=== PATIENT | male | born 1940 | race Caucasian/White ===

== ENCOUNTER 2023-03-27 14:25 | Emergency (ER) | payer MEDICARE, OTHER, SELFPAY ==
[2023-03-27 14:29] VITALS: BP 115/70
--- NOTE | 2023-03-27 15:27 | ED.MUSCINJ ---
HPI-Injury
General
Chief Complaint: Musculo-Skeletal Complaint
Source: patient and spouse
Exam Limitations: none
Time Seen by Provider: 03/27/23 15:16
Nursing documentation reviewed up to this point in time: agreed with
Travel History
Have you had any contact with someone who has COVID-19?: No
Do you have any symptoms of coronavirus? Fever > 100 degrees, chills, cough, shortness of breath, sore throat, loss of taste or smell, muscle aches, or headache?: No
History of Present Illness-Injury
Is this injury a work related problem?: No
[facility] No
Initial Injury comments:
Patient was attempting to urinate in a bottle and urine spilled. He slipped on urine and fell. Sustained a laceration to his left dorsal hand. has been caring for wound, antibiotic ointment and dressing. States yesterday hand began to become
red. SHe had amoxicilling 500mg at home. He has had 3 doses without improvement. He was evaluated at urgent care and advised to come to ED. Denies fever/chills. Full ROM to hand. Injury occurred 1 week ago. 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 On at
time of fall.
Past History
Past History
ED Past Medical History: Arrthythmia (atrial fibrillation), Cancer (Lung, prostate, Skin CA), CHF, COPD, GERD, HTN, Hypercholesterolemia, Hypothyroidism, Psychiatric (Anxiety, Depression) and Other (TBI, Sleep apnea, CPCP, Renal calculus, Detached
retina, )
ED Past Surgical History: Cardiac (Pacemaker/Def for VF, Ablation X 2, ), Orthopedic (Plate in cervical spine) and Other (Prostatectomy, resection of a lung mass, surgery for a left detached retina,. AAA, Hernia, )
Social History
Tobacco: Former smoker
Alcohol: None
Drug: None
Personal:
Living: with family
Employment: Employed
Family History
Family History: Other (Mother with cancer of the breast followed with COPD)
Review of Systems
Review of Systems
Allergies reviewed?: Yes
All Other Systems: ROS reviewed and negative except as documented in HPI and ROS
Constitutional: Reports no symptoms
Musculoskeletal: Reports other (Full ROM to left hand, neurovasculary intact.)
Skin: Reports other (4cm granulated wound dorsum of left hand. Surrounding erythema and swelling. MInimal bloody discharge. )
Neurological: Reports no symptoms
Psychiatric: Reports no symptoms
Musculoskeletal Injury Exam
Musculoskeletal Injury Exam
Left Dorsal Hand:
Pain with Movement?: Moderate
Tender to palpation?: Moderate
Soft tissue swelling?: Moderate
External deformity and angulation?: None
Joint effusion?: None
Contusion?: Moderate
Hematoma-local bleeding into tissue?: None
Strain- Sprain- Tear (Connective tissue injury)?: Moderate
Crepitus with movement?: No
Joint instability?: No
Malalignment/deformity?: No
Range of motion: Full
Distal skin color and temperature: normal-warm & good color
Capillary Refill: normal
Normal distal neurovascular exam?: Yes
Peripheral Pulses: radial (left): 3+
Phy Exam
General Physical Exam
General Presentation: well appearing and no apparent distress
General age: appears stated age
General Skin: warm and dry
General Habitus: normal
General Mental: alert
Musculoskeletal Exam
Musculoskeletal Exam: full ROM and neuro vasc intact
Skin Exam
Skin Exam: normal color, warm/dry, no rash and other (4cm granulatedlaceraton to dorsum of left hand. Surrounding erythema)
Psychiatric Exam
Psychiatric Exam: normal mood/affect
Injury Course
Orders/Labs/Results
Orders:
Orders
03/27/23 14:32
Hand, Left 3 View [CR Hand - Left Min 3 Views] Urgent
Comment:
Reason For Exam: swelling after fall
03/27/23 15:29
Complete Blood Count/With Diff Urgent
Comprehensive Metabolic Panel Urgent
Lactate Level [Lactic Acid] Urgent
Prothrombin Time Urgent
Wound Culture [Wound/Abscess/Other Culture] Urgent
LALI Source: Hand
Specimen Description: Left
Date Specimen was Collected: 03/27/23
Time Specimen was Collected: 15:28
03/27/23 16:02
Doxycycline [Vibramycin] 100 mg PO NOW STA
03/27/23 16:10
Tetanus/Diphth/Acelpertussis [Adacel] 0.5 ml IM .ONCE ONE
Abnormal Lab Results
03/27/23
15:29
RBC 4.17 L 10^6/uL
(4.70-6.10)
Hgb 12.7 L g/dL
(13.0-18.0)
MCHC 32.5 L g/dL
(33.0-37.0)
RDW 14.8 H %
(11.5-14.5)
Absolute Lymphs (auto) 0.9 L 10^3/uL
(1.2-3.4)
Neutrophils % 77.6 H %
(42.2-75.2)
Lymphocytes % 12.3 L %
(20.5-51.1)
PT 21.2 H Sec
(11.4-14.6)
BUN 29 H mg/dl
(9-20)
Creatinine 1.4 H mg/dL
(0.7-1.3)
Glucose 105 H mg/dl
(70-99)
03/27/23 15:29
03/27/23 15:29
*Critical Care Note
Total Time (30-74mins, 75-104mins- exclusive of procedures): Not Applicable
ED Attending Note
-
Portions of this chart may have been created with voice recognition software.� Occasional wrong word or��sound alike� substitutions may have occurred due to the inherent limitations of voice recognition software.
Discharge Plan
Departure
Patient Disposition: Home (Routine Discharge)
Date of Disposition: 03/27/23
Time of Disposition: 16:03
Patient with high blood pressure during this ER visit?: No
Condition: Good
Covid-19: Not Applicable
Discharge Problem:
Cellulitis
Instructions: Wound Care (DC), Cellulitis (Skin Infection), Adult (DC)
Prescriptions:
New
doxycycline hyclate 100 mg capsule
100 mg PO BID Qty: 20 0RF
No Action
amiodarone [Pacerone] 200 MG tablet
200 mg PO DAILY
magnesium 200 MG tablet
200 mg PO Q48H
Entresto 1 EACH tablet
1 ea PO BID
Rx Instructions:
24-26mg
sertraline 100 MG tablet
100 mg PO HS
omeprazole 40 MG capsule,delayed release(DR/EC)
20 mg PO BID
spironolactone 25 MG tablet
12.5 mg PO DAILY
cholecalciferol (vitamin D3) 2,000 UNITS tablet
2,000 units PO DAILY
melatonin 10 MG tablet
10 mg PO HS
multivitamin 1 EACH tablet
1 ea PO DAILY
vitamin B complex 1 TAB tablet
1 tab PO DAILY
atorvastatin 80 mg Tablet
80 mg PO HS
carvedilol 6.25 mg Tablet
6.25 mg PO BID
divalproex 250 mg Tablet,Delayed Release (Dr/Ec)
250 mg PO BID
acetaminophen 500 mg Tablet
1,000 mg PO BID
methyl salicylate-menthol Ointment
0 ea TOPICAL TIDPRN PRN (Reason: back pain)
vitamins-lipotropics Tablet
1 tab PO BID
warfarin [Jantoven] 4 MG tablet
4 mg PO QPM
acetaminophen 325 mg Tablet
650 mg PO Q4HPRN PRN (Reason: mild pain/STEELE) Qty: 30 0RF
alprazolam 0.25 MG tablet
0.25 mg PO DAILYPRN PRN (Reason: anxiety) Qty: 2 0RF
Patient Comments:
01/02/22: Per PDMP, last filled 07/18/21 #90 for 30 days
levothyroxine [Synthroid] 25 mcg Tablet
25 mcg PO DAILY
lidocaine [Lidoderm] 5 % Adhesive Patch,Medicated
1 patch TOPICAL DAILY
oxybutynin chloride 5 mg Tablet
5 mg PO DAILY
vitamins-lipotropics Tablet
1 tab PO DAILY
ciprofloxacin HCl 750 mg tablet
750 mg PO BID Qty: 8 0RF
prednisone 10 mg Tablet
See Rx Instructions .ROUTE .COMPLEX Qty: 20 0RF
Rx Instructions:
Take By Mouth:
40 mg daily x2 days, 30 mg daily x2 days,
20 mg daily x2 days, 10 mg daily x2 days
Referrals:
NONE,* [Active] -
Activity Restrictions/Additional Instructions:
Warm compresses to hand 15-20 minutes at a time, 4-5 times daily. Return to the emergency department immediately for fever/chills, increasing redness/swelling/pain to hand, or for any further concerns. Keep wound clean with soap and water, apply
antibiotic ointment two times daily. Keep your hand elevated.
Interventions
Interventions:
*Risk Screen - Suicide Last Done: 03/27/23 15:25
*General Assessment Last Done: 03/27/23 15:25
*Neglect/Abuse Screening Last Done: 03/27/23 15:25
ED- Fall Risk Assessment Last Done: 03/27/23 16:40
*ED COVID-19 Vaccine History Last Done: 03/27/23 15:25
*Nursing Disposition Last Done: 03/27/23 16:40
ED-Musculoskeletal Assessment Last Done: 03/27/23 15:25
Discharge Date and Time
Discharge Date/Time: 03/27/23 16:41
[2023-03-27 15:50] LABS: % Basophils 0.3 % (0-2); % Eosinophils 0.9 % (0-6); % Immature Granulocytes 0.3 % (0-0.5); % Lymphocytes 12.3 % (20.5-51.1); % Monocytes 8.6 % (1.7-9.3); % Neutrophils 77.6 % (42.2-75.2); Absolute Eosinophils 0.1 10^3/uL (0-0.7); Absolute Lymphocytes 0.9 10^3/uL (1.2-3.4); Absolute Monocytes 0.6 10^3/uL (0.1-0.6); Absolute Neutrophils 5.8 10^3/uL (1.4-6.5); Hematocrit 39.1 % (39.0-52.0); Hemoglobin 12.7 g/dL (13.0-18.0); Mean Corp Hgb Conc. 32.5 g/dL (33.0-37.0); Mean Corpuscular Hgb 30.5 pg (27.0-31.0); Mean Corpuscular Volume 93.8 fL (80.0-94.0); Mean Platelet Volume 10.3 fL (7.4-10.4); Nucleated Red Blood Cells % 0 % (-); Platelet Count 134 10^3/uL (130-400); Red Blood Cell Count 4.17 10^6/uL (4.70-6.10); Red Cell Dist. Width 14.8 % (11.5-14.5); White Blood Cell Count 7.5 10^3/uL (4.8-10.8)
[2023-03-27 15:57] LABS: INR 1.86; PT 21.2 Sec (11.4-14.6)
[2023-03-27 16:00] LABS: Lactic Acid 1.1 mmol/L (0.7-2.0)
[2023-03-27 16:11] LABS: ALT (SGPT) 27 U/L (0-50); AST (SGOT) 28 U/L (17-59); Alkaline Phosphatase 98 U/L (38-126); Blood Urea Nitrogen 29 mg/dl (9-20); Calcium 8.9 mg/dl (8.4-10.2); Carbon Dioxide 29 mmol/L (22-30); Chloride 99 mmol/L (98-107); Glucose 105 mg/dl (70-99); Sodium 138 mmol/L (135-145); Total Bilirubin 0.8 mg/dl (0.2-1.3); Total Protein 6.5 g/dl (6.3-8.2); eGFR 50.81
[2023-03-27] MEDS: VIBRAMYCIN 100 MG PO (16:21)
[2023-03-27] MEDS: ADACEL 0.5 ML IM (16:22)
== END 2023-03-27 16:41 | disposition home or self-care (01) ==
LOC: EMR 14:25
PROVIDERS: Nurse Practitioner; EMERGENCY PHYSICIAN Student in an Organized Health Care Education/Training Program; FAMILY PHYSICIAN Internal Medicine
DX: L03.114 Cellulitis of left upper limb (principal); S61.412A Laceration without foreign body of left hand, initial encounter; W01.0XXA Fall on same level from slipping, tripping and stumbling without subsequent striking against object, initial encounter; Z87.891 Personal history of nicotine dependence; Z23 Encounter for immunization
CPT/HCPCS: 99285; 90471; 73130; 80053; 83605; 85025; 85610; 87070; 87147; 87186; 87205; 90715

== ENCOUNTER 2023-03-31 08:12 | Emergency (ER) | payer MEDICARE, OTHER, SELFPAY ==
[2023-03-31] VITALS (10 sets, daily range): BP systolic 87–128; BP diastolic 52–85; PULSE 80; O2SAT 96; BMI 32.9
--- NOTE | 2023-03-31 08:23 | ED.GENMED ---
History of Present Illness
General
Chief Complaint: Generalized Pain
Source: patient and spouse
Exam Limitations: none
Time Seen by Provider: 03/31/23 08:14
Nursing documentation reviewed up to this point in time: agreed with
History of Present Illness
History of Present Illness:
83-year-old male with history of neck surgery with cadaver bones and a plate, states he awakened at 430 this morning when he got up to urinate, with severe 10/10 left-sided neck pain that radiates down to left shoulder. He took an oxycodone 2.5 mg
and Justin-flowers topical at 6 AM with little relief. He denies any recent overuse or injury. He denies weakness, numbness or tingling in his arms.
Past History
Past History
ED Past Medical History: Arrthythmia (atrial fibrillation), Cancer (Lung, prostate, Skin CA), CHF, COPD, GERD, HTN, Hypercholesterolemia, Hypothyroidism, Psychiatric (Anxiety, Depression) and Other (TBI, Sleep apnea, CPCP, Renal calculus, Detached
retina, )
ED Past Surgical History: Cardiac (Pacemaker/Def for VF, Ablation X 2, ), Orthopedic (Plate in cervical spine) and Other (Prostatectomy, resection of a lung mass, surgery for a left detached retina,. AAA, Hernia, )
Social History
Tobacco: Former smoker
Alcohol: None
Drug: None
Personal:
Living: with family
Employment: Employed
Family History
Family History: Other (Mother with cancer of the breast followed with COPD)
Review of Systems
Review of Systems
Allergies reviewed?: Yes
All Other Systems: ROS reviewed and negative except as documented in HPI and ROS
Constitutional: Denies fever or chills
EENT: Denies sore throat
Respiratory: Denies trouble breathing
Cardiac: Denies chest pain
ABD/GI: Denies abdominal pain or nausea
Musculoskeletal: Reports neck pain
Skin: Reports other (scattered psoriatic patches)
Neurological: Denies headache, weakness or numbness
Phy Exam
Physical Exam
Physical Exam:
GENERAL: No acute distress. A&Ox3.
CONSTITUTIONAL: Afebrile.
EYES: Clear, conjunctivae normal
ENMT: moist mucus membranes, Pharynx nl
RESPIRATORY: Regular respirations, nonlabored, lungs clear.
CARDIOVASCULAR: Regular rate and rhythm, no murmurs, no rubs.
GI: Soft, nontender, normal BS
MUSCULOSKELETAL: No bony neck tenderness. Left paracervical soft tissue tenderness with palpation. Head is rotated slightly to the left due to pain. Well perfused.
SKIN: Warm, dry, pink
PSYCH: Normal mood and affect. Well kept, interactive and appropriate
NEUROLOGIC: Awake, alert and oriented. No focal neurological deficits. Hand grasp equal, 5/5. Sensation to touch equal bilateral upper extremities.
Course
Orders/Labs/Results
Orders:
Orders
03/31/23 08:22
Acetaminophen [Tylenol] 650 mg PO NOW STA
Diazepam [Valium] 5 mg PO NOW STA
CR Cervical Spine 2 or 3 Vw Urgent
Comment:
Reason For Exam: woke with left side neck pain
03/31/23 10:56
Physical Therapy Consult [Pt Eval And Treat] Urgent
Treatment: ambulate with walker
Activity Level: As Tolerated
03/31/23 12:09
Case Management Consult ONCE
Case Management Consult: Discharge Planning
Requested By:: PHYSICIAN
Comment: P/T in and P/T don't think safe to go home. works at [employer] and wants to know if
he can go there for rehab Pt has TBI and gets frequent home P/T
Vital Signs
Initial and Last Documented VS:
Initial Vital Signs
Temp Pulse Resp BP Pulse Ox
98.2 F 88 17 128/85 93
03/31/23 08:16 03/31/23 08:16 03/31/23 08:16 03/31/23 08:16 03/31/23 08:16
Last Documented Vital Signs
Temp Pulse Resp BP Pulse Ox
98.5 F 80 19 100/58 96
03/31/23 13:15 03/31/23 13:01 03/31/23 13:01 03/31/23 13:01 03/31/23 13:15
MDM/Problems Addressed
Differential Diagnosis Includes:
Torticollis, DJD, arthritis flare
MDM/Problems Addressed:
83-year-old male with history of neck surgery with cadaver bones and a plate, states he awakened at 430 this morning when he got up to urinate, with severe 10/10 left-sided neck pain that radiates down to left shoulder. He took an oxycodone 2.5 mg
and Justin-flowers topical at 6 AM with little relief. He denies any recent overuse or injury. He denies weakness, numbness or tingling in his arms.
No recent injury
03/31/2023 1018 AM
Patient more comfortable after Valium
C-spine xray radiology result reviewed: IMPRESSION:
Significant degenerative disk and joint disease. Prior anterior fusion at C5-6. Mild anterior listhesis of C3 on C4.
No definite acute process.
03/31/2023 1056 AM
Cervical spine x-ray radiology report read: IMPRESSION:
Significant degenerative disk and joint disease. Prior anterior fusion at C5-6. Mild anterior listhesis of C3 on C4.
Patient remains somnolent but arousable
at bedside is concerned with him going home due to his history of falls and his imbalance issues. She states [facility] him more physical therapy.
Due to this history and 's concern, will have physical therapy evaluate to be sure he is safe to go home to ambulate with a walker as usual.
03/31/2023 1233 PM
Physical therapy and an states the patient is unsteady with his walker and is at a risk for falls
at bedside states he does fall, is unsteady on his feet but this is nothing new. She states she has noted a decline in his physical abilities
Case management in and spoke with and daughter and patient, there is no funding for him to go into a rehab facility for physical therapy. She will order home physical and Occupational Therapy.
and daughter are comfortable with this plan.
I offered to admit him overnight but they declined
They say they have help at home to get him into the house, various family members stay with him as he is not safe to stay alone, this is nothing new
Patient asking for a muscle relaxant, I prescribed 5 pills of Flexeril to be given only at bedtime if needed. Family informed that muscle relaxants can put him at even more risk of a fall so only take at bedtime.
Chronic conditions affecting care:
chronic neck pain, previous neck surgery.
*Critical Care Note
Total Time (30-74mins, 75-104mins- exclusive of procedures): Not Applicable
ED Attending Note
-
Portions of this chart may have been created with voice recognition software.� Occasional wrong word or��sound alike� substitutions may have occurred due to the inherent limitations of voice recognition software.
Discharge Plan
Departure
Patient Disposition: Home (Routine Discharge)
Date of Disposition: 03/31/23
Time of Disposition: 12:35
Patient with high blood pressure during this ER visit?: No
Condition: Fair
Discharge Problem:
Acute torticollis
Instructions: Torticollis, Adult, Osteoarthritis (DC)
Prescriptions:
No Action
amiodarone [Pacerone] 200 MG tablet
200 mg PO DAILY
magnesium 200 MG tablet
200 mg PO Q48H
Patient Comments:
03/31/2023, have not taken since starting antibiotic.
sertraline 100 MG tablet
100 mg PO DAILY
omeprazole 40 MG capsule,delayed release(DR/EC)
40 mg PO DAILY
Patient Comments:
03/31/2023, have not taken since starting antibiotic.
multivitamin 1 EACH tablet
1 ea PO DAILY
Patient Comments:
03/31/2023, have not taken since starting antibiotic.
vitamin B complex 1 TAB tablet
1 tab PO DAILY
Patient Comments:
03/31/2023, have not taken since starting antibiotic.
atorvastatin 80 mg Tablet
80 mg PO QPM
Patient Comments:
03/31/2023, have not taken since starting antibiotic.
carvedilol 6.25 mg Tablet
6.25 mg PO BID
divalproex 250 mg Tablet,Delayed Release (Dr/Ec)
250 mg PO BID
warfarin [Jantoven] 4 MG tablet
4 mg PO QPM
Patient Comments:
03/31/2023, used [facility] records from 05/01/2022 to confirm this med.
doxycycline hyclate 100 mg capsule
100 mg PO BID Qty: 20 0RF
Patient Comments:
03/31/2023, pt. filled this med. on 03/27/2023 and is instructed to take one capsule BID for 10 days; last dose is next Thursday (04/06/2023) night per pt.'s spouse.
acetaminophen [Tylenol Extra Strength] 500 mg Tablet
1,000 mg PO BID
triamcinolone acetonide 0.1 % Cream
1 applic TOPICAL BID
Patient Comments:
03/31/2023, pt.'s spouse unsure if pt. uses this med. or not.
levothyroxine 75 mcg Tablet
75 mcg PO DAILY
alprazolam 0.25 mg Tablet
0.25 mg PO DAILY PRN (Reason: anxiety attacks)
Patient Comments:
03/31/2023, pt. filled this med. on 03/03/2023 for 40 tablets according to PDMP.
gabapentin 300 mg Capsule
300 mg PO HS
Lipoflavonoid Tablet
1 tab PO QPM
Patient Comments:
03/31/2023, have not taken since starting antibiotic.
oxycodone 5 mg Tablet
2.5 mg PO Q6H PRN (Reason: severe pain)
Patient Comments:
03/31/2023, pt. filled this med. on 12/05/2022 for 15 tablets according to PDMP.
neomycin-polymyxin B-dexameth 3.5 mg/g-10,000 unit/g-0.1 % ointment
1 applic BOTH EYES HS
Patient Comments:
03/31/2023, pt.'s spouse states that she applies an ointment to pt.'s eyelids HS but is unsure of its name.
Rx Instructions:
03/31/2023, apply to B/L eyelids.
cholecalciferol (vitamin D3) 50 mcg (2,000 unit) Tablet
50 mcg PO DAILY
Patient Comments:
03/31/2023, have not taken since starting antibiotic.
Entresto 24-26 mg Tablet
1 tab PO BID
Glucosamine Chondroitin
1 tab PO QPM
Patient Comments:
03/31/2023, have not taken since starting antibiotic.
alprazolam 0.25 MG tablet
0.25 mg PO HS
Patient Comments:
03/31/2023, pt. filled this med. on 03/03/2023 for 40 tablets according to PDMP.
Referrals:
Your, Doctor [Other] - As needed
UNKNOWN - PT NOT,INTERVIEWE [Family Provider] -
Activity Restrictions/Additional Instructions:
As we discussed, our egg caser is arranging physical therapy and Occupational Therapy at home.
Since Jermiane is already taking alprazolam as needed, this is a muscle relaxant and you can give it as needed for severe muscle spasms of the neck.
I canceled the prescription for cyclobenzaprine muscle relaxant since you have the alprazolam
Use walker at all times when up and around.
Heating pad to the neck may help relax the muscles. Move your neck as much as you can to avoid it stiffening up.
You have significant arthritis in your neck which may add to the neck pain.
Interventions
Interventions:
*Risk Screen - Suicide Last Done: 03/31/23 08:16
*General Assessment Last Done: 03/31/23 08:16
*Neglect/Abuse Screening Last Done: 03/31/23 08:25
ED- Fall Risk Assessment Last Done: 03/31/23 13:15
*ED COVID-19 Vaccine History Last Done: 03/31/23 08:16
*Nursing Disposition Last Done: 03/31/23 13:15
Discharge Date and Time
Discharge Date/Time: 03/31/23 13:17
[2023-03-31] MEDS: TYLENOL 650 MG PO (08:32)
[2023-03-31] MEDS: VALIUM 5 MG PO (08:33)
--- NOTE | 2023-03-31 10:09 | PHANOTE ---
03/31/2023, med rec tech, spoke to pt.'s spouse to obtain pt.'s med. history; spouse states she applies an ointment to pt.'s B/L eyelids HS but is unsure of its name; she also states that she is unsure if pt. is using his Triamcinolone Acetonide
0.1% cream BID (filled: 03/16/2023). Pt. filled [id number] Eye Ointment on 03/16/2023. I included both of these meds. on pt.'s med. list using pharmacy fill data but could not confirm them with any other source.
--- NOTE | 2023-03-31 12:36 | CM ---
CM reviewed medical records. CM met with bassamtent and in room. Patient does not have Medicare Funding for SNF and family is unable to privately pay. would be agree[facility] to [facility]. Referral sent via [facility]. Patient's daughter and son are
available for assistance.
Referral sent via [facility].
== END 2023-03-31 13:17 | disposition home or self-care (01) ==
LOC: EMR 08:12
PROVIDERS: EMERGENCY PHYSICIAN Emergency Medicine
DX: M43.6 Torticollis (principal); I48.91 Unspecified atrial fibrillation; I11.0 Hypertensive heart disease with heart failure; I50.9 Heart failure, unspecified; E03.9 Hypothyroidism, unspecified; E78.00 Pure hypercholesterolemia, unspecified; F32.A Depression, unspecified; F41.9 Anxiety disorder, unspecified; G47.30 Sleep apnea, unspecified; J44.9 Chronic obstructive pulmonary disease, unspecified; K21.9 Gastro-esophageal reflux disease without esophagitis; Z87.442 Personal history of urinary calculi; Z87.891 Personal history of nicotine dependence; Z90.79 Acquired absence of other genital organ(s); Z95.0 Presence of cardiac pacemaker; Z98.1 Arthrodesis status
CPT/HCPCS: 99283; 72040

== ENCOUNTER 2023-05-06 06:41 | Inpatient (IN) | payer MEDICARE, OTHER, SELFPAY ==
[2023-05-06] VITALS (8 sets, daily range): BP systolic 101–120; BP diastolic 58–78; PULSE 86–95; BMI 29.8; BMI 33.9
--- NOTE | 2023-05-06 02:00 | ED.MUSCINJ ---
HPI-Injury
General
Chief Complaint: Fall
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
Exam Limitations: none
Time Seen by Provider: 05/06/23 01:42
Nursing documentation reviewed up to this point in time: agreed with
Travel History
Have you had any contact with someone who has COVID-19?: No
Do you have any symptoms of coronavirus? Fever > 100 degrees, chills, cough, shortness of breath, sore throat, loss of taste or smell, muscle aches, or headache?: No
History of Present Illness-Injury
Initial Injury comments:
Pleasant 83-year-old male who presents with left ankle pain. He states he slid out of bed and got his foot caught under the dresser. He reports instant pain. Denies knee pain. Denies head injury or loss of consciousness. Reports no other injury
or pain.
Past History
Past History
ED Past Medical History: Arrthythmia (atrial fibrillation), Cancer (Lung, prostate, Skin CA), CHF, COPD, GERD, HTN, Hypercholesterolemia, Hypothyroidism, Psychiatric (Anxiety, Depression) and Other (TBI, Sleep apnea, CPCP, Renal calculus, Detached
retina, )
ED Past Surgical History: Cardiac (Pacemaker/Def for VF, Ablation X 2, ), Orthopedic (Plate in cervical spine) and Other (Prostatectomy, resection of a lung mass, surgery for a left detached retina,. AAA, Hernia, )
Social History
Tobacco: Former smoker
Alcohol: None
Drug: None
Personal:
Living: with family
Employment: Employed
Family History
Family History: Other (Mother with cancer of the breast followed with COPD)
Review of Systems
Review of Systems
Allergies reviewed?: Yes
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
All Other Systems: ROS reviewed and negative except as documented in HPI and ROS
Constitutional: Reports no symptoms
EENT: Reports no symptoms
Respiratory: Reports no symptoms
Cardiac: Reports no symptoms
ABD/GI: Reports no symptoms
: Reports no symptoms
Musculoskeletal: Reports joint pain and muscle pain
Skin: Reports no symptoms
Neurological: Reports no symptoms
Endocrine: Reports no symptoms
Hematologic/Lymphatic: Reports no symptoms
Psychiatric: Reports no symptoms
Phy Exam
General Physical Exam
General Presentation: well appearing and mild distress
General age: appears stated age
General Skin: warm and dry
General Habitus: normal and elderly
General Mental: alert
Pulmonary Exam
Pulmonary Exam: no respiratory distress
Neurological Exam
Neurological Exam: alert and oriented x3
Musculoskeletal Exam
Musculoskeletal Exam: joint swelling (Left ankle) and neuro vasc intact
Skin Exam
Skin Exam: normal color and warm/dry
Psychiatric Exam
Psychiatric Exam: normal mood/affect
Injury Course
Orders/Labs/Results
Orders:
Orders
05/06/23 01:49
Ankle, left 3 view CR [CR Ankle - Left Min 3 Views ] Urgent
Comment:
Reason For Exam: pain after fall
05/06/23 02:59
CR Chest - 2 Views Urgent
Comment:
Reason For Exam: cough
05/06/23 03:21
Ipratropium/Albuterol Sulfate [Duoneb] 3 ml INH R NOW ONE
05/06/23 04:09
Knee, Left 4 or More Views [CR Knee - Left 4 Or More View*] Urgent
Comment:
Reason For Exam: pain
05/06/23 05:25
BMP [Basic Metabolic Panel] Urgent
CBC/With Diff [Complete Blood Count/With Diff] Urgent
COVID-19 Antigen Urgent
Source: Nasal Swab
PT/INR [Prothrombin Time] Urgent
05/06/23 06:16
Admit/Transfer Patient As Directed
Co-Sign Provider:
Level of Care: Inpatient admission
Assign to:: Telemetry
Physician / Group: Louie
Diagnosis: COVID, Weakness, Fall
Reason for Telemetry: Arrhythmia
Date to Stop Telemetry: 05/09/23
Time to Stop Telemetry: 11:00
Reason for Hospitalization: COVID, Weakness, Fall
Expected length of stay greater than two midnights?: Yes
ELOS- Estimated Length of Stay in days: 3
I certify the patient meets the requirements for IP care: Yes
05/06/23 06:19
Code Status As Directed
Resuscitation Status: Do not resuscitate
Reached after discussion with pt or family/Healthcare POA: Yes
05/06/23 06:21
DNR Bracelet Application ONCE
05/06/23 16:45
Albuterol [ProAIR HFA INHALER] 2 puff INH R Q4HPRN PRN
Benzonatate [Tessalon Perles] 100 mg PO TIDPRN PRN
Divalproex Delayed Rel. 12 Hr [Depakote (12 Hr Release)] 250 mg PO BID
Levothyroxine [Synthroid] 75 mcg PO DAILY AT 0700
Sertraline HCl [Zoloft] 100 mg PO DAILY
05/06/23 16:45
Activity As Directed
Activity Level: Ambulate
With Assistance
Bladder Scan As Directed
Follow Bladder Retention/Intermittent Cath Algorithm?: Yes
PRN if no void in __ hours: 6
Frequency: Per Retention Algorithm
If Bladder Scan Result >: 400
then:: Straight cath
Braces/Immobilizers As Directed
Type of Brace/Immobilizer: Darco Boot
Location for Brace/Immobilizer: L Ankle
EKG with chest pain [ECG as needed] As Directed
ECG as needed for:: Chest Pain
I/O [Intake/ Output] As Directed
Frequency: Per unit guidelines
Neurological Checks As Directed
Frequency: q4h
Orthostatic Vital Signs As Directed
Orthostatic VS Frequency: BID
Pneumatic Compression Sleeves As Directed
Type: Knee high
Precautions As Directed
Type of Precautions: Droplet
Aspiration
Seizure
Straight Cath As Directed
Frequency: Per Retention Algorithm
Additional Instructions: straight cath as needed per acute urinary retention algorithm for 24 hrs
Additional Instructions: for bladder scan greater than 400 mL
Vital Signs As Directed
Frequency: Per unit guidelines
Weight As Directed
Frequency: Daily
Oxygen Therapy [O2 Therapy] [RESP] Routine
Titrate/Wean O2 to maintain O2 sat greater than (%): 94
Ot Eval And Treat Routine
PT Consult [Pt Eval And Treat] Routine
Activity Level: Ambulate
With Assistance
Speech Therapy Eval & Treat Routine
DX Deep Vein Thrombosis Video Routine
05/06/23 17:00
Pantoprazole [Protonix] 40 mg PO DAILY
05/06/23 20:20
Urinalysis Reflex To Culture Urgent
Date Specimen was Collected: 05/06/23
Time Specimen was Collected: 20:16
05/06/23 22:00
Melatonin 10 mg PO HS
05/07/23 Breakfast
NPO
Allow oral meds: Yes
Allow clear liquids: Sips of Clears
05/07/23 06:25
Complete Blood Count/No Diff IN AM
PT/INR [Prothrombin Time] IN AM
05/08/23 05:35
Complete Blood Count/No Diff IN AM
PT/INR [Prothrombin Time] IN AM
05/09/23 06:37
Complete Blood Count/No Diff IN AM
PT/INR [Prothrombin Time] IN AM
05/09/23 11:00
DC Protocol for Telemetry ONCE
05/10/23 06:00
Complete Blood Count/No Diff IN AM
PT/INR [Prothrombin Time] IN AM
05/11/23 06:00
Basic Metabolic Panel IN AM
Complete Blood Count/No Diff IN AM
PT/INR [Prothrombin Time] IN AM
Abnormal Lab Results
05/06/23
05:25
RBC 4.17 L 10^6/uL
(4.70-6.10)
Hgb 12.6 L g/dL
(13.0-18.0)
Hct 38.4 L %
(39.0-52.0)
MCHC 32.8 L g/dL
(33.0-37.0)
Plt Count 116 L 10^3/uL
(130-400)
Absolute Lymphs (auto) 0.3 L 10^3/uL
(1.2-3.4)
Absolute Monos (auto) 0.7 H 10^3/uL
(0.1-0.6)
Neutrophils % 85.7 H %
(42.2-75.2)
Lymphocytes % 3.8 L %
(20.5-51.1)
Monocytes % 10.0 H %
(1.7-9.3)
PT 30.0 H Sec
(11.4-14.6)
BUN 21 H mg/dl
(9-20)
Glucose 107 H mg/dl
(70-99)
SARS-CoV-2 Antigen Positive A
(Negative)
05/06/23 05:25
05/06/23 05:25
*Radiology
Radiology exam reviewed: radiology read reviewed
*Pulse Oximetry
Patient hypoxic: no
*Critical Care Note
Total Time (30-74mins, 75-104mins- exclusive of procedures): Not Applicable
Update Note
Update Note:
05/06/2023 0259 AM: Patient's now present at the bedside. She states that he has had a cough for few days and wishes to have it evaluated.
05/06/2023 0450 AM: concerned that she cannot care for him medically at the private home. He has had frequent falls. She requested imported to the hospital to possibly get rehab placement
ED Attending Note
-
Portions of this chart may have been created with voice recognition software.� Occasional wrong word or��sound alike� substitutions may have occurred due to the inherent limitations of voice recognition software.
Discharge Plan
Departure
Patient Disposition: Admit
Date of Disposition: 05/06/23
Time of Disposition: 04:52
Presentation/result/management discussed w/ accepting MD/DO: Hospitalist
Patient with high blood pressure during this ER visit?: No
Condition: Fair
Discharge Problem:
Ankle sprain
Interventions
Interventions:
*Risk Screen - Suicide Last Done: 05/06/23 17:06
*General Assessment Last Done: 05/06/23 01:39
*Neglect/Abuse Screening Last Done: 05/06/23 01:39
ED- Fall Risk Assessment Last Done: 05/06/23 01:39
*ED COVID-19 Vaccine History Last Done: 05/06/23 17:04
*Nursing Disposition Last Done: 05/06/23 05:34
ED-Musculoskeletal Assessment Last Done: 05/06/23 01:42
ED- Neurological Assessment Last Done: 05/06/23 01:39
ED-Skin Assessment Last Done: 05/06/23 01:42
Discharge Date and Time
Discharge Date/Time: 05/06/23 17:06
[2023-05-06] MEDS: DUONEB 3 ML INH (03:23)
[2023-05-06 05:38] LABS: % Basophils 0.1 % (0-2); % Eosinophils 0.1 % (0-6); % Immature Granulocytes 0.3 % (0-0.5); % Lymphocytes 3.8 % (20.5-51.1); % Neutrophils 85.7 % (42.2-75.2); Absolute Lymphocytes 0.3 10^3/uL (1.2-3.4); Absolute Monocytes 0.7 10^3/uL (0.1-0.6); Absolute Neutrophils 5.8 10^3/uL (1.4-6.5); Hematocrit 38.4 % (39.0-52.0); Hemoglobin 12.6 g/dL (13.0-18.0); Mean Corp Hgb Conc. 32.8 g/dL (33.0-37.0); Mean Corpuscular Hgb 30.2 pg (27.0-31.0); Mean Corpuscular Volume 92.1 fL (80.0-94.0); Mean Platelet Volume 10.2 fL (7.4-10.4); Nucleated Red Blood Cells % 0 % (-); Platelet Count 116 10^3/uL (130-400); Red Blood Cell Count 4.17 10^6/uL (4.70-6.10); Red Cell Dist. Width 14.3 % (11.5-14.5); White Blood Cell Count 6.8 10^3/uL (4.8-10.8)
[2023-05-06 05:47] LABS: COVID-19 Antigen Positive (Negative); INR 2.87
[2023-05-06 05:54] LABS: Blood Urea Nitrogen 21 mg/dl (9-20); Calcium 8.6 mg/dl (8.4-10.2); Carbon Dioxide 30 mmol/L (22-30); Chloride 101 mmol/L (98-107); Glucose 107 mg/dl (70-99); Potassium 4.6 mmol/L (3.5-5.1); Sodium 140 mmol/L (135-145); eGFR 55.19
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
[2023-05-06] MEDS: PAXLOVID 2X150 MG-100 MG DOSE PACK 1 DOSE PO (10:31)
--- NOTE | 2023-05-06 10:39 | PHANOTE ---
05/06/2023, [facility], used recent pharmacy fill data and [facility] records from 05/02/2023 to compile a list of pt.'s meds.; attempted to call pt.'s spouse twice but was unsuccessful; pt. does not know their own meds. stating that their spouse manages
them; was not able to confirm pt.'s meds.
[2023-05-06] MEDS: TYLENOL 650 MG PO ×2 (11:56→18:08)
[2023-05-06] MEDS: DECADRON 6 MG IV (11:57)
[2023-05-06] MEDS: NSS 30 IV (12:09)
[2023-05-06] MEDS: VEKLURY 250 MG IV (12:09)
--- NOTE | 2023-05-06 13:40 | PTOTSP ---
SPEECH THERAPY SWALLOW EVALUATION:
Clinical signs of pharyngeal dysphagia, likely chronic related to history of TBI and lung cancer with prior excision surgery and radiation, and acutely exacerbated by COVID infection and respiratory status. Patient endorsing difficulty with solids
and whole pills at baseline; exhibiting signs of aspiration with thin liquids and purees during CSE. Patient remains at high risk for aspiration and related complications given tenuous respiratory status. Recommend instrumental assessment of
swallowing via Videofluoroscopic Swallowing Study to further assess swallow function. Recommend temporary NPO except for necessary medications crushed in puree and occasional ice chips with RN assist until VSE. Speech therapy to follow, provide
further recommendations following results of VSE, provide continued education regarding aspiration risks and precautions, and provide diagnostic swallow therapy as appropriate.
RECOMMEND:
1) Videofluoroscopic Swallowing Study
2) temporary NPO
3) necessary medications crushed in puree
4) occasional ice chips with RN assist
5) Speech therapy to follow, provide further recommendations following results of VSE, provide continued education regarding aspiration risks and precautions, and provide diagnostic swallow therapy as appropriate
--- NOTE | 2023-05-06 14:24 | CM ---
Addendum entered by Brittanie Leos 05/06/23 16:33:
Patient very concerned that patient go to SNF when discharged. Referral needed to [facility]
Original Note:
Patient admitted to as INP status. Per patient , patient resides with spouse in a [place] with 2 JOSSY. Patient fell and slipped under the dresser last night when they needed to call the ambulance per patient . Per patient , patient
continues to have home O2 from [employer], a CPAP, uses cane and walker, as well as a hospital bed. Patient has had VN in the past, with [facility] and has a history of SNF at [facility]. Patient however, now works at [facility] and
states that she wants patient to come to the SNF when he is medically appropriate. Patient is currently working. CM will continue to follow for discharge planning needs.
Plan; SNF per patient , pending acceptance at [facility]
--- NOTE | 2023-05-06 15:00 | PTOTSP ---
Speech Language Pathology
VIDEOFLUOROSCOPIC SWALLOWING EXAMINATION (VSE) completed. Overall, pt with mild oropharyngeal dysphagia. Decreased oral containment with spillage of bolus into laryngeal vestibule x1 (to level of vocal folds). Infrequent supraglottic penetration
also noted. Only trace pharyngeal residue noted. Of note, pt with frequent coughing in absence of aspiration.
Recommend:
(1) Regular solids/thin liquids
(2) Aspiration precautions: sit upright, single sips only, slow rate
(3) Meds 1 at a time with liquid if able to take with single sip of liquid. Otherwise, whole in puree
(4) OB/GYN DOCTOR to continue to follow, likely briefly.
--- NOTE | 2023-05-06 16:58 | PTCARENOTE ---
Pt arrived to unit at 1645. Pt AAOx3, at bedside. tele monitor placed. pt c/o left ankle pain. LLE elevated with pillow. see worklist
[2023-05-06] MEDS: DEPAKOTE (12 HR RELEASE) 250 MG PO (17:22)
[2023-05-06] MEDS: SYNTHROID 75 MCG PO (17:23)
[2023-05-06] MEDS: PROTONIX 40 MG PO (17:23)
[2023-05-06] MEDS: ZOLOFT 100 MG PO (17:23)
[2023-05-06 20:33] LABS: Urine Albumin Trace (Neg - Trace); Urine Bilirubin Negative (Negative); Urine Character Clear (Clear); Urine Color Yellow; Urine Glucose Negative (Negative); Urine Ketone Negative (Negative); Urine Leukocyte Negative (Negative); Urine Nitrite Negative (Negative); Urine Occult Blood 3+ (Negative); Urine Urobilinogen Negative (Neg - 1+)
[2023-05-06 20:43] LABS: Urine Bacteria Few (Negative); Urine Red Blood Cell 16-20 /HPF (0-2); Urine White Cell 0-2 /HPF (0-5)
[2023-05-06] MEDS: COREG 12.5 MG PO (22:15)
[2023-05-06] MEDS: ENTRESTO 24 MG/26 MG 1 TAB PO (22:16)
[2023-05-06] MEDS: MELATONIN 10 MG PO (22:16)
[2023-05-06] MEDS: TESSALON PERLES 100 MG PO (22:28)
[2023-05-07] VITALS (8 sets, daily range): BP systolic 90–132; BP diastolic 55–77; PULSE 77; O2SAT 96; BMI 33.6
--- NOTE | 2023-05-07 01:35 | PTCARENOTE ---
pt is only able to lay and sit when it comes to orthostatic vitals.
[2023-05-07 06:54] LABS: PT 28.2 Sec (11.4-14.6)
[2023-05-07 07:04] LABS: Hematocrit 33.7 % (39.0-52.0); Hemoglobin 11.4 g/dL (13.0-18.0); Mean Corp Hgb Conc. 33.8 g/dL (33.0-37.0); Mean Corpuscular Hgb 30.1 pg (27.0-31.0); Mean Corpuscular Volume 88.9 fL (80.0-94.0); Mean Platelet Volume 10.5 fL (7.4-10.4); Platelet Count 112 10^3/uL (130-400); Red Blood Cell Count 3.79 10^6/uL (4.70-6.10); Red Cell Dist. Width 14.1 % (11.5-14.5); White Blood Cell Count 6.9 10^3/uL (4.8-10.8)
[2023-05-07 07:09] LABS: ALT (SGPT) 69 U/L (0-50); AST (SGOT) 86 U/L (17-59); Albumin 3.4 g/dl (3.5-5.0); Alkaline Phosphatase 72 U/L (38-126); Blood Urea Nitrogen 26 mg/dl (9-20); Calcium 8.5 mg/dl (8.4-10.2); Carbon Dioxide 30 mmol/L (22-30); Chloride 99 mmol/L (98-107); Estimated Creatinine Clearance 57 ml/min; Glucose 142 mg/dl (70-99); Magnesium 1.8 mg/dl (1.6-2.3); Potassium 4.7 mmol/L (3.5-5.1); Sodium 136 mmol/L (135-145); Total Bilirubin 0.6 mg/dl (0.2-1.3); Total Protein 5.8 g/dl (6.3-8.2); eGFR > 60.00
[2023-05-07] MEDS: ENTRESTO 24 MG/26 MG 1 TAB PO (08:35)
[2023-05-07] MEDS: SYNTHROID 75 MCG PO (08:35)
[2023-05-07] MEDS: ZOLOFT 100 MG PO (08:35)
[2023-05-07] MEDS: DEPAKOTE (12 HR RELEASE) 250 MG PO ×2 (08:35→22:50)
[2023-05-07] MEDS: COREG 12.5 MG PO (08:35)
[2023-05-07] MEDS: PROTONIX 40 MG PO (08:35)
--- NOTE | 2023-05-07 09:36 | VNURNOTE ---
Patient is current with [facility] since 04/02 w/SN/PT, will monitor progress and plan at discharge.
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
[2023-05-07] MEDS: DECADRON 6 MG IV (11:25)
[2023-05-07] MEDS: VEKLURY 250 MG IV (11:25)
[2023-05-07] MEDS: NSS 30 IV (11:26)
[2023-05-07] MEDS: TYLENOL 650 MG PO (13:30)
[2023-05-07] MEDS: ProAIR HFA INHALER 2 PUFF INH ×2 (17:05→19:26)
--- NOTE | 2023-05-07 17:35 | PTCARENOTE ---
This RN taking over care for previous RN. Pt resting comfortably in bed with at bedside. Call sanz within reach. On 1L of O2.
[2023-05-07] MEDS: ENTRESTO 24 MG/26 MG PO ×2 (21:50→22:49)
[2023-05-07] MEDS: COREG PO ×2 (21:50→22:50)
[2023-05-07] MEDS: MELATONIN 10 MG PO (22:50)
[2023-05-07] MEDS: TESSALON PERLES 100 MG PO (23:03)
[2023-05-08] VITALS (7 sets, daily range): BP systolic 106–134; BP diastolic 62–82; PULSE 81; BMI 32.5
[2023-05-08 06:13] LABS: Hematocrit 35.9 % (39.0-52.0); Hemoglobin 11.9 g/dL (13.0-18.0); Mean Corp Hgb Conc. 33.1 g/dL (33.0-37.0); Mean Corpuscular Hgb 29.9 pg (27.0-31.0); Mean Corpuscular Volume 90.2 fL (80.0-94.0); Mean Platelet Volume 10.3 fL (7.4-10.4); Platelet Count 130 10^3/uL (130-400); Red Blood Cell Count 3.98 10^6/uL (4.70-6.10); Red Cell Dist. Width 14.3 % (11.5-14.5); White Blood Cell Count 9.9 10^3/uL (4.8-10.8)
[2023-05-08 06:18] LABS: INR 2.15; PT 24.2 Sec (11.4-14.6)
[2023-05-08 06:28] LABS: ALT (SGPT) 85 U/L (0-50); AST (SGOT) 100 U/L (17-59); Albumin 3.3 g/dl (3.5-5.0); Alkaline Phosphatase 77 U/L (38-126); Blood Urea Nitrogen 34 mg/dl (9-20); Calcium 8.2 mg/dl (8.4-10.2); Carbon Dioxide 26 mmol/L (22-30); Chloride 103 mmol/L (98-107); Direct Bilirubin 0.1 mg/dl (0.0-0.4); Estimated Creatinine Clearance 61 ml/min; Glucose 129 mg/dl (70-99); Potassium 4.4 mmol/L (3.5-5.1); Sodium 136 mmol/L (135-145); Total Bilirubin 0.5 mg/dl (0.2-1.3); Total Protein 5.7 g/dl (6.3-8.2); eGFR > 60.00
[2023-05-08] MEDS: SYNTHROID 75 MCG PO (06:37)
--- NOTE | 2023-05-08 07:48 | PTCARENOTE ---
@0625;While walking into pt's room,SCD machine found on the floor below foot bed board.Pt stated,:I don't care ,I Kicked it over because I want a auto brake mechanic to raise my bed'.Instructed pt beds are not allowed to be raised until staff is in the room
doing care.Pt agitated and stated,'I can't believe a auto brake mechanic is not in here to do this.Scd machine/parts removed off floor and placed on chair,@ 0752;Instructed Krystal Murguia RN verbally on above note.
[2023-05-08] MEDS: PROTONIX 40 MG PO (08:40)
[2023-05-08] MEDS: DEPAKOTE (12 HR RELEASE) 250 MG PO ×2 (08:40→21:00)
[2023-05-08] MEDS: ENTRESTO 24 MG/26 MG 1 TAB PO (08:40)
[2023-05-08] MEDS: ZOLOFT 100 MG PO (08:40)
[2023-05-08] MEDS: COREG 12.5 MG PO (08:42)
[2023-05-08] MEDS: TESSALON PERLES 100 MG PO ×2 (08:45→21:06)
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
[2023-05-08] MEDS: VEKLURY 250 MG IV (13:35)
[2023-05-08] MEDS: DECADRON 6 MG IV (13:36)
[2023-05-08] MEDS: NSS 30 IV (13:37)
--- NOTE | 2023-05-08 14:20 | CM ---
CM spoke with Asmita from admissions at [facility] and they do have a bed for patient when medically appropriate. Referral sent via all scripts. CM will continue to follow for discharge planning needs.
Plan; [facility] pending acceptance.
[2023-05-08] MEDS: COUMADIN 4 MG PO (17:30)
[2023-05-08] MEDS: COREG PO (20:57)
[2023-05-08] MEDS: ENTRESTO 24 MG/26 MG PO (20:58)
[2023-05-08] MEDS: MELATONIN 10 MG PO (21:00)
[2023-05-08] MEDS: TYLENOL 650 MG PO (21:06)
[2023-05-09 03:00] VITALS: BP 129/77
[2023-05-09] MEDS: SYNTHROID 75 MCG PO (06:40)
[2023-05-09 06:59] LABS: INR 1.97; PT 22.3 Sec (11.4-14.6)
[2023-05-09 07:31] LABS: ALT (SGPT) 83 U/L (0-50); AST (SGOT) 73 U/L (17-59); Albumin 3.1 g/dl (3.5-5.0); Alkaline Phosphatase 65 U/L (38-126); Blood Urea Nitrogen 36 mg/dl (9-20); Calcium 8.3 mg/dl (8.4-10.2); Carbon Dioxide 29 mmol/L (22-30); Chloride 102 mmol/L (98-107); Estimated Creatinine Clearance 61 ml/min; Glucose 129 mg/dl (70-99); Potassium 4.4 mmol/L (3.5-5.1); Sodium 136 mmol/L (135-145); Total Bilirubin 0.5 mg/dl (0.2-1.3); Total Protein 5.5 g/dl (6.3-8.2); eGFR > 60.00
[2023-05-09 07:42] VITALS: BP 118/73
[2023-05-09] MEDS: ENTRESTO 24 MG/26 MG 1 TAB PO ×2 (09:16→19:54)
[2023-05-09] MEDS: PROTONIX 40 MG PO (09:16)
[2023-05-09] MEDS: DEPAKOTE (12 HR RELEASE) 250 MG PO ×2 (09:16→19:55)
[2023-05-09] MEDS: ZOLOFT 100 MG PO (09:16)
[2023-05-09] MEDS: COREG 12.5 MG PO ×2 (09:16→19:55)
[2023-05-09 09:28] LABS: Hematocrit 36.6 % (39.0-52.0); Hemoglobin 12.1 g/dL (13.0-18.0); Mean Corp Hgb Conc. 33.1 g/dL (33.0-37.0); Mean Corpuscular Hgb 30.4 pg (27.0-31.0); Mean Platelet Volume 10.7 fL (7.4-10.4); Platelet Count 157 10^3/uL (130-400); Red Blood Cell Count 3.98 10^6/uL (4.70-6.10); Red Cell Dist. Width 14.5 % (11.5-14.5); White Blood Cell Count 7.9 10^3/uL (4.8-10.8)
[2023-05-09] MEDS: TYLENOL 650 MG PO ×2 (10:06→22:03)
[2023-05-09 11:32] VITALS: BP 124/70
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
[2023-05-09] MEDS: DECADRON 6 MG IV (12:45)
[2023-05-09] MEDS: VEKLURY 250 MG IV (12:48)
[2023-05-09] MEDS: NSS 30 IV (12:48)
[2023-05-09 15:59] VITALS: BP 121/78
[2023-05-09] MEDS: COUMADIN 4 MG PO (17:25)
[2023-05-09 19:05] VITALS: BP 110/60; BP 122/79; BP 132/86; PULSE 102; PULSE 80; PULSE 90
[2023-05-09] MEDS: MELATONIN 10 MG PO (21:52)
[2023-05-09] MEDS: TESSALON PERLES 100 MG PO (22:03)
[2023-05-09 23:15] VITALS: BP 103/55
[2023-05-10] VITALS (7 sets, daily range): BP systolic 94–120; BP diastolic 56–70; PULSE 81–99; BMI 32.6
--- NOTE | 2023-05-10 03:23 | PTCARENOTE ---
Pt received from previous shift in bed. AAOx2 (time), forgetful with some confused conversation. Telemetry = afib. Full physical assessment documented. Assisted with HS hygiene, bathing cloths used, and gown changed. Incontinent bowel/bladder,
pericare completed. Pt able to stand with assist x2/RW for orthostatic VS, no tilt. Bed alarm, chair alarm, and Medsitter active for patient safety. Respiratory illness precautions maintained. Medicated w/PRNs for generalized aches and cough
(refer to MAR). Monitoring continues.
[2023-05-10] MEDS: SYNTHROID 75 MCG PO (05:18)
[2023-05-10 07:27] LABS: Hematocrit 36.1 % (39.0-52.0); Hemoglobin 11.8 g/dL (13.0-18.0); Mean Corp Hgb Conc. 32.7 g/dL (33.0-37.0); Mean Corpuscular Hgb 29.6 pg (27.0-31.0); Mean Corpuscular Volume 90.7 fL (80.0-94.0); Mean Platelet Volume 10.3 fL (7.4-10.4); Platelet Count 153 10^3/uL (130-400); Red Blood Cell Count 3.98 10^6/uL (4.70-6.10); Red Cell Dist. Width 14.1 % (11.5-14.5); White Blood Cell Count 7.4 10^3/uL (4.8-10.8)
[2023-05-10 07:41] LABS: PT 26.9 Sec (11.4-14.6)
[2023-05-10 07:56] LABS: ALT (SGPT) 91 U/L (0-50); AST (SGOT) 53 U/L (17-59); Albumin 3.1 g/dl (3.5-5.0); Alkaline Phosphatase 65 U/L (38-126); Blood Urea Nitrogen 41 mg/dl (9-20); Calcium 8.4 mg/dl (8.4-10.2); Carbon Dioxide 31 mmol/L (22-30); Chloride 99 mmol/L (98-107); Estimated Creatinine Clearance 61 ml/min; Glucose 121 mg/dl (70-99); Potassium 4.1 mmol/L (3.5-5.1); Sodium 138 mmol/L (135-145); Total Bilirubin 0.7 mg/dl (0.2-1.3); Total Protein 5.4 g/dl (6.3-8.2); eGFR > 60.00
[2023-05-10] MEDS: ENTRESTO 24 MG/26 MG PO (07:57)
[2023-05-10] MEDS: COREG PO (07:57)
[2023-05-10] MEDS: ZOLOFT 100 MG PO (08:00)
[2023-05-10] MEDS: PROTONIX 40 MG PO (08:00)
[2023-05-10] MEDS: DEPAKOTE (12 HR RELEASE) 250 MG PO ×2 (08:00→20:31)
[2023-05-10] MEDS: TYLENOL 650 MG PO ×2 (10:06→18:07)
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
[2023-05-10] MEDS: DECADRON 6 MG IV (11:42)
[2023-05-10] MEDS: VEKLURY 250 MG IV (11:46)
[2023-05-10] MEDS: NSS 30 IV (11:47)
[2023-05-10] MEDS: COUMADIN 4 MG PO (17:57)
[2023-05-10] MEDS: TESSALON PERLES 100 MG PO (18:07)
[2023-05-10] MEDS: COREG 12.5 MG PO (20:31)
[2023-05-10] MEDS: ENTRESTO 24 MG/26 MG 1 TAB PO (20:31)
[2023-05-10] MEDS: MELATONIN 10 MG PO (21:47)
[2023-05-11] VITALS (7 sets, daily range): BP systolic 95–112; BP diastolic 55–78; PULSE 59–85; O2SAT 95; BMI 32.5
[2023-05-11] MEDS: SYNTHROID 75 MCG PO (05:29)
[2023-05-11 06:30] LABS: Urine Albumin Negative (Neg - Trace); Urine Bilirubin Negative (Negative); Urine Character Clear (Clear); Urine Color Yellow; Urine Glucose Negative (Negative); Urine Ketone Negative (Negative); Urine Leukocyte Negative (Negative); Urine Nitrite Negative (Negative); Urine Occult Blood Negative (Negative); Urine Specific Gravity 1.015 (<1.030); Urine Urobilinogen 2+ (Neg - 1+); Urine pH 6.5 (5.0-9.0)
[2023-05-11 06:45] LABS: Hematocrit 37.9 % (39.0-52.0); Hemoglobin 12.8 g/dL (13.0-18.0); Mean Corp Hgb Conc. 33.8 g/dL (33.0-37.0); Mean Corpuscular Hgb 29.9 pg (27.0-31.0); Mean Corpuscular Volume 88.6 fL (80.0-94.0); Mean Platelet Volume 10.2 fL (7.4-10.4); Platelet Count 157 10^3/uL (130-400); Red Blood Cell Count 4.28 10^6/uL (4.70-6.10); White Blood Cell Count 9.3 10^3/uL (4.8-10.8)
[2023-05-11 06:49] LABS: INR 2.78; PT 29.3 Sec (11.4-14.6)
[2023-05-11 07:04] LABS: ALT (SGPT) 86 U/L (0-50); AST (SGOT) 42 U/L (17-59); Albumin 3.4 g/dl (3.5-5.0); Alkaline Phosphatase 69 U/L (38-126); Blood Urea Nitrogen 40 mg/dl (9-20); Calcium 8.6 mg/dl (8.4-10.2); Carbon Dioxide 30 mmol/L (22-30); Chloride 98 mmol/L (98-107); Estimated Creatinine Clearance 61 ml/min; Glucose 112 mg/dl (70-99); Potassium 4.3 mmol/L (3.5-5.1); Sodium 137 mmol/L (135-145); Total Bilirubin 0.8 mg/dl (0.2-1.3); Total Protein 5.8 g/dl (6.3-8.2); eGFR > 60.00
[2023-05-11] MEDS: ENTRESTO 24 MG/26 MG 1 TAB PO (08:51)
[2023-05-11] MEDS: ZOLOFT 100 MG PO (08:51)
[2023-05-11] MEDS: PROTONIX 40 MG PO (08:51)
[2023-05-11] MEDS: DEPAKOTE (12 HR RELEASE) 250 MG PO ×2 (08:51→20:52)
[2023-05-11] MEDS: COREG 12.5 MG PO (08:51)
[2023-05-11] MEDS: DECADRON 6 MG IV (11:29)
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
--- NOTE | 2023-05-11 12:24 | CM ---
CM reviewed pt with Dr Hall- remains medically ready for dc
COVID bed available at [facility] tomorrow per Asmita/admissions
Update to spouse over phone- IMM verbally completed
Copy emailed to [email or web address]
Medical necessity and transport form on chart
Requested reserves clerk arrange for transport with 1300 pickup per attending request
Discharge Disposition- tomorrow to [facility] via BLS
Phone- [phone] Fax- [phone]
[2023-05-11] MEDS: TYLENOL 650 MG PO (14:08)
[2023-05-11] MEDS: COUMADIN 4 MG PO (17:23)
[2023-05-11] MEDS: TESSALON PERLES 100 MG PO (20:52)
[2023-05-11] MEDS: MELATONIN 10 MG PO (20:52)
[2023-05-11] MEDS: COREG PO ×2 (20:52→21:27)
[2023-05-11] MEDS: ENTRESTO 24 MG/26 MG PO ×2 (20:52→21:27)
[2023-05-12] MEDS: SYNTHROID 75 MCG PO (05:29)
[2023-05-12 05:46] VITALS: BMI 32.5
[2023-05-12 06:00] VITALS: BMI 32.5
[2023-05-12 06:44] LABS: INR 3.04; PT 31.5 Sec (11.4-14.6)
[2023-05-12 07:00] VITALS: BP 102/69
[2023-05-12] MEDS: DEPAKOTE (12 HR RELEASE) 250 MG PO (09:02)
[2023-05-12] MEDS: PROTONIX 40 MG PO (09:02)
[2023-05-12] MEDS: COREG PO (09:06)
[2023-05-12] MEDS: ENTRESTO 24 MG/26 MG PO (09:07)
[2023-05-12] MEDS: ZOLOFT 100 MG PO (09:07)
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
[2023-05-12 13:17] VITALS: BP 118/76
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
== END 2023-05-12 13:21 | DRG 177 ==
LOC: 3 WEST ACU 06:41
PROVIDERS: ADMITTING PHYSICIAN Hospitalist; ATTENDING PHYSICIAN Internal Medicine; EMERGENCY PHYSICIAN Student in an Organized Health Care Education/Training Program; FAMILY PHYSICIAN Internal Medicine
DX: U07.1 COVID-19 (principal); G93.41 Metabolic encephalopathy; I50.22 Chronic systolic (congestive) heart failure; I48.21 Permanent atrial fibrillation; I11.0 Hypertensive heart disease with heart failure; Z95.810 Presence of automatic (implantable) cardiac defibrillator; F32.A Depression, unspecified; Z87.820 Personal history of traumatic brain injury; E03.9 Hypothyroidism, unspecified; Z79.01 Long term (current) use of anticoagulants; R29.6 Repeated falls; Z66 Do not resuscitate
CPT/HCPCS: 70450; 71046; 73564; 73610; 74230; 80048; 80053; 81003; 81015; 82248; 83735; 84443; 85025; 85027; 85610; 86140; 87811; 92610; 92611; 94640; 97116; 97162; 97167; 97530; 97535; 99284; J0248

== ENCOUNTER 2023-09-09 15:23 | Inpatient (IN) | payer MEDICARE, OTHER, SELFPAY ==
[2023-09-09] VITALS (10 sets, daily range): BP systolic 91–113; BP diastolic 47–75; BMI 34.4
--- NOTE | 2023-09-09 09:13 | ED.GENMED ---
History of Present Illness
<Morelia Gonzalez PA-C - Last Filed: 09/09/23 15:33>
General
Chief Complaint: Cough
Source: patient
Exam Limitations: none
Time Seen by Provider: 09/09/23 09:11
Nursing documentation reviewed up to this point in time: agreed with
History of Present Illness
History of Present Illness:
Patient is an 83-year-old male with history TBI, metastatic lung CA recently finished radiation therapy, atrial fibrillation on Coumadin, CHF, hypertension, hyperlipidemia presenting to the emergency department for evaluation of cough. Patient's
states he initially started with symptoms approximately 2 days ago. She endorses a productive cough with green sputum. Cough is worse at night and patient was unable to sleep well last night. No fevers, chills, chest pain, shortness of
breath. No pain or swelling in lower extremities.
Patient follows with Augusto Dubose for metastatic lung cancer and recently finished radiation therapy about 2 weeks ago.
Of note�patient's is currently getting over a bout of bronchitis for which she was prescribed Augmentin. She did give patient 2 dose Augmentin yesterday to see if that helped.
Past History
<Morelia Gonzalez PA-C - Last Filed: 09/09/23 15:33>
Past History
ED Past Medical History: Arrthythmia (atrial fibrillation), Cancer (Lung, prostate, Skin CA), CHF, COPD, GERD, HTN, Hypercholesterolemia, Hypothyroidism, Psychiatric (Anxiety, Depression) and Other (TBI, Sleep apnea, CPCP, Renal calculus, Detached
retina, )
ED Past Surgical History: Cardiac (Pacemaker/Def for VF, Ablation X 2, ), Orthopedic (Plate in cervical spine) and Other (Prostatectomy, resection of a lung mass, surgery for a left detached retina,. AAA, Hernia, )
Social History
Tobacco: Former smoker
Alcohol: None
Drug: None
Personal:
Living: with family
Employment: Employed
Family History
Family History: Other (Mother with cancer of the breast followed with COPD)
Review of Systems
<Morelia Gonzalez PA-C - Last Filed: 09/09/23 15:33>
Review of Systems
Allergies reviewed?: Yes
All Other Systems: ROS reviewed and negative except as documented in HPI and ROS
Phy Exam
<Morelia Gonzalez PA-C - Last Filed: 09/09/23 15:33>
Physical Exam
Physical Exam:
Vitals: Patient's vital signs are stable. Afebrile.
General: Patient is chronically ill appearing, no acute distress. Nontoxic apperaing
Skin: Warm and dry, no rashes or lesions
Head: Normocephalic, atraumatic
Eyes: Sclera nonicteric. EOMs intact. No nystagmus.
Throat: Protecting airway
Neck: Normal ROM, no cervical spine tenderness, no meningismus. Trachea midline.
Cardiac: Regular rate and rhythm, no murmurs.
Pulm: Mild respiratory distress. No apparent respiratory distress. Rhonchi bilaterally with scattered expiratory wheeze. Oxygen saturation 90 on RA.
Abdomen: Abdomen soft. No abdominal tenderness.
Extremities: No evidence of cyanosis or edema. Great distal pulses.
Neuro: AAOx3. Grossly intact.
Psychiatric: Normal affect.
Course
<Morelia Gonzalez PA-C - Last Filed: 09/09/23 15:33>
Orders/Labs/Results
Orders:
Orders
09/09/23 09:33
CR Chest - 2 Views Urgent
Comment: hx metastatic lung CA
Reason For Exam: cough
09/09/23 09:36
Dexamethasone Sod Phosphate [Decadron] 6 mg IV NOW STA
Ipratropium/Albuterol Sulfate [Duoneb] 3 ml INH R NOW STA
09/09/23 09:45
Electrocardiogram (*1) Urgent
Reason for Study: Shortness of Breath
EKG- Treatment ONCE
09/09/23 10:01
COVID-19 Antigen Urgent
Source: Nasal Swab
Complete Blood Count/With Diff Urgent
Comprehensive Metabolic Panel Urgent
Lactic Acid Q4H
Comment: ON ICE, CANCEL 2ND ORDER IF FIRST LACTIC ACID LEVEL <2
NT-proBNP Urgent
Prothrombin Time Urgent
Troponin I Urgent
Blood Culture Urgent
LALI Source: Blood/Venous
Specimen Description:
09/09/23 10:02
Blood Culture Urgent
LALI Source: Blood/Venous
Specimen Description:
09/09/23 11:17
Acetaminophen [Tylenol] 650 mg PO NOW STA
09/09/23 14:47
Admit/Transfer Patient As Directed
Co-Sign Provider:
Level of Care: Inpatient admission
Assign to:: Medical/Surgical
Physician / Group: [facility]
Diagnosis: Acute bronchitis
Reason for Hospitalization: Above
Expected length of stay greater than two midnights?: Yes
ELOS- Estimated Length of Stay in days: 2
I certify the patient meets the requirements for IP care: Yes
PRN Pain Medication Management As Directed
May give lesser potent ordered pain med per pt: Yes
preference::
Protocol:: Medication orders for pain may be administered in a
manner that supports deferring to patient preference
when the pt is:
-Requesting an ordered lesser potent pain medication.
Least to most potent pain medications are defined as:
acetaminophen < NSAID < tramadol < opioids (morphine,
oxycodone, hydromorphone).
- Requesting a lesser dose of the same medication IF
ORDERED.
- Requesting a less intrusive route of administration
if both routes are prescribed by the provider (PO <
IV).
09/09/23 14:49
Code Status As Directed
Resuscitation Status: Do not resuscitate
Reached after discussion with pt or family/Healthcare POA: Yes
09/09/23 14:53
DNR Bracelet Application ONCE
Abnormal Lab Results
09/09/23
10:01
RBC 4.02 L 10^6/uL
(4.70-6.10)
Hgb 11.6 L g/dL
(13.0-18.0)
Hct 35.4 L %
(39.0-52.0)
MCHC 32.8 L g/dL
(33.0-37.0)
Plt Count 128 L 10^3/uL
(130-400)
Absolute Lymphs (auto) 0.6 L 10^3/uL
(1.2-3.4)
Neutrophils % 79.9 H %
(42.2-75.2)
Lymphocytes % 10.2 L %
(20.5-51.1)
PT 30.1 H Sec
(11.4-14.6)
Glucose 119 H mg/dl
(70-99)
Total Protein 6.2 L g/dl
(6.3-8.2)
09/09/23 10:01
09/09/23 10:01
Vital Signs
Initial and Last Documented VS:
Initial Vital Signs
Temp Pulse Resp BP Pulse Ox
98.7 F 94 18 106/72 93
09/09/23 09:07 09/09/23 09:07 09/09/23 09:07 09/09/23 09:07 09/09/23 09:07
Last Documented Vital Signs
Temp Pulse Resp BP Pulse Ox
98.5 F 86 20 104/74 95
09/09/23 10:33 09/09/23 14:00 09/09/23 14:00 09/09/23 14:00 09/09/23 14:00
<Carlos Deras MD - Last Filed: 09/09/23 12:09>
Orders/Labs/Results
Orders:
Orders
09/09/23 09:33
CR Chest - 2 Views Urgent
Comment: hx metastatic lung CA
Reason For Exam: cough
09/09/23 09:36
Dexamethasone Sod Phosphate [Decadron] 6 mg IV NOW STA
Ipratropium/Albuterol Sulfate [Duoneb] 3 ml INH R NOW STA
09/09/23 09:45
Electrocardiogram (*1) Urgent
Reason for Study: Shortness of Breath
EKG- Treatment ONCE
09/09/23 10:01
COVID-19 Antigen Urgent
Source: Nasal Swab
Complete Blood Count/With Diff Urgent
Comprehensive Metabolic Panel Urgent
Lactic Acid Q4H
Comment: ON ICE, CANCEL 2ND ORDER IF FIRST LACTIC ACID LEVEL <2
NT-proBNP Urgent
Prothrombin Time Urgent
Troponin I Urgent
Blood Culture Urgent
LALI Source: Blood/Venous
Specimen Description:
09/09/23 10:02
Blood Culture Urgent
LALI Source: Blood/Venous
Specimen Description:
09/09/23 11:17
Acetaminophen [Tylenol] 650 mg PO NOW STA
09/09/23 14:47
Admit/Transfer Patient As Directed
Co-Sign Provider:
Level of Care: Inpatient admission
Assign to:: Medical/Surgical
Physician / Group: [facility]
Diagnosis: Acute bronchitis
Reason for Hospitalization: Above
Expected length of stay greater than two midnights?: Yes
ELOS- Estimated Length of Stay in days: 2
I certify the patient meets the requirements for IP care: Yes
PRN Pain Medication Management As Directed
May give lesser potent ordered pain med per pt: Yes
preference::
Protocol:: Medication orders for pain may be administered in a
manner that supports deferring to patient preference
when the pt is:
-Requesting an ordered lesser potent pain medication.
Least to most potent pain medications are defined as:
acetaminophen < NSAID < tramadol < opioids (morphine,
oxycodone, hydromorphone).
- Requesting a lesser dose of the same medication IF
ORDERED.
- Requesting a less intrusive route of administration
if both routes are prescribed by the provider (PO <
IV).
09/09/23 14:49
Code Status As Directed
Resuscitation Status: Do not resuscitate
Reached after discussion with pt or family/Healthcare POA: Yes
09/09/23 14:53
DNR Bracelet Application ONCE
Abnormal Lab Results
09/09/23
10:01
RBC 4.02 L 10^6/uL
(4.70-6.10)
Hgb 11.6 L g/dL
(13.0-18.0)
Hct 35.4 L %
(39.0-52.0)
MCHC 32.8 L g/dL
(33.0-37.0)
Plt Count 128 L 10^3/uL
(130-400)
Absolute Lymphs (auto) 0.6 L 10^3/uL
(1.2-3.4)
Neutrophils % 79.9 H %
(42.2-75.2)
Lymphocytes % 10.2 L %
(20.5-51.1)
PT 30.1 H Sec
(11.4-14.6)
Glucose 119 H mg/dl
(70-99)
Total Protein 6.2 L g/dl
(6.3-8.2)
09/09/23 10:01
09/09/23 10:01
Vital Signs
Initial and Last Documented VS:
Initial Vital Signs
Temp Pulse Resp BP Pulse Ox
98.7 F 94 18 106/72 93
09/09/23 09:07 09/09/23 09:07 09/09/23 09:07 09/09/23 09:07 09/09/23 09:07
Last Documented Vital Signs
Temp Pulse Resp BP Pulse Ox
98.5 F 86 20 104/74 95
09/09/23 10:33 09/09/23 14:00 09/09/23 14:00 09/09/23 14:00 09/09/23 14:00
<Morelia Gonzalez PA-C - Last Filed: 09/09/23 15:33>
MDM/Problems Addressed
Differential Diagnosis Includes:
Not limited to: viral bronchitis, radiation pneumonitis, COPD exacerbation, pneumonia, metastatic disease, CHF exacerbation
MDM/Problems Addressed:
Patient is an 83-year-old male with history as documented presenting with worsening productive cough over the past 2 days. No associated fever, chills, headache. with similar symptoms about a week ago currently being treated with Augmentin.
Patient's vital signs are stable. Oxygen saturation around 90 on room air. Physical exam as above. Patient chronically ill-appearing, although nontoxic. Heart irregular rate, regular rhythm. Patient appears to be in mild respiratory distress
with rhonchi and scattered expiratory wheeze bilaterally. No clinical evidence of DVT on exam. Patient anticoagulated with Coumadin. Abdomen soft and nontender. No focal neurologic deficits noted, although patient does have TBI. Suspect likely
viral bronchitis versus radiation pneumonitis. Will check basic labs, INR, BMP, Trope. Will check COVID. Will check chest x-ray. EKG shows rate controlled atrial fibrillation without any acute ischemic changes. Will give DuoNeb and 6 mg IV
Decadron.
Into reassess patient�she does report some subjective improvement in symptoms following DuoNeb. On exam scattered expiratory wheezing still present. Labs noted. Mild anemia with hemoglobin 11.6 which appears stable. INR in therapeutic range at
2.82. Otherwise no clinically significant abnormalities. proBNP is elevated to 3110, although patient does not appear clinically fluid overloaded. Will avoid diuretics at this time. COVID is negative. Chest x-ray shows findings consistent with
radiation pneumonitis without any evidence of focal pneumonia.
Patient's oxygen has been wavering between 88 and 92 on room air and was placed on 2 L nasal cannula. Suspect likely mild COPD exacerbated by viral bronchitis and associated radiation pneumonitis. Given immunocompromised state due to metastatic
lung cancer concern for worsening infection. Given patient's mild hypoxia and oxygen requirements�will admit for further evaluation/management. Did discuss with patient's who is most comfortable with hospital admission to monitor patient more
closely.
Chronic conditions affecting care:
Metastatic lung CA, CHF, Atrial fibrillation, COPD
Acute Exacerbation and/or Progression of Chronic Illness:
Acute bronchitis, radiation pneumonitis
<Morelia Gonzalez PA-C - Last Filed: 09/09/23 15:33>
*Radiology
Radiology exam reviewed: preliminary read by ED provider and radiology read reviewed
*Pulse Oximetry
Patient hypoxic: yes
Comment: Placed on 2 L nasal cannula
*EKG
Interpreted by ED Provider?: Yes
EKG Intrepretation Date: 09/09/23
Interpretation: abnormal
Comparison EKG: changes noted
Heart Rate: 81
Rate: normal
Rhythm: a-fib
[place]: left axis deviation
Ischemia: non-specific ST changes
*Director Of Respiratory Therapy Interpretation
Rate: normal
Interpretation: normal
Heart Rate: 78
Rhythm: a-fib
*Critical Care Note
Total Time (30-74mins, 75-104mins- exclusive of procedures): Not Applicable
<Morelia Gonzalez PA-C - Last Filed: 09/09/23 15:33>
Patient Management
Discussion with other providers: Hospitalist
Escalation/DeEscalation of care consider admission/obs:
Admit for nebulizer/IV steroids and continued management
ED Attending Note
<Morelia Gonzalez PA-C - Last Filed: 09/09/23 15:33>
-
Portions of this chart may have been created with voice recognition software.� Occasional wrong word or��sound alike� substitutions may have occurred due to the inherent limitations of voice recognition software.
<Carlos Deras MD - Last Filed: 09/09/23 12:09>
ED Attending Note
Patient seen and examined by attending physician: Yes
ED Attending Note:
Patient with history of lung cancer, status post radiation therapy 3 months ago, presents to ED secondary to worsening cough over the past 1 week. Denies fever or chills. Denies nausea or vomiting. Denies dizziness. Patient reports decreased
appetite. Denies diarrhea. Patient states that his , who works at rehab, may have gotten him sick, as she also has been under the weather. Denies leg pain or swelling. Denies back pain. Denies recent travel or surgery. Patient does have
history of chronic atrial fibrillation and is taking Coumadin.
Physical Exam
General: mild respiratory distress, not acutely ill. afebrile
Head: nc/at. eomi
Neck: supple. no meningeal signs
Heart: s1/s2 regular rate and rhythm, no murmur. equal radial pulses.
Lungs: mild respiratory distress. rhonchi bilaterally with expiratory wheezing
Abdomen: normal bowel sounds. not tender.
Neuro: alert and oriented. no focal neurological deficits
Skin: no rash
Psychiatric: well kept. interactive and cooperative
Extremities: no edema. no calf tenderness.
Resting pulse ox is between 88% and 92% on room air. Supplemental oxygen provided with improvement. Patient with persistent wheezing with mild respiratory distress despite treatment. History and exam consistent with likely COPD exacerbation,
likely secondary to radiation induced pneumonitis versus bronchitis. Patient will be admitted for continued nebulizer treatment along with IV steroids. Despite elevation in BNP level, patient clinically does not appear to be fluid overloaded. As
such, will withhold IV diuresis.
Discharge Plan
Departure
Patient Disposition: Admit
Date of Disposition: 09/09/23
Time of Disposition: 11:41
Presentation/result/management discussed w/ accepting MD/DO: Hospitalist
Discharge Problem:
Acute bronchitis, Hypoxia, Radiation pneumonitis, COPD exacerbation
Prescriptions:
No Action
sertraline 100 MG tablet
100 mg PO DAILY
omeprazole 40 MG capsule,delayed release(DR/EC)
40 mg PO QPM
atorvastatin 80 mg Tablet
80 mg PO QPM
divalproex 250 mg Tablet,Delayed Release (Dr/Ec)
250 mg PO BID
cholecalciferol (vitamin D3) 25 mcg (1,000 unit) Tablet
25 mcg PO DAILY
Entresto 24-26 mg Tablet
1 tab PO BID
melatonin 5 mg Tablet
10 mg PO HS
magnesium 250 mg Tablet
250 mg PO Q48H@1800
carvedilol 6.25 mg Tablet
6.25 mg PO BID Qty: 0 0RF
Theragen Tablet
1 tab PO DAILY
fexofenadine [Dai Allergy] 180 mg Tablet
180 mg PO QPM
warfarin 4 mg Tablet
6 mg PO SUMOTUWEFR
warfarin 4 mg Tablet
4 mg PO THSA
levothyroxine 88 mcg Tablet
88 mcg PO DAILY
alprazolam 0.25 mg Tablet
0.25 mg PO HS
Patient Comments:
09/09/23: Not taken on same nights as oxycodone
betamethasone valerate 0.12 % Foam
1 applic TOPICAL BIDPRN PRN (Reason: scalp itching)
oxycodone 5 mg Tablet
5 mg PO HSPRN PRN (Reason: severe pain)
buprenorphine 15 mcg/hour Patch Weekly
1 patch TRANSDERMAL WE
Referrals:
Sameer Craft MD [Family Provider] -
Discharge Date and Time
Print Language: SETSWANA
[2023-09-09] MEDS: DECADRON 6 MG IV (09:57)
[2023-09-09 10:18] LABS: % Basophils 0.3 % (0-2); % Eosinophils 1.7 % (0-6); % Immature Granulocytes 0.5 % (0-0.5); % Lymphocytes 10.2 % (20.5-51.1); % Monocytes 7.4 % (1.7-9.3); % Neutrophils 79.9 % (42.2-75.2); Absolute Eosinophils 0.1 10^3/uL (0-0.7); Absolute Lymphocytes 0.6 10^3/uL (1.2-3.4); Absolute Monocytes 0.4 10^3/uL (0.1-0.6); Absolute Neutrophils 4.8 10^3/uL (1.4-6.5); Hematocrit 35.4 % (39.0-52.0); Hemoglobin 11.6 g/dL (13.0-18.0); Mean Corp Hgb Conc. 32.8 g/dL (33.0-37.0); Mean Corpuscular Hgb 28.9 pg (27.0-31.0); Mean Corpuscular Volume 88.1 fL (80.0-94.0); Mean Platelet Volume 9.9 fL (7.4-10.4); Nucleated Red Blood Cells % 0 % (-); Platelet Count 128 10^3/uL (130-400); Red Blood Cell Count 4.02 10^6/uL (4.70-6.10)
[2023-09-09] MEDS: DUONEB 3 ML INH (10:19)
[2023-09-09 10:24] LABS: Lactic Acid 1.6 mmol/L (0.7-2.0)
[2023-09-09 10:34] LABS: ALT (SGPT) 13 U/L (0-50); AST (SGOT) 23 U/L (17-59); Albumin 3.8 g/dl (3.5-5.0); Alkaline Phosphatase 76 U/L (38-126); Blood Urea Nitrogen 18 mg/dl (9-20); COVID-19 Antigen Negative (Negative); Calcium 8.8 mg/dl (8.4-10.2); Carbon Dioxide 29 mmol/L (22-30); Chloride 101 mmol/L (98-107); Estimated Creatinine Clearance 61 ml/min; Glucose 119 mg/dl (70-99); Potassium 4.4 mmol/L (3.5-5.1); Sodium 139 mmol/L (135-145); Total Bilirubin 0.6 mg/dl (0.2-1.3); Total Protein 6.2 g/dl (6.3-8.2); eGFR > 60.00
[2023-09-09 10:37] LABS: INR 2.82; PT 30.1 Sec (11.4-14.6)
[2023-09-09 10:38] LABS: NT-proBNP 3110 pg/ml; Troponin I < 0.012 ng/ml
[2023-09-09] MEDS: TYLENOL 650 MG PO (11:24)
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
--- NOTE | 2023-09-09 18:04 | PTCARENOTE ---
pt brought up from the ED to 2137. pt on 2L of O2, pt aaox3 but is repetitive due to hx of TBI. pt has a hat at bedside that he calls his 'hard hat' due to frequent falls at home and the patient takes warfarin. pt lives with his and all
patients children help with his care
[2023-09-09] MEDS: CLARITIN 10 MG PO (18:35)
[2023-09-09] MEDS: LIPITOR 80 MG PO (18:35)
[2023-09-09] MEDS: PROTONIX 40 MG PO (18:35)
[2023-09-09] MEDS: ROCEPHIN 1000 MG IV (18:35)
[2023-09-09] MEDS: COUMADIN 6 MG PO (18:38)
[2023-09-09] MEDS: STERILE WATER FOR INJECTION 10 ML IV (18:44)
[2023-09-09] MEDS: ENTRESTO 24 MG/26 MG 1 TAB PO (20:40)
[2023-09-09] MEDS: VIBRAMYCIN 100 MG PO (20:40)
[2023-09-09] MEDS: COREG 6.25 MG PO (20:40)
[2023-09-09] MEDS: MUCINEX 600 MG PO (20:40)
[2023-09-09] MEDS: DEPAKOTE (12 HR RELEASE) 250 MG PO (20:40)
[2023-09-09] MEDS: ROXICODONE 5 MG PO (22:10)
[2023-09-09] MEDS: XANAX PO (22:11)
[2023-09-09] MEDS: MELATONIN 10 MG PO (22:11)
[2023-09-10 06:00] VITALS: BMI 33.7
[2023-09-10] MEDS: SYNTHROID 88 MCG PO (06:07)
[2023-09-10 07:12] LABS: % Eosinophils 0.1 % (0-6); % Immature Granulocytes 0.4 % (0-0.5); % Lymphocytes 4.8 % (20.5-51.1); % Monocytes 7.4 % (1.7-9.3); % Neutrophils 87.3 % (42.2-75.2); Absolute Lymphocytes 0.3 10^3/uL (1.2-3.4); Absolute Monocytes 0.5 10^3/uL (0.1-0.6); Absolute Neutrophils 6.1 10^3/uL (1.4-6.5); Hematocrit 33.2 % (39.0-52.0); Hemoglobin 11.1 g/dL (13.0-18.0); Mean Corp Hgb Conc. 33.4 g/dL (33.0-37.0); Mean Corpuscular Hgb 29.1 pg (27.0-31.0); Mean Corpuscular Volume 86.9 fL (80.0-94.0); Nucleated Red Blood Cells % 0 % (-); Platelet Count 136 10^3/uL (130-400); Red Blood Cell Count 3.82 10^6/uL (4.70-6.10); Red Cell Dist. Width 13.7 % (11.5-14.5); White Blood Cell Count 6.9 10^3/uL (4.8-10.8)
[2023-09-10 07:20] LABS: INR 3.42
[2023-09-10 07:32] LABS: Blood Urea Nitrogen 23 mg/dl (9-20); Calcium 8.8 mg/dl (8.4-10.2); Carbon Dioxide 29 mmol/L (22-30); Chloride 100 mmol/L (98-107); Estimated Creatinine Clearance 60 ml/min; Glucose 110 mg/dl (70-99); Potassium 5.1 mmol/L (3.5-5.1); Sodium 138 mmol/L (135-145); eGFR > 60.00
[2023-09-10 07:35] VITALS: BP 107/60
[2023-09-10] MEDS: TYLENOL 1000 MG PO (07:37)
[2023-09-10] MEDS: MUCINEX 600 MG PO ×2 (09:36→20:56)
[2023-09-10] MEDS: VIBRAMYCIN 100 MG PO ×2 (09:36→20:57)
[2023-09-10] MEDS: VITAMIN D3 (cholecalciferol) 25 MCG PO (09:36)
[2023-09-10] MEDS: THERAGRAN 1 TABLET PO (09:37)
[2023-09-10] MEDS: DEPAKOTE (12 HR RELEASE) 250 MG PO ×2 (09:37→20:57)
[2023-09-10] MEDS: DESENEX/MITRAZOL/ZEASORB 1 APPLIC TOPICAL ×2 (09:37→20:57)
[2023-09-10] MEDS: COREG 6.25 MG PO ×2 (09:37→20:56)
[2023-09-10] MEDS: ZOLOFT 100 MG PO (09:37)
[2023-09-10] MEDS: ENTRESTO 24 MG/26 MG 1 TAB PO ×2 (09:37→20:57)
[2023-09-10 10:30] VITALS: BP 97/59; PULSE 80; O2SAT 97
--- NOTE | 2023-09-10 11:05 | PTOTSP ---
Speech Language Pathology
Pt seen for clinical bedside swallow evaluation. Known to POLICE MANAGER at with previous VSE completed 05/06/23. Recommendations were for regular solids/thin liquids. Infrequent penetration with thin liquids with trace pharyngeal residue. Decreased oral
containment, leading to bolus to vocal folds prior to swallow initiation x1. Cough in absence of aspiration.
This date, P.O. trials of regular solids and mixed consistencies trialed. Slightly prolonged mastication noted, but this was functional given additional time. No overt signs of aspiration. Pt frequently talking with mouth full. stated she
reminds him at home not to talk while eating. Reviewed results/recommendations from VSE in April and recommendation for single sips only. Pt able to reiterate this to POLICE MANAGER at end of session.
Recommend:
(1) Continue regular solids/thin liquids
(2) Aspiration precautions: sit upright, slow rate, single sips only, no talking while eating
(3) Meds as tolerated
(4) POLICE MANAGER to sign off. Please reconsult as indicated.
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
[2023-09-10 15:10] VITALS: BP 111/61
--- NOTE | 2023-09-10 16:15 | CM ---
Reviewed the chart notes and spoke with the patient at the bedside. Consult received for healthcare directives. Copy provided to the patient. Patient resides with his spouse in a one story home with a ramp to enter. Patient has a hospital bed,
w/c, cane, CPAP, and O2 through [facility]. The patient has had [facility] in the past and been to [facility]. The patient confirmed his pharmacy of choice is the [facility] [address] [facility]. CM continues to be available to patient/family
and is monitoring medical plan for needs at discharge.
Plan: Discharge plans will depend on the patient's progress.
[2023-09-10] MEDS: MAG-TAB SR 84 MG PO (17:48)
[2023-09-10] MEDS: CLARITIN 10 MG PO (17:48)
[2023-09-10] MEDS: STERILE WATER FOR INJECTION 10 ML IV (17:48)
[2023-09-10] MEDS: ROCEPHIN 1000 MG IV (17:48)
[2023-09-10] MEDS: LIPITOR 80 MG PO (17:48)
[2023-09-10] MEDS: PROTONIX 40 MG PO (17:48)
[2023-09-10] MEDS: ROXICODONE 5 MG PO (20:58)
[2023-09-10 21:00] VITALS: BP 124/76
[2023-09-10] MEDS: MELATONIN 10 MG PO (22:10)
[2023-09-10] MEDS: XANAX 0.25 MG PO (22:10)
[2023-09-10 23:26] VITALS: BP 98/64
[2023-09-11 05:45] VITALS: BMI 33.4
[2023-09-11] MEDS: SYNTHROID 88 MCG PO (05:53)
[2023-09-11 07:20] VITALS: BP 110/69
[2023-09-11 08:12] LABS: INR 3.38; PT 34.2 Sec (11.4-14.6)
[2023-09-11] MEDS: DEPAKOTE (12 HR RELEASE) 250 MG PO (09:14)
[2023-09-11] MEDS: DESENEX/MITRAZOL/ZEASORB 1 APPLIC TOPICAL (09:14)
[2023-09-11] MEDS: COREG 6.25 MG PO (09:14)
[2023-09-11] MEDS: VITAMIN D3 (cholecalciferol) 25 MCG PO (09:15)
[2023-09-11] MEDS: THERAGRAN 1 TABLET PO (09:15)
[2023-09-11] MEDS: VIBRAMYCIN 100 MG PO (09:15)
[2023-09-11] MEDS: MUCINEX 600 MG PO (09:15)
[2023-09-11] MEDS: ENTRESTO 24 MG/26 MG 1 TAB PO (09:15)
[2023-09-11] MEDS: ZOLOFT 100 MG PO (09:19)
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
--- NOTE | 2023-09-11 11:05 | W.DS.TRANS ---
DC Summary - Pace Analyst
-
Discharge Instructions:
Discharge Diagnosis/Procedures Acute bronchitis
Diet Regular
Activity As tolerated
Driving Restrictions As prior to admission
Blood Work INR 09/12/23
Other Services VN,PT
Instructions:
Stand-Alone Forms:
Changes to Home Medications: Yes
Discharge Medications:
DC Medications w/original date entered in [facility]
omeprazole 40 mg capsule,delayed release 40 mg PO QPM Gastrointestinal issue 08/30/20
sertraline 100 mg tablet 100 mg PO DAILY Depression 08/30/20
atorvastatin 80 mg tablet 80 mg PO QPM High cholesterol 01/02/22
divalproex 250 mg tablet,delayed release 250 mg PO BID Neurological Condition 01/02/22
cholecalciferol (vitamin D3) 25 mcg (1,000 unit) tablet 25 mcg PO DAILY Heart Failure 05/06/23
melatonin 5 mg tablet 10 mg PO HS Sleep 05/06/23
sacubitril 24 mg-valsartan 26 mg tablet (Entresto) 1 tab PO BID Heart Failure 05/06/23
magnesium 250 mg tablet 250 mg PO Q48H@1800 Supplement 05/07/23
carvedilol 6.25 mg tablet 6.25 mg PO BID Heart Disease/Condition #0 tabs 05/12/23
alprazolam 0.25 mg tablet 0.25 mg PO HS Sleep 09/09/23
betamethasone valerate 0.12 % topical foam 1 applic topical BIDPRN PRN scalp itching 09/09/23
buprenorphine 15 mcg/hour weekly transdermal patch 1 patch transdermal WE Pain 09/09/23
fexofenadine 180 mg tablet (Dai Allergy) 180 mg PO QPM Allergies 09/09/23
levothyroxine 88 mcg tablet 88 mcg PO DAILY Thyroid 09/09/23
oxycodone 5 mg tablet 5 mg PO HSPRN PRN severe pain 09/09/23
therapeutic multivitamin 1 tab PO DAILY Supplement 09/09/23
warfarin 4 mg tablet 4 mg PO THSA Blood Clot Prevention/Tx 09/09/23
warfarin 4 mg tablet 6 mg PO SUMOTUWEFR Blood Clot Prevention/Tx 09/09/23
albuterol sulfate 90 mcg/actuation aerosol inhaler 2 puff inhalation Q6H PRN shortness of breath or wheezing #6.7 grams 09/11/23
cefuroxime axetil 500 mg tablet 500 mg PO BID #6 tabs 09/11/23
doxycycline hyclate 100 mg capsule 100 mg PO Q12 #6 caps 09/11/23
guaifenesin 600 mg tablet, extended release 12 hr 600 mg PO Q12 #14 tabs 09/11/23
Home Medication Changes
New medications - Mucinex, doxycycline, Cefuroxime, albuterol inh
Hold medications - Coumadin till INR<3.0
Pending Results: No
[2023-09-11 11:09] VITALS: BP 100/58; PULSE 84; O2SAT 97
--- NOTE | 2023-09-11 14:27 | CM ---
Reviewed the chart notes and spoke with the patient at the bedside. IMM placed on chart. CM continues to be available to patient/family and is monitoring medical plan for needs at discharge.
Plan: Discharge to home when medically stable.
[2023-09-11 15:11] VITALS: BP 111/79
[2023-09-11] MEDS: LIPITOR 80 MG PO (17:22)
[2023-09-11] MEDS: PROTONIX 40 MG PO (17:22)
[2023-09-11] MEDS: CLARITIN 10 MG PO (17:22)
[2023-09-11] MEDS: STERILE WATER FOR INJECTION 10 ML IV (17:22)
[2023-09-11] MEDS: ROCEPHIN 1000 MG IV (17:23)
--- NOTE | 2023-09-12 13:12 | W.PN.UPDATE ---
Update Note
Progress Note Update
Received Roe text from nursing restaurant shift supervisor to call [facility] pharmacy regarding medication interactions (antibiotics) and warfarin. Spoke with the pharmacist and I spoke with the patient's , Huma Beaulieu. The instructions that I gave both
of them (pharmacist and ) were not to take any warfarin until he gets his INR checked on Thursday. His primary care physician can direct what to do moving forward (discharge instructions however say restart warfarin when INR less than 3).
== END 2023-09-11 18:30 | disposition home health service (06) | DRG 202 ==
LOC: 2 NORTH 15:23
PROVIDERS: Physician Assistant; ADMITTING PHYSICIAN Internal Medicine; ATTENDING PHYSICIAN Internal Medicine; EMERGENCY PHYSICIAN Emergency Medicine; FAMILY PHYSICIAN Internal Medicine
DX: J20.9 Acute bronchitis, unspecified (principal); C34.92 Malignant neoplasm of unspecified part of left bronchus or lung; C79.51 Secondary malignant neoplasm of bone; J96.11 Chronic respiratory failure with hypoxia; I50.22 Chronic systolic (congestive) heart failure; I48.21 Permanent atrial fibrillation; F11.20 Opioid dependence, uncomplicated; F13.20 Sedative, hypnotic or anxiolytic dependence, uncomplicated; I11.0 Hypertensive heart disease with heart failure; E03.9 Hypothyroidism, unspecified; R26.9 Unspecified abnormalities of gait and mobility; Z99.81 Dependence on supplemental oxygen; Z95.0 Presence of cardiac pacemaker; Z87.820 Personal history of traumatic brain injury
CPT/HCPCS: 71046; 80048; 80053; 83605; 83880; 84484; 85025; 85610; 87040; 87070; 87205; 87811; 92610; 93005; 94640; 96374; 97163; 97530; 99285

== ENCOUNTER 2023-10-21 10:01 | Emergency (ER) | payer MEDICARE, OTHER, SELFPAY ==
[2023-10-21 10:06] VITALS: BP 101/83
--- NOTE | 2023-10-21 11:37 | ED.GENMED ---
History of Present Illness
General
Chief Complaint: Cold/Flu/URI Symptoms
Source: patient
Exam Limitations: none
Time Seen by Provider: 10/21/23 11:02
History of Present Illness
History of Present Illness:
83-year-old male presents with unsteady sensation and ears feeling blocked. He went to the urgent care several days ago and had his ear washed. He is on Coumadin since he had his left ear washed out he has had some bleeding to the left ear. He
denies a fever cough. No headache. He has a history of traumatic brain injury. Accompanied by his . No other complaints at this time
Past History
Past History
ED Past Medical History: Arrthythmia (atrial fibrillation), Cancer (Lung, prostate, Skin CA), CHF, COPD, GERD, HTN, Hypercholesterolemia, Hypothyroidism, Psychiatric (Anxiety, Depression) and Other (TBI, Sleep apnea, CPCP, Renal calculus, Detached
retina, )
ED Past Surgical History: Cardiac (Pacemaker/Def for VF, Ablation X 2, ), Orthopedic (Plate in cervical spine) and Other (Prostatectomy, resection of a lung mass, surgery for a left detached retina,. AAA, Hernia, )
Social History
Tobacco: Former smoker
Alcohol: None
Drug: None
Personal:
Living: with family
Employment: Employed
Family History
Family History: Other (Mother with cancer of the breast followed with COPD)
Phy Exam
Physical Exam
Physical Exam:
General: Well-appearing male no acute respiratory distress
HEENT: Right external auditory canal impacted with cerumen. Left external auditory canal with blood clot noted in the canal.
Course
Orders/Labs/Results
Orders:
Orders
10/21/23 10:10
Electrocardiogram (*1) Urgent
Reason for Study: Tachycardia
Other Reason for Exam: left shoulder pain
EKG- Treatment ONCE
Vital Signs
Initial and Last Documented VS:
Initial Vital Signs
Temp Pulse BP Pulse Ox
98.6 F 106 101/83 93
10/21/23 10:06 10/21/23 10:06 10/21/23 10:06 10/21/23 10:06
Last Documented Vital Signs
Temp Pulse BP Pulse Ox
98.6 F 106 101/83 93
10/21/23 10:06 10/21/23 10:06 10/21/23 10:06 10/21/23 10:06
MDM/Problems Addressed
Differential Diagnosis Includes:
Right ear was easily irrigated with warm water and cleared the cerumen impaction. The right external auditory canal and tympanic membrane within normal limits. Left external auditory canal was evacuated of blood clot using suction and forceps.
The TM was visualized. There is a small amount of erythema to the TM and the canal was diffusely inflamed. No active bleeding noted
The piece of cotton soaked with antibacterial ointment was applied into the ear on the left side to help provide hemostasis. Patient was started on amoxicillin given his immunocompromise state and inflamed ear canal and slightly red eardrum. He is
at his baseline otherwise. Stable for discharge.
*Critical Care Note
Total Time (30-74mins, 75-104mins- exclusive of procedures): Not Applicable
ED Attending Note
-
Portions of this chart may have been created with voice recognition software.� Occasional wrong word or��sound alike� substitutions may have occurred due to the inherent limitations of voice recognition software.
Discharge Plan
Departure
Patient Disposition: Home (Routine Discharge)
Date of Disposition: 10/21/23
Time of Disposition: 11:41
Patient with high blood pressure during this ER visit?: No
Discharge Problem:
Abrasion of left ear canal, Impacted cerumen, right ear
Instructions: Ear wax impaction
Prescriptions:
New
amoxicillin 500 mg capsule
500 mg PO TID Qty: 21 0RF
No Action
sertraline 100 MG tablet
100 mg PO DAILY
omeprazole 40 MG capsule,delayed release(DR/EC)
40 mg PO QPM
atorvastatin 80 mg Tablet
80 mg PO QPM
divalproex 250 mg Tablet,Delayed Release (Dr/Ec)
250 mg PO BID
cholecalciferol (vitamin D3) 25 mcg (1,000 unit) Tablet
25 mcg PO DAILY
Entresto 24-26 mg Tablet
1 tab PO BID
melatonin 5 mg Tablet
10 mg PO HS
magnesium 250 mg Tablet
250 mg PO Q48H@1800
carvedilol 6.25 mg Tablet
6.25 mg PO BID Qty: 0 0RF
therapeutic multivitamin Tablet
1 tab PO DAILY
fexofenadine [Dai Allergy] 180 mg Tablet
180 mg PO QPM
warfarin 4 mg Tablet
6 mg PO SUMOTUWEFR
warfarin 4 mg Tablet
4 mg PO THSA
levothyroxine 88 mcg Tablet
88 mcg PO DAILY
alprazolam 0.25 mg Tablet
0.25 mg PO HS
Patient Comments:
09/09/23: Not taken on same nights as oxycodone
betamethasone valerate 0.12 % Foam
1 applic TOPICAL BIDPRN PRN (Reason: scalp itching)
oxycodone 5 mg Tablet
5 mg PO HSPRN PRN (Reason: severe pain)
buprenorphine 15 mcg/hour Patch Weekly
1 patch TRANSDERMAL WE
guaifenesin 600 mg Tablet Extended Release 12hr
600 mg PO Q12 Qty: 14 0RF
cefuroxime axetil 500 mg tablet
500 mg PO BID Qty: 6 0RF
doxycycline hyclate 100 mg Capsule
100 mg PO Q12 Qty: 6 0RF
albuterol sulfate 90 mcg/actuation HFA aerosol inhaler
2 puff inhalation Q6H PRN (Reason: shortness of breath or wheezing) Qty: 6.7 0RF
Activity Restrictions/Additional Instructions:
He may use Tylenol if needed for pain. Take amoxicillin as directed. Follow-up with ENT as planned
Interventions
Interventions:
*Risk Screen - Suicide Last Done: 10/21/23 11:20
*General Assessment Last Done: 10/21/23 11:20
*Neglect/Abuse Screening Last Done: 10/21/23 11:20
ED- Fall Risk Assessment Last Done: 10/21/23 11:20
*Nursing Disposition Last Done: 10/21/23 12:13
ED- Pulmonary Assessment Last Done: 10/21/23 11:20
Discharge Date and Time
Discharge Date/Time: 10/21/23 12:14
Print Language: SWEDISH
== END 2023-10-21 12:14 | disposition home or self-care (01) ==
LOC: EMR 10:01
PROVIDERS: EMERGENCY PHYSICIAN Emergency Medicine; FAMILY PHYSICIAN Internal Medicine
DX: S00.412A Abrasion of left ear, initial encounter (principal); H61.21 Impacted cerumen, right ear; X58.XXXA Exposure to other specified factors, initial encounter; I48.91 Unspecified atrial fibrillation; J44.9 Chronic obstructive pulmonary disease, unspecified; K21.9 Gastro-esophageal reflux disease without esophagitis; I11.0 Hypertensive heart disease with heart failure; I50.9 Heart failure, unspecified; F41.8 Other specified anxiety disorders; E78.00 Pure hypercholesterolemia, unspecified; E03.9 Hypothyroidism, unspecified; G47.30 Sleep apnea, unspecified; Z79.01 Long term (current) use of anticoagulants; Z87.442 Personal history of urinary calculi; Z87.820 Personal history of traumatic brain injury; Z87.891 Personal history of nicotine dependence; Z90.79 Acquired absence of other genital organ(s); Z95.0 Presence of cardiac pacemaker
CPT/HCPCS: 99283; 93005

== ENCOUNTER 2023-11-29 08:32 | Emergency (ER) | payer MEDICARE, OTHER, SELFPAY ==
[2023-11-29] VITALS (7 sets, daily range): BP systolic 81–113; BP diastolic 57–76; BMI 33.2
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
[2023-11-29 09:47] LABS: % Basophils 0.1 % (0-2); % Eosinophils 0.5 % (0-6); % Immature Granulocytes 0.4 % (0-0.5); % Lymphocytes 9.5 % (20.5-51.1); % Monocytes 8.4 % (1.7-9.3); % Neutrophils 81.1 % (42.2-75.2); Absolute Lymphocytes 0.8 10^3/uL (1.2-3.4); Absolute Monocytes 0.7 10^3/uL (0.1-0.6); Absolute Neutrophils 6.5 10^3/uL (1.4-6.5); Hematocrit 37.8 % (39.0-52.0); Hemoglobin 12.6 g/dL (13.0-18.0); Mean Corp Hgb Conc. 33.3 g/dL (33.0-37.0); Mean Corpuscular Hgb 30.4 pg (27.0-31.0); Mean Corpuscular Volume 91.1 fL (80.0-94.0); Mean Platelet Volume 10.4 fL (7.4-10.4); Nucleated Red Blood Cells % 0 % (-); Platelet Count 142 10^3/uL (130-400); Red Blood Cell Count 4.15 10^6/uL (4.70-6.10); Red Cell Dist. Width 15.5 % (11.5-14.5)
[2023-11-29 10:09] LABS: ALT (SGPT) 18 U/L (0-50); AST (SGOT) 27 U/L (17-59); Albumin 4.3 g/dl (3.5-5.0); Alkaline Phosphatase 77 U/L (38-126); Blood Urea Nitrogen 24 mg/dl (9-20); Calcium 9.3 mg/dl (8.4-10.2); Carbon Dioxide 28 mmol/L (22-30); Chloride 102 mmol/L (98-107); Estimated Creatinine Clearance 60 ml/min; Glucose 118 mg/dl (70-99); Lipase 59 U/L (23-300); Potassium 4.7 mmol/L (3.5-5.1); Sodium 142 mmol/L (135-145); Total Bilirubin 0.7 mg/dl (0.2-1.3); Total Protein 6.6 g/dl (6.3-8.2); eGFR > 60.00
[2023-11-29] MEDS: ROXICODONE 5 MG PO (10:35)
[2023-11-29] MEDS: BENADRYL 12.5 MG IV (10:43)
[2023-11-29 12:21] LABS: Urine Albumin Negative (Neg - Trace); Urine Bilirubin Negative (Negative); Urine Character Clear (Clear); Urine Color Yellow; Urine Glucose Negative (Negative); Urine Ketone Negative (Negative); Urine Leukocyte Negative (Negative); Urine Nitrite Negative (Negative); Urine Occult Blood Negative (Negative); Urine Urobilinogen Negative (Neg - 1+); Urine pH 6.5 (5.0-9.0)
== END 2023-11-29 13:17 | disposition home or self-care (01) ==
LOC: EMR 08:32
PROVIDERS: EMERGENCY PHYSICIAN Student in an Organized Health Care Education/Training Program; FAMILY PHYSICIAN Internal Medicine
DX: R10.9 Unspecified abdominal pain (principal); I48.91 Unspecified atrial fibrillation; I13.0 Hypertensive heart and chronic kidney disease with heart failure and stage 1 through stage 4 chronic kidney disease, or unspecified chronic kidney disease; N18.9 Chronic kidney disease, unspecified; I50.9 Heart failure, unspecified; E78.00 Pure hypercholesterolemia, unspecified; E03.9 Hypothyroidism, unspecified; F41.9 Anxiety disorder, unspecified; G47.30 Sleep apnea, unspecified; J44.9 Chronic obstructive pulmonary disease, unspecified; K21.9 Gastro-esophageal reflux disease without esophagitis; Z79.01 Long term (current) use of anticoagulants; Z85.118 Personal history of other malignant neoplasm of bronchus and lung; Z87.442 Personal history of urinary calculi; Z87.820 Personal history of traumatic brain injury; Z87.891 Personal history of nicotine dependence; Z90.79 Acquired absence of other genital organ(s); Z92.3 Personal history of irradiation; Z95.0 Presence of cardiac pacemaker
CPT/HCPCS: 99284; 96374; 74177; 80053; 81003; 83690; 85025; Q9967

== ENCOUNTER 2023-12-18 14:31 | Inpatient (IN) | payer MEDICARE, OTHER, SELFPAY ==
[2023-12-18] VITALS (13 sets, daily range): BP systolic 114–143; BP diastolic 76–98; BMI 31.1
--- NOTE | 2023-12-18 08:11 | ED.GENMED ---
History of Present Illness
General
Chief Complaint: Fall
Time Seen by Provider: 12/18/23 08:10
History of Present Illness
History of Present Illness:
TIME OF INITIAL ENCOUNTER: 8:15 AM
HPI:
I spoke to EMS for history and I also spoke to the patient at bedside. The patient slid out of bed today. He has a history of lung cancer and there is some questionable increase in shortness of breath. He is on palliative care and reportedly has
a DNR, he is not hospice. Family wanted him to be checked and come to the hospital as they could not lift him after the fall. Although the patient is on Coumadin, he adamantly denies any head injury.
EXAM:
GENERAL: Chronically ill in appearance, appears generally weak and debilitated
HEENT: Slightly dry oral mucosa
CARDIOVASCULAR: No murmurs, borderline tachycardic heart rate, irregular rhythm, No chest wall tenderness
PULMONARY: Mild respiratory distress, increased work of breathing, tachypnea, rales at the left base
ABDOMEN: Soft with no peritoneal signs, no tenderness
NEUROLOGIC: Appears generally in all extremities, no coordination deficits
PSYCHIATRIC: Appropriate mental status, reasonable insight and judgement
EXTREMITIES: Nontender, trace if any lower extremity edema, moves all extremities equally
SKIN: No rash, no lesions
NUMBER AND COMPLEXITY OF PROBLEMS ADDRESSED AT THE ENCOUNTER
� Chronic conditions affecting care: TBI/memory loss, lung cancer on CPAP, A-fib, CHF, high blood pressure, hyperlipidemia
� Acute Exacerbation and/or Progression of Chronic Illness: This is an acute problem
� Differential Diagnosis includes: Anemia, dysrhythmia, dehydration, ESTUARDO, progression of lung cancer, CHF
AMOUNT AND/OR COMPLEXITY OF DATA TO BE REVIEWED AND ANALYZED
� I performed an independent evaluation of and my interpretation is:
EKG: A-fib 104, IVCD, nonspecific ST abnormality, no significant changes in comparison to 10/21/2023
CT:
X-rays: Left knee x-ray shows moderate to severe osteoarthritis with no acute fracture; suspicion for pulmonary edema versus interstitial pneumonitis
Laboratory Studies: White count normal at 6.6, hemoglobin 12.0, INR 2.4, bicarb slightly elevated at 33, BNP 7840 which is higher than prior
Other:
� Review of other/old records: The patient's hemoglobin earlier this month was 12.6; he was admitted with acute bronchitis 3 months ago, BNP in August 2023 was 3110
� Clinical information was obtained by an independent historian: I spoke to EMS at bedside
� Prescriptions/Medications Considered but not given:
� Further testing considered but not performed: Considered CT brain as patient is on Coumadin however the patient adamantly denies any head injury and there is no evidence of craniofacial trauma
RISK OF COMPLICATIONS AND/OR MORBIDITY OR MORTALITY OF PATIENT MANAGEMENT
� Social determinants of health affecting care: Lives at home
� Discussion with other providers: Dr. Joya at 9:33 AM for admission
� Escalation of care including admission/observation vs risk of discharge considered:
ANY OTHER UPDATES:
9 AM: indicated that the patient has been having abdominal pain. I reviewed old records. The patient had no acute findings on abdominal pelvis CT from 11/29/2023
9:30 AM: The patient remains tachypneic. BNP and chest x-ray suggest CHF. He is already on Entresto but is not chronically diuresed�will add diuretic now. does not feel that he is well enough to return home at this time.
Past History
Past History
ED Past Medical History: Arrthythmia (atrial fibrillation), Cancer (Lung, prostate, Skin CA), CHF, COPD, GERD, HTN, Hypercholesterolemia, Hypothyroidism, Psychiatric (Anxiety, Depression) and Other (TBI, Sleep apnea, CPCP, Renal calculus, Detached
retina, )
ED Past Surgical History: Cardiac (Pacemaker/Def for VF, Ablation X 2, ), Orthopedic (Plate in cervical spine) and Other (Prostatectomy, resection of a lung mass, surgery for a left detached retina,. AAA, Hernia, )
Social History
Tobacco: Former smoker
Alcohol: None
Drug: None
Personal:
Living: with family
Employment: Employed
Family History
Family History: Other (Mother with cancer of the breast followed with COPD)
Phy Exam
Physical Exam
Physical Exam:
See HPI
Course
Orders/Labs/Results
Orders:
Orders
12/18/23 08:20
EKG [Electrocardiogram (*1)] Urgent
Reason for Study: Tachycardia
EKG- Treatment ONCE
CR Chest - 2 Views Urgent
Comment:
Reason For Exam: lung CA, sob, rales left base
12/18/23 08:32
Complete Blood Count/With Diff Urgent
Comprehensive Metabolic Panel Urgent
NT-proBNP Urgent
Prothrombin Time Urgent
12/18/23 08:41
CR Knee - Left 4 Or More View* Urgent
Comment:
Reason For Exam: trauma
12/18/23 09:31
Furosemide [Lasix] 40 mg IV NOW STA
Abnormal Lab Results
12/18/23
08:32
RBC 3.98 L 10^6/uL
(4.70-6.10)
Hgb 12.0 L g/dL
(13.0-18.0)
Hct 36.7 L %
(39.0-52.0)
MCHC 32.7 L g/dL
(33.0-37.0)
RDW 15.0 H %
(11.5-14.5)
Absolute Lymphs (auto) 0.7 L 10^3/uL
(1.2-3.4)
Neutrophils % 78.6 H %
(42.2-75.2)
Lymphocytes % 10.4 L %
(20.5-51.1)
Monocytes % 9.7 H %
(1.7-9.3)
PT 25.7 H Sec
(11.4-14.6)
Carbon Dioxide 33 H mmol/L
(22-30)
Glucose 105 H mg/dl
(70-99)
Total Protein 6.2 L g/dl
(6.3-8.2)
12/18/23 08:32
12/18/23 08:32
Vital Signs
Initial and Last Documented VS:
Initial Vital Signs
Temp Pulse Resp BP Pulse Ox
97.8 F 106 21 125/91 100
12/18/23 08:15 12/18/23 08:15 12/18/23 08:15 12/18/23 08:15 12/18/23 08:15
Last Documented Vital Signs
Temp Pulse Resp BP Pulse Ox
97.8 F 105 21 136/97 100
12/18/23 08:15 12/18/23 09:52 12/18/23 08:15 12/18/23 09:52 12/18/23 08:15
*Critical Care Note
Total Time (30-74mins, 75-104mins- exclusive of procedures): Not Applicable
ED Attending Note
-
Portions of this chart may have been created with voice recognition software.� Occasional wrong word or��sound alike� substitutions may have occurred due to the inherent limitations of voice recognition software.
Discharge Plan
Departure
Patient Disposition: Admit
Date of Disposition: 12/18/23
Time of Disposition: 09:53
Presentation/result/management discussed w/ accepting MD/DO: Hospitalist
Discharge Problem:
Congestive heart failure
Prescriptions:
No Action
sertraline 100 MG tablet
125 mg PO DAILY@1200
atorvastatin 80 mg Tablet
80 mg PO QPM
divalproex 250 mg Tablet,Delayed Release (Dr/Ec)
250 mg PO BID
cholecalciferol (vitamin D3) 25 mcg (1,000 unit) Tablet
25 mcg PO DAILY
Entresto 24-26 mg Tablet
1 tab PO BID
melatonin 5 mg Tablet
10 mg PO HS
magnesium 250 mg Tablet
250 mg PO Q48H@1800
therapeutic multivitamin Tablet
1 tab PO DAILY
fexofenadine [Dai Allergy] 180 mg Tablet
180 mg PO QPM
levothyroxine 88 mcg Tablet
88 mcg PO DAILY
oxycodone 5 mg Tablet
5 mg PO HSPRN PRN (Reason: severe pain)
guaifenesin [Mucinex Fast-Max Chest-Congest] 100 mg/5 mL Liquid
200 mg PO DAILYPRN PRN (Reason: cough)
warfarin 4 mg Tablet
4 mg PO SUMOTHFRSA@1900
warfarin 4 mg Tablet
6 mg PO TUWE@1900
carvedilol [Coreg] 6.25 mg Tablet
6.25 mg PO Q12H
lidocaine 4 % Adhesive Patch,Medicated
1 patch TOPICAL DAILYPRN PRN (Reason: left shoudler, right hip)
lorazepam 0.5 mg Tablet
0.5 mg PO TIDPRN PRN (Reason: anxiety)
bismuth subsalicylate [Pepto-Bismol] 262 mg Tablet,Chewable
2 tab PO QIDPRN PRN (Reason: gerd)
furosemide [Lasix] 20 mg Tablet
20 mg PO DAILYPRN PRN (Reason: fluid overload)
omeprazole 20 mg Tablet,Delayed Release (Dr/Ec)
20 mg PO DAILY
azelastine [Astepro] 205.5 mcg (0.15 %) [place],Non-Aerosol
1 spray INTRANASAL BIDPRN PRN (Reason: allergies)
Interventions
Interventions:
*Risk Screen - Suicide Last Done: 12/18/23 08:23
*General Assessment Last Done: 12/18/23 08:23
*ED COVID-19 Vaccine History Last Done: 12/18/23 08:23
ED- Neurological Assessment Last Done: 12/18/23 08:30
Discharge Date and Time
Print Language: SWEDISH
[2023-12-18 08:40] LABS: % Basophils 0.2 % (0-2); % Eosinophils 0.8 % (0-6); % Immature Granulocytes 0.3 % (0-0.5); % Lymphocytes 10.4 % (20.5-51.1); % Monocytes 9.7 % (1.7-9.3); % Neutrophils 78.6 % (42.2-75.2); Absolute Eosinophils 0.1 10^3/uL (0-0.7); Absolute Lymphocytes 0.7 10^3/uL (1.2-3.4); Absolute Monocytes 0.6 10^3/uL (0.1-0.6); Absolute Neutrophils 5.2 10^3/uL (1.4-6.5); Hematocrit 36.7 % (39.0-52.0); Mean Corp Hgb Conc. 32.7 g/dL (33.0-37.0); Mean Corpuscular Hgb 30.2 pg (27.0-31.0); Mean Corpuscular Volume 92.2 fL (80.0-94.0); Nucleated Red Blood Cells % 0 % (-); Platelet Count 141 10^3/uL (130-400); Red Blood Cell Count 3.98 10^6/uL (4.70-6.10); White Blood Cell Count 6.6 10^3/uL (4.8-10.8)
[2023-12-18 08:50] LABS: INR 2.36; PT 25.7 Sec (11.4-14.6)
[2023-12-18 09:02] LABS: ALT (SGPT) 16 U/L (0-50); AST (SGOT) 22 U/L (17-59); Albumin 3.9 g/dl (3.5-5.0); Alkaline Phosphatase 80 U/L (38-126); Blood Urea Nitrogen 18 mg/dl (9-20); Carbon Dioxide 33 mmol/L (22-30); Chloride 101 mmol/L (98-107); Estimated Creatinine Clearance 56 ml/min; Glucose 105 mg/dl (70-99); NT-proBNP 7840 pg/ml; Sodium 143 mmol/L (135-145); Total Bilirubin 0.5 mg/dl (0.2-1.3); Total Protein 6.2 g/dl (6.3-8.2); eGFR > 60.00
[2023-12-18] MEDS: LASIX 40 MG IV (09:52)
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
--- NOTE | 2023-12-18 16:47 | PTCARENOTE ---
received patient as admission and vital signs captured from when patient in ED
--- NOTE | 2023-12-18 17:16 | CARDSERVLU ---
Echocardiogram with [facility] completed after protocol screening completed. Allergies verified.
Patent IV site: _RH____
IV site flushed with 0.9% NaCl pre and post administration.
Diluted bolus method utilized to enhance visualization of ventricular kate.
Total volume given: __3__ mL
Patient tolerated all procedures well without complications.
[2023-12-18] MEDS: MIRALAX 17 GRAMS PO (18:03)
[2023-12-18] MEDS: LIPITOR 80 MG PO (18:03)
[2023-12-18] MEDS: CLARITIN 10 MG PO (18:03)
[2023-12-18] MEDS: PROTONIX 40 MG PO (18:03)
[2023-12-18] MEDS: SYNTHROID PO (18:04)
[2023-12-18] MEDS: MAGNESIUM OXIDE 250 MG PO (18:05)
[2023-12-18] MEDS: COUMADIN 4 MG PO (19:36)
[2023-12-18] MEDS: COREG 6.25 MG PO (20:26)
[2023-12-18] MEDS: ENTRESTO 24 MG/26 MG 1 TAB PO (20:26)
[2023-12-18] MEDS: ROXICODONE 5 MG PO (20:26)
[2023-12-18] MEDS: DEPAKOTE (12 HR RELEASE) 250 MG PO (20:27)
[2023-12-18] MEDS: MELATONIN 10 MG PO (21:34)
[2023-12-19] VITALS (8 sets, daily range): BP systolic 101–155; BP diastolic 59–91; PULSE 97; O2SAT 93; BMI 30.3
[2023-12-19] MEDS: SYNTHROID 88 MCG PO (05:56)
[2023-12-19 08:11] LABS: % Basophils 0.3 % (0-2); % Eosinophils 0.6 % (0-6); % Immature Granulocytes 0.3 % (0-0.5); % Lymphocytes 11.4 % (20.5-51.1); % Monocytes 12.4 % (1.7-9.3); Absolute Lymphocytes 0.7 10^3/uL (1.2-3.4); Absolute Monocytes 0.8 10^3/uL (0.1-0.6); Absolute Neutrophils 4.9 10^3/uL (1.4-6.5); Hematocrit 35.8 % (39.0-52.0); Hemoglobin 11.6 g/dL (13.0-18.0); Mean Corp Hgb Conc. 32.4 g/dL (33.0-37.0); Mean Corpuscular Hgb 30.1 pg (27.0-31.0); Mean Corpuscular Volume 92.7 fL (80.0-94.0); Mean Platelet Volume 10.1 fL (7.4-10.4); Nucleated Red Blood Cells % 0 % (-); Platelet Count 137 10^3/uL (130-400); Red Blood Cell Count 3.86 10^6/uL (4.70-6.10); Red Cell Dist. Width 14.7 % (11.5-14.5); White Blood Cell Count 6.5 10^3/uL (4.8-10.8)
[2023-12-19 08:14] LABS: INR 2.22; PT 24.5 Sec (11.4-14.6)
[2023-12-19] MEDS: ENTRESTO 24 MG/26 MG 1 TAB PO ×2 (08:29→21:18)
[2023-12-19] MEDS: DEPAKOTE (12 HR RELEASE) 250 MG PO ×2 (08:29→20:23)
[2023-12-19] MEDS: PROTONIX 40 MG PO (08:29)
[2023-12-19] MEDS: COREG 6.25 MG PO ×2 (08:29→20:23)
[2023-12-19] MEDS: THERAGRAN 1 TABLET PO (08:29)
[2023-12-19] MEDS: VITAMIN D3 (cholecalciferol) 25 MCG PO (08:29)
[2023-12-19] MEDS: LASIX 40 MG IV (08:30)
[2023-12-19] MEDS: MIRALAX 17 GRAMS PO (08:30)
[2023-12-19 08:31] LABS: Blood Urea Nitrogen 21 mg/dl (9-20); Calcium 8.9 mg/dl (8.4-10.2); Carbon Dioxide 36 mmol/L (22-30); Chloride 98 mmol/L (98-107); Estimated Creatinine Clearance 56 ml/min; Glucose 108 mg/dl (70-99); Potassium 4.7 mmol/L (3.5-5.1); Sodium 143 mmol/L (135-145); eGFR > 60.00
[2023-12-19] MEDS: ATIVAN 0.5 MG PO (11:22)
[2023-12-19] MEDS: ZOLOFT 125 MG PO (11:28)
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
--- NOTE | 2023-12-19 15:23 | PTCARENOTE ---
patient mildly sob with exertion, administered PRN Ativan for c/o 'feeling like anxiety attack coming on' with good relief (see MAR), tolerating diet, transferring with assist x1 with rolling walker to br/chair, vss, will continue to monitor.
--- NOTE | 2023-12-19 16:57 | CM ---
Alert awake oriented patient who lives with his Huma who lives in a 1 story home with ramp to enter.He is assisted in some activities of daily living.He has hospital bed ramp to enter, CPAP Oxygen with [facility],stair glide at
home.PT recommended VN . Will offer to pt.
[facility]N /[facility] history
Pharmacy [facility] or [facility]
PCP DR Dugan
PLAN Home with VN if accepted
[2023-12-19] MEDS: LIPITOR 80 MG PO (17:22)
[2023-12-19] MEDS: CLARITIN 10 MG PO (17:22)
[2023-12-19] MEDS: COUMADIN 4 MG PO (18:42)
[2023-12-19] MEDS: MELATONIN 10 MG PO (21:18)
[2023-12-19] MEDS: ROXICODONE 5 MG PO (23:28)
[2023-12-20] VITALS (7 sets, daily range): BP systolic 92–108; BP diastolic 56–72; BMI 30.1
[2023-12-20] MEDS: SYNTHROID 88 MCG PO (05:38)
--- NOTE | 2023-12-20 08:12 | PTCARENOTE ---
TT to at 0812: rm 328 Jermaine Beaulieu here with CHF, a DNR, just had a 13 beat run of vtach while asleep. He has been in Afib. BP 97/70 was 104/56 at 0738, now hr 87, 99% 2L 02, reports feeling fine and wants to go back to sleep.
[2023-12-20 08:26] LABS: Hematocrit 33.5 % (39.0-52.0); Hemoglobin 10.9 g/dL (13.0-18.0); Mean Corp Hgb Conc. 32.5 g/dL (33.0-37.0); Mean Corpuscular Volume 89.1 fL (80.0-94.0); Platelet Count 142 10^3/uL (130-400); Red Blood Cell Count 3.76 10^6/uL (4.70-6.10); Red Cell Dist. Width 14.7 % (11.5-14.5); White Blood Cell Count 6.6 10^3/uL (4.8-10.8)
[2023-12-20 08:31] LABS: INR 2.79; PT 29.3 Sec (11.4-14.6)
[2023-12-20] MEDS: ENTRESTO 24 MG/26 MG PO (08:37)
[2023-12-20] MEDS: COREG 6.25 MG PO ×2 (08:37→20:52)
[2023-12-20] MEDS: LASIX 40 MG IV (08:38)
[2023-12-20] MEDS: DEPAKOTE (12 HR RELEASE) 250 MG PO ×2 (08:38→20:55)
[2023-12-20] MEDS: MIRALAX 17 GRAMS PO (08:39)
[2023-12-20] MEDS: PROTONIX 40 MG PO (08:39)
[2023-12-20] MEDS: THERAGRAN 1 TABLET PO (08:39)
[2023-12-20] MEDS: VITAMIN D3 (cholecalciferol) 25 MCG PO (08:39)
[2023-12-20] MEDS: LIDOCAINE 4% PATCH 1 PATCH TOPICAL (08:42)
[2023-12-20] MEDS: FLUSH (NSS) 1 FLUSH IV (08:43)
[2023-12-20 08:45] LABS: ALT (SGPT) 15 U/L (0-50); AST (SGOT) 20 U/L (17-59); Albumin 3.5 g/dl (3.5-5.0); Alkaline Phosphatase 80 U/L (38-126); Blood Urea Nitrogen 31 mg/dl (9-20); Calcium 8.7 mg/dl (8.4-10.2); Carbon Dioxide 36 mmol/L (22-30); Chloride 95 mmol/L (98-107); Estimated Creatinine Clearance 41 ml/min; Glucose 101 mg/dl (70-99); Potassium 4.4 mmol/L (3.5-5.1); Sodium 139 mmol/L (135-145); Total Bilirubin 0.6 mg/dl (0.2-1.3); Total Protein 5.8 g/dl (6.3-8.2); eGFR 46.48
[2023-12-20] MEDS: ROXICODONE 5 MG PO ×2 (11:32→17:11)
[2023-12-20] MEDS: ZOLOFT 125 MG PO (11:33)
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
[2023-12-20] MEDS: CLARITIN 10 MG PO (17:04)
[2023-12-20] MEDS: LIPITOR 80 MG PO (17:04)
[2023-12-20] MEDS: MAGNESIUM OXIDE 250 MG PO (17:04)
[2023-12-20] MEDS: COUMADIN 4 MG PO (17:10)
[2023-12-20] MEDS: MELATONIN 10 MG PO (20:56)
[2023-12-21] VITALS (11 sets, daily range): BP systolic 96–125; BP diastolic 64–84; PULSE 127; BMI 31.5
[2023-12-21] MEDS: ROXICODONE 5 MG PO ×3 (04:06→17:05)
[2023-12-21] MEDS: ATIVAN 0.5 MG PO ×2 (04:06→18:43)
[2023-12-21] MEDS: SYNTHROID 88 MCG PO (05:07)
[2023-12-21 06:19] LABS: Hematocrit 32.2 % (39.0-52.0); Hemoglobin 10.7 g/dL (13.0-18.0); Mean Corp Hgb Conc. 33.2 g/dL (33.0-37.0); Mean Corpuscular Hgb 29.2 pg (27.0-31.0); Mean Corpuscular Volume 87.7 fL (80.0-94.0); Platelet Count 132 10^3/uL (130-400); Red Blood Cell Count 3.67 10^6/uL (4.70-6.10); Red Cell Dist. Width 14.3 % (11.5-14.5); White Blood Cell Count 7.6 10^3/uL (4.8-10.8)
[2023-12-21 06:34] LABS: INR 2.91; PT 30.4 Sec (11.4-14.6)
[2023-12-21 06:44] LABS: ALT (SGPT) 15 U/L (0-50); AST (SGOT) 20 U/L (17-59); Albumin 3.5 g/dl (3.5-5.0); Alkaline Phosphatase 81 U/L (38-126); Blood Urea Nitrogen 35 mg/dl (9-20); Calcium 8.7 mg/dl (8.4-10.2); Carbon Dioxide 35 mmol/L (22-30); Chloride 94 mmol/L (98-107); Estimated Creatinine Clearance 45 ml/min; Glucose 111 mg/dl (70-99); Potassium 4.8 mmol/L (3.5-5.1); Sodium 139 mmol/L (135-145); Total Bilirubin 0.5 mg/dl (0.2-1.3); Total Protein 5.9 g/dl (6.3-8.2); eGFR 50.49
[2023-12-21] MEDS: THERAGRAN 1 TABLET PO (09:03)
[2023-12-21] MEDS: PROTONIX 40 MG PO (09:03)
[2023-12-21] MEDS: COREG 6.25 MG PO ×2 (09:03→19:38)
[2023-12-21] MEDS: DEPAKOTE (12 HR RELEASE) 250 MG PO ×2 (09:03→23:37)
[2023-12-21] MEDS: VITAMIN D3 (cholecalciferol) 25 MCG PO (09:03)
[2023-12-21] MEDS: MIRALAX 17 GRAMS PO (09:16)
[2023-12-21] MEDS: LIDOCAINE 4% PATCH 1 PATCH TOPICAL (12:54)
[2023-12-21] MEDS: ZOLOFT 125 MG PO (12:54)
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
[2023-12-21] MEDS: CLARITIN 10 MG PO (17:05)
[2023-12-21] MEDS: LIPITOR 80 MG PO (17:05)
[2023-12-21] MEDS: COUMADIN 4 MG PO (18:02)
[2023-12-21] MEDS: MORPHINE SULFATE 2 MG IV (18:54)
--- NOTE | 2023-12-21 19:50 | W.PN.UPDATE ---
Update Note
Progress Note Update
Patient is a-fib with hr 130s-140s, asymptomatic. Denied SOB/ chest pain or palpitation.
-Will check Bmp, mag.
-One time order of Lopressor 2.5 was given.
-Mag and bmp result unremarkable.
[2023-12-21] MEDS: LOPRESSOR 2.5 MG IV (19:57)
--- NOTE | 2023-12-21 21:00 | PTCARENOTE ---
@193;Tele monitor alarming w/A fib , rate =165.Ekg done and V/S charted. VIGNESH Dillard notified via TT and up to see pt.Lopressor2.5mg IV ordered and administered. @2055; Tele monitor A Fib w/HR127.VIGNESH Dillard notified verbally on
floor.
[2023-12-21 21:38] LABS: Blood Urea Nitrogen 33 mg/dl (9-20); Calcium 8.8 mg/dl (8.4-10.2); Carbon Dioxide 31 mmol/L (22-30); Chloride 94 mmol/L (98-107); Estimated Creatinine Clearance 52 ml/min; Glucose 146 mg/dl (70-99); Magnesium 1.8 mg/dl (1.6-2.3); Potassium 4.8 mmol/L (3.5-5.1); Sodium 136 mmol/L (135-145); eGFR > 60.00
[2023-12-21] MEDS: MELATONIN 10 MG PO (23:37)
[2023-12-22 03:13] VITALS: BP 117/80
--- NOTE | 2023-12-22 04:00 | PTCARENOTE ---
@0300;Pt removed his CPAP.
[2023-12-22] MEDS: ROXICODONE 5 MG PO (05:00)
[2023-12-22 06:00] VITALS: BMI 30.5
[2023-12-22 06:24] LABS: % Basophils 0.2 % (0-2); % Eosinophils 0.2 % (0-6); % Immature Granulocytes 0.4 % (0-0.5); % Lymphocytes 9.4 % (20.5-51.1); % Monocytes 12.1 % (1.7-9.3); % Neutrophils 77.7 % (42.2-75.2); Absolute Lymphocytes 0.9 10^3/uL (1.2-3.4); Absolute Monocytes 1.1 10^3/uL (0.1-0.6); Hematocrit 35.5 % (39.0-52.0); Hemoglobin 11.9 g/dL (13.0-18.0); Mean Corp Hgb Conc. 33.5 g/dL (33.0-37.0); Mean Corpuscular Hgb 29.2 pg (27.0-31.0); Mean Corpuscular Volume 87.2 fL (80.0-94.0); Mean Platelet Volume 10.4 fL (7.4-10.4); Nucleated Red Blood Cells % 0 % (-); Platelet Count 154 10^3/uL (130-400); Red Blood Cell Count 4.07 10^6/uL (4.70-6.10); Red Cell Dist. Width 14.3 % (11.5-14.5)
[2023-12-22] MEDS: SYNTHROID 88 MCG PO (06:28)
[2023-12-22 06:36] LABS: INR 3.38; PT 34.2 Sec (11.4-14.6)
[2023-12-22] MEDS: LIDOCAINE 4% PATCH 1 PATCH TOPICAL (07:27)
[2023-12-22] MEDS: PROTONIX 40 MG PO (07:27)
[2023-12-22] MEDS: DEPAKOTE (12 HR RELEASE) 250 MG PO (07:27)
[2023-12-22] MEDS: THERAGRAN 1 TABLET PO (07:27)
[2023-12-22] MEDS: VITAMIN D3 (cholecalciferol) 25 MCG PO (07:27)
[2023-12-22 07:33] LABS: Blood Urea Nitrogen 33 mg/dl (9-20); Calcium 9.1 mg/dl (8.4-10.2); Carbon Dioxide 32 mmol/L (22-30); Chloride 94 mmol/L (98-107); Estimated Creatinine Clearance 51 ml/min; Glucose 109 mg/dl (70-99); Potassium 4.6 mmol/L (3.5-5.1); Sodium 137 mmol/L (135-145); eGFR > 60.00
[2023-12-22 08:06] VITALS: BP 108/70
[2023-12-22] MEDS: MIRALAX 17 GRAMS PO (08:25)
[2023-12-22] MEDS: ATIVAN 0.5 MG PO (08:25)
[2023-12-22] MEDS: COREG 6.25 MG PO (08:25)
[2023-12-22 09:50] VITALS: BP 108/75; PULSE 111; O2SAT 96
--- NOTE | 2023-12-22 11:18 | CM ---
Addendum entered by Kori Velasquez 12/22/23 12:39:
Call vack from spouse requesting pt now dc to [facility] as she works there
Referral made and pt accepted for admission today
Update to pt bedside
IMM verbally reviewed- copy provided
Transport forms completed
VM left for spouse with update
Discharge Disposition- [facility] via BLS
Phone- [phone] Fax- [phone]
Original Note:
CM reviewed pt with Dr Pruett
CM consulted for hospice
Call with spouse who notes she is not interested in hospice at this time per her conversation with pt's onc
She is requesting [facility] to be set up on dc, notes her son moved in and she has plenty of family to help care for pt at home
Therapy noted reviewed and she feels comfortable with his care needs
Referral to [facility] and update to Dr Pruett
Discharge Disposition- home with [facility] (referral pending)
[2023-12-22 11:28] VITALS: BP 98/68
--- NOTE | 2023-12-22 11:34 | W.DS.TRANS ---
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
-
Discharge Instructions:
Sleep Apnea Risk Intermediate
Discharge Diagnosis/Procedures Acute CHF
Severe cardiomyopathy with EF of 15 to 20%
Acute kidney injury
Progressive deconditioning failure to thrive
impression with metastatic lung carcinoma
Diet 2 Gram Sodium
Blood Work INR 12/22
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
Stand-Alone Forms:
Changes to Home Medications: No
Discharge Medications:
DC Medications w/original date entered in [employer]
sertraline 100 mg tablet 125 mg PO DAILY@1200 Depression 08/30/20
atorvastatin 80 mg tablet 80 mg PO QPM High cholesterol 01/02/22
divalproex 250 mg tablet,delayed release 250 mg PO BID Neurological Condition 01/02/22
cholecalciferol (vitamin D3) 25 mcg (1,000 unit) tablet 25 mcg PO DAILY Heart Failure 05/06/23
melatonin 5 mg tablet 10 mg PO HS Sleep 05/06/23
magnesium 250 mg tablet 250 mg PO Q48H@1800 Supplement 05/07/23
fexofenadine 180 mg tablet (Dai Allergy) 180 mg PO QPM Allergies 09/09/23
levothyroxine 88 mcg tablet 88 mcg PO DAILY Thyroid 09/09/23
oxycodone 5 mg tablet 5 mg PO HSPRN PRN severe pain 09/09/23
therapeutic multivitamin 1 tab PO DAILY Supplement 09/09/23
azelastine 205.5 mcg (0.15 %) nasal spray 1 spray intranasal BIDPRN PRN allergies 12/18/23
bismuth subsalicylate 262 mg chewable tablet (Pepto-Bismol) 2 tab PO QIDPRN PRN gerd 12/18/23
carvedilol 6.25 mg tablet (Coreg) 6.25 mg PO Q12H Blood Pressure 12/18/23
furosemide 20 mg tablet (Lasix) 20 mg PO DAILYPRN PRN fluid overload 12/18/23
guaifenesin 100 mg/5 mL oral liquid 200 mg PO DAILYPRN PRN cough 12/18/23
lidocaine 4 % topical patch 1 patch topical DAILYPRN PRN left shoudler, right hip 12/18/23
lorazepam 0.5 mg tablet 0.5 mg PO TIDPRN PRN anxiety 12/18/23
omeprazole 20 mg tablet,delayed release 20 mg PO DAILY Gastrointestinal Issue 12/18/23
warfarin 4 mg tablet 4 mg PO SUMOTHFRSA@1900 Blood Clot Prevention/Tx 12/18/23
warfarin 4 mg tablet 6 mg PO TUWE@1900 Blood Clot Prevention/Tx 12/18/23
sacubitril 24 mg-valsartan 26 mg tablet (Entresto) 1 tab PO BID Heart Failure #0 tabs 12/22/23
Home Medication Changes
Pending Results: No
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
--- NOTE | 2023-12-22 11:42 | VNURNOTE ---
Home Health Liaison met with patient at bedside to discuss [facility] nurse/therapy, visits, schedule and homebound status. Patient was drowsy but answered questions appropriately. He is agreeable and understands that visits at home will be 2-3 x per
week to assess and teach medical management. Patient confirms he has a scale at home. [facility] brochure provided with contact information. [facility] for start of care in 1-2 days after discharge from . [facility] referral
completed in [facility].
[2023-12-22] MEDS: ZOLOFT 125 MG PO (11:43)
--- NOTE | 2023-12-22 11:48 | VNURNOTE ---
Addendum: Rec'ed update from BRICE Perez that patient's spouse requesting SNF. [facility]
== END 2023-12-22 14:58 | DRG 291 ==
LOC: 3 WEST ACU 14:31
PROVIDERS: Internal Medicine; Nurse Practitioner Family; ADMITTING PHYSICIAN Internal Medicine; EMERGENCY PHYSICIAN Emergency Medicine; FAMILY PHYSICIAN Internal Medicine
DX: I11.0 Hypertensive heart disease with heart failure (principal); G93.41 Metabolic encephalopathy; C34.90 Malignant neoplasm of unspecified part of unspecified bronchus or lung; F13.20 Sedative, hypnotic or anxiolytic dependence, uncomplicated; I48.21 Permanent atrial fibrillation; N17.9 Acute kidney failure, unspecified; J96.11 Chronic respiratory failure with hypoxia; I50.22 Chronic systolic (congestive) heart failure; I42.9 Cardiomyopathy, unspecified; Z99.81 Dependence on supplemental oxygen; M17.0 Bilateral primary osteoarthritis of knee; Z87.820 Personal history of traumatic brain injury; E03.9 Hypothyroidism, unspecified; G89.3 Neoplasm related pain (acute) (chronic); R29.6 Repeated falls; Z51.5 Encounter for palliative care; Z66 Do not resuscitate; Z79.01 Long term (current) use of anticoagulants
CPT/HCPCS: 71046; 73564; 80048; 80053; 83735; 83880; 85025; 85027; 85610; 87070; 87147; 93005; 93306; 94660; 96374; 97162; 97530; 99285; Q9950

== ENCOUNTER 2024-01-03 18:01 | Inpatient (IN) | payer MEDICARE, OTHER, SELFPAY ==
[2024-01-03] VITALS (10 sets, daily range): BP systolic 95–152; BP diastolic 61–105; BMI 33.0; BMI 31.2
[2024-01-03 15:14] LABS: % Basophils 0.3 % (0-2); % Eosinophils 0.9 % (0-6); % Immature Granulocytes 0.7 % (0-0.5); % Lymphocytes 8.7 % (20.5-51.1); % Monocytes 8.5 % (1.7-9.3); % Neutrophils 80.9 % (42.2-75.2); Absolute Eosinophils 0.1 10^3/uL (0-0.7); Absolute Immature Granulocytes 0.1 10^3/uL (0-0.05); Absolute Lymphocytes 0.7 10^3/uL (1.2-3.4); Absolute Monocytes 0.6 10^3/uL (0.1-0.6); Absolute Neutrophils 6.1 10^3/uL (1.4-6.5); Hemoglobin 11.1 g/dL (13.0-18.0); Mean Corp Hgb Conc. 32.6 g/dL (33.0-37.0); Mean Corpuscular Hgb 29.9 pg (27.0-31.0); Mean Corpuscular Volume 91.6 fL (80.0-94.0); Mean Platelet Volume 9.9 fL (7.4-10.4); Nucleated Red Blood Cells % 0 % (-); Platelet Count 175 10^3/uL (130-400); Red Blood Cell Count 3.71 10^6/uL (4.70-6.10); Red Cell Dist. Width 14.7 % (11.5-14.5); White Blood Cell Count 7.5 10^3/uL (4.8-10.8)
[2024-01-03 15:23] LABS: ALT (SGPT) 20 U/L (0-50); AST (SGOT) 28 U/L (17-59); Albumin 3.8 g/dl (3.5-5.0); Alkaline Phosphatase 82 U/L (38-126); Blood Urea Nitrogen 27 mg/dl (9-20); Calcium 8.6 mg/dl (8.4-10.2); Carbon Dioxide 28 mmol/L (22-30); Chloride 102 mmol/L (98-107); Estimated Creatinine Clearance 58 ml/min; Glucose 128 mg/dl (70-99); Potassium 4.9 mmol/L (3.5-5.1); Sodium 141 mmol/L (135-145); Total Bilirubin 0.4 mg/dl (0.2-1.3); Total Protein 6.3 g/dl (6.3-8.2); eGFR > 60.00
[2024-01-03 15:24] LABS: INR 2.51; PT 27.1 Sec (11.4-14.6)
[2024-01-03 16:04] LABS: NT-proBNP 9290 pg/ml; Troponin I < 0.012 ng/ml
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
[2024-01-03] MEDS: ULTRAM 50 MG PO (16:29)
[2024-01-03] MEDS: LASIX 20 MG IV (16:33)
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
[2024-01-03] MEDS: ATIVAN 0.5 MG PO (18:44)
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
[2024-01-03] MEDS: XOPENEX 0.63 MG INHALANT SOLUTION INH (21:15)
[2024-01-03] MEDS: COREG 3.125 MG PO (21:16)
[2024-01-03] MEDS: LIPITOR 80 MG PO (21:16)
[2024-01-03] MEDS: DEPAKOTE (12 HR RELEASE) 250 MG PO (21:16)
[2024-01-03] MEDS: ROXICODONE 5 MG PO (21:16)
[2024-01-03] MEDS: MELATONIN 5 MG PO (21:16)
[2024-01-03] MEDS: CLARITIN 10 MG PO (21:16)
[2024-01-03] MEDS: MAG-TAB SR 84 MG PO (21:16)
[2024-01-03] MEDS: COUMADIN 4 MG PO (21:20)
[2024-01-04] VITALS (16 sets, daily range): BP systolic 86–143; BP diastolic 60–118; PULSE 2–140; BMI 31.6
[2024-01-04] MEDS: SYNTHROID 88 MCG PO (04:38)
[2024-01-04 05:13] LABS: Hematocrit 34.8 % (39.0-52.0); Hemoglobin 10.6 g/dL (13.0-18.0); Mean Corp Hgb Conc. 30.5 g/dL (33.0-37.0); Mean Corpuscular Hgb 29.1 pg (27.0-31.0); Mean Corpuscular Volume 95.6 fL (80.0-94.0); Mean Platelet Volume 10.3 fL (7.4-10.4); Platelet Count 176 10^3/uL (130-400); Red Blood Cell Count 3.64 10^6/uL (4.70-6.10); Red Cell Dist. Width 14.6 % (11.5-14.5)
[2024-01-04 05:19] LABS: ALT (SGPT) 20 U/L (0-50); AST (SGOT) 23 U/L (17-59); Albumin 3.4 g/dl (3.5-5.0); Alkaline Phosphatase 81 U/L (38-126); Blood Urea Nitrogen 25 mg/dl (9-20); Calcium 8.6 mg/dl (8.4-10.2); Carbon Dioxide 35 mmol/L (22-30); Chloride 100 mmol/L (98-107); Direct Bilirubin 0.1 mg/dl (0.0-0.4); Estimated Creatinine Clearance 57 ml/min; Glucose 98 mg/dl (70-99); Potassium 4.6 mmol/L (3.5-5.1); Sodium 142 mmol/L (135-145); Total Bilirubin 0.6 mg/dl (0.2-1.3); Total Protein 5.8 g/dl (6.3-8.2); eGFR > 60.00
[2024-01-04] MEDS: ATIVAN 0.5 MG PO ×2 (05:33→09:05)
[2024-01-04] MEDS: PROTONIX 40 MG PO (09:05)
[2024-01-04] MEDS: COREG 3.125 MG PO ×2 (09:05→19:42)
[2024-01-04] MEDS: LIDOCAINE 4% PATCH 1 PATCH TOPICAL (09:05)
[2024-01-04] MEDS: DEPAKOTE (12 HR RELEASE) 250 MG PO ×2 (09:05→19:42)
[2024-01-04] MEDS: LASIX 20 MG IV ×2 (09:06→09:44)
[2024-01-04] MEDS: DESENEX/MITRAZOL/ZEASORB 1 APPLIC TOPICAL ×3 (09:06→19:43)
--- NOTE | 2024-01-04 09:29 | CON.CAR ---
Addendum entered and electronically signed by Dewayne Velez MD 01/04/24 11:16:
I saw and examined the patient.
The CUSTOMER SALES SPECIALIST's note was reviewed and I agree with the note.
Comment:
Jermaine Beaulieu is an 83-year-old male with chronic hypoxic respiratory failure (nocturnal oxygen requirement), permanent atrial fibrillation, HFrEF (LVEF 10%), ICD, NSC lung cancer status post lobectomy with metastasis to spine and left scapula
([facility]), TBI, and chronic pain requiring opioids who presented to the emergency department after a slip and fall at home. In the emergency department he was found to be in atrial fibrillation with RVR. This morning he had a respiratory
decompensation likely due to flash pulmonary edema and is now requiring continuous BiPAP. He is a DNR/DNI and his does not want any further escalation of care.
For his flash pulmonary edema, he has received 80 mg IV Lasix and is now on continuous BiPAP. We will check a follow-up ABG after 30 minutes of BiPAP and can further titrate as needed. He is DNI. Last known LVEF on 12/18/2023 was 15-20%. We will
update an echocardiogram today. In terms of GDMT, his outpatient Entresto is on hold given his tenuous status. If his lactate is elevated, I would also hold his beta-fátima given concern for low output heart failure. Continue warfarin for
permanent atrial fibrillation. His prognosis is guarded. We will continue to follow along and per discussion with his today, there will be no further escalation of care (i.e. inotropes, RHC/LHC).
Original Note:
Consultation
Consultation Request
Date/Time Consultation Requested: 01/04/2024 09:20
Date/Time Consultation Performed: 01/04/2024 09:30
Requesting Provider: Dr. Conklin
Performing Provider: VIGNESH Loza for Dr. Velez
Reason for Consultation: Acute on chronic HFrEF
Medical History
-
Chief Complaint: Slip and fall
History of Present Illness:
Jermaine Beaulieu is an 83-year-old male with chronic hypoxic respiratory failure (nocturnal oxygen requirement), permanent atrial fibrillation, HFrEF (type unknown), ICD, NSC lung cancer status post lobectomy with metastasis to spine and left
scapula ([facility]), TBI, and chronic pain requiring opioids who presented to the emergency department after a slip and fall at home. His witnessed the fall and reports he did not have a head strike. He was also wearing his protective helmet at
the time of the fall. EMS responded for a lift assist and his was planning to decline ER referral however he was tachycardic and tachypneic and she agreed to come to the emergency department for evaluation. CXR consistent with heart failure.
proBNP elevated compared to prior hospitalization. Renal function stable. Cardiology has been asked to consult for HFrEF management.
Presented for SHOVEL OILER. Patient tachypneic, hypoxic, tachycardic and in respiratory distress. He has his eyes closed but is able to nod his head appropriately. He appears to be in flash pulmonary edema. Lopressor 5mg IVP given for RVR. Additional
furosemide given for a total dose of 80mg IV. BiPAP started. VBG pending. updated by primary service. Consideration for dobutamine or milrinone pending discussion with .
Past Medical History
Past Medical History: Arrhythmias (Permanent atrial fibrillation), Cancer ([facility] status post left lobectomy with metastasis), CHF (HFrEF), HTN, Hypercholesterolemia and Other (TBI)
Past Surgical History: Cholecystectomy and Other (Left lobectomy)
Social History
Tobacco: Non-Smoker
Personal:
Living: With Family
Employment: Retired
Family History
Family History: Unable to Obtain
Allergies / Home Medications
Allergy/AdvReac Type Severity Reaction Status Date / Time
pollen extracts Allergy HAYFEVER-NASAL Verified 01/03/24 14:42
CONGESTION
�Medication �Instructions �Recorded �Confirmed �Type
sertraline 100 mg tablet 125 mg PO DAILY@1200 Depression 08/30/20 01/03/24 History
atorvastatin 80 mg tablet 80 mg PO QPM High cholesterol 01/02/22 01/03/24 History
divalproex 250 mg tablet,delayed 250 mg PO BID Neurological 01/02/22 01/03/24 History
release Condition
cholecalciferol (vitamin D3) 25 25 mcg PO DAILY Heart Failure 05/06/23 01/03/24 History
mcg (1,000 unit) tablet
melatonin 5 mg tablet 10 mg PO HS Sleep 05/06/23 01/03/24 History
magnesium 250 mg tablet 250 mg PO Q48H@1800 Supplement 05/07/23 01/03/24 History
fexofenadine 180 mg tablet 180 mg PO QPM Allergies 09/09/23 01/03/24 History
(Dai Allergy)
levothyroxine 88 mcg tablet 88 mcg PO DAILY Thyroid 09/09/23 01/03/24 History
therapeutic multivitamin 1 tab PO DAILY Supplement 09/09/23 01/03/24 History
carvedilol 6.25 mg tablet (Coreg) 6.25 mg PO Q12H Blood Pressure 12/18/23 01/03/24 History
lidocaine 4 % topical patch 1 patch topical DAILYPRN PRN left 12/18/23 01/03/24 History
shoudler, right hip
omeprazole 20 mg tablet,delayed 20 mg PO DAILY Gastrointestinal 12/18/23 01/03/24 History
release Issue
warfarin 4 mg tablet 4 mg PO SUMOTHFRSA@1900 Blood Clot 12/18/23 01/03/24 History
Prevention/Tx
warfarin 4 mg tablet 6 mg PO TUWE@1900 Blood Clot 12/18/23 01/03/24 History
Prevention/Tx
lorazepam 0.5 mg tablet 0.5 mg PO TIDPRN PRN anxiety #20 12/22/23 01/03/24 Rx
tabs
oxycodone 5 mg tablet 5 mg PO HSPRN PRN severe pain #20 12/22/23 01/03/24 Rx
tabs
sacubitril 24 mg-valsartan 26 mg 1 tab PO BID Heart Failure #0 tabs 12/22/23 01/03/24 Rx
tablet (Entresto)
calcium carbonate (Tums) 300 mg PO BIDPRN PRN gerd 01/03/24 01/03/24 History
Review of Systems
-
Unable to obtain full review of systems at this time due to: Acuity
Physical Exam
Vital Signs
Temp Pulse Resp BP Pulse Ox
96.1 F L 90 20 100/71 98
01/04/24 07:15 01/04/24 04:00 01/04/24 04:00 01/04/24 04:00 01/04/24 04:00
Lab Results
01/04/24 04:39
01/04/24 04:39
Troponin I < 0.012 ng/ml 01/03/24 15:26
Uni-T-Cyobqzapnsh Pept 9290 pg/ml 01/03/24 15:26
Physical Exam
General: Well Developed, Well Nourished and Respiratory Distress
HEENT: Normocephalic, Anicteric and Moist Mucous Membranes
Respiratory: Crackles and Rhonchi
Cardiac: S1/S2 and Irregular Rhythm (tachycardia); Negative Peripheral Edema
Breast: Deferred by me
GI: Soft, Non Tender, Non Distended and Normal Bowel Sounds
Rectal: Deferred by Provider
Genito-urinary: No Costovertebral Tender
Musculoskeletal: No Clubbing, No Cyanosis and No Edema
Skin: Warm and Dry
Neuro: Awake, Alert and Oriented (himself)
Hematologic/Lymphatic: No Lymphadenopathy
Psych: Other (restless)
Impression / Plan
-
83M with HFrEF (type unknown), permanent atrial fibrillation (on warfarin), ICD, metastatic NSC lung cancer, TBI, and ambulatory dysfunction with frequent falls presented with a slip and fall at home. He had a recent admission with acute on chronic
HFrEF.
Primary sap bw consultant: Dr. Maria Del Carmen Arauz
Acute on chronic hypoxic respiratory failure, in the setting of acute on chronic HFrEF
Flash pulmonary edema
-Hypoxia, tachypnea, and tachycardia with hypertension - acute requiring SHOVEL OILER, now on BiPAP
-At home, he requires nocturnal oxygen at 1-2 LPM
HFrEF, acute on chronic (EF 15-20%) - type unknown
-Volume overloaded, S/P furosemide 80mg during SHOVEL OILER
-At home, furosemide is as needed, he will now need standing doses
-GDMT as tolerated
-KEVIN/ARB/ARNI: Sacubitril�valsartan on hold due to hypotension
-Beta-fátima: Coreg 3.125 twice daily, consider transition to metoprolol succinate if we need more BP room
-SGLT2: Case management to [facility]
-MRA: Can consider
-ICD: Implanted ([facility])
-There are no plans for ischemic evaluation during this hospitalization
-Trend daily weight, I/O, and BMP with diuresis
-Heart failure education during his hospitalization (please educate , patient has TBI)
Permanent atrial fibrillation
-Rates elevated, we may need to transition from carvedilol to metoprolol succinate
-Oral Anticoagulation: Warfarin, INR 2.51 yesterday, today's INR is pending
-[id number]: Score at least 4 (Heart failure, HTN, age 75 or more)
Hypertension, some agents are on hold to allow for diuresis
ICD, appears to be [place] on CXR
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
Status post abdominal aortic aneurysm repair (2009)
TBI (2014)
Ambulatory dysfunction with frequent falls
SUBJECTIVE:
Records have been requested by his primary sap bw consultant.
DATA:
Transthoracic echocardiogram, 12/18/2023:
Severely reduced left ventricular systolic function. Global hypokinesis, with
apical and inferoseptal akinesis.
LV ejection fraction is 15-20% by Miller's method of discs.
Aortic sclerosis without stenosis.
No prior study available for comparison.
Data Reviewed
-
EKG: Report Reviewed by me (Atrial fibrillation with rapid regular response, PVCs, left axis, rate 109)
Radiology: Report Reviewed by me (CXR: Pulmonary vascular congestion and small bilateral pleural effusions. Chronic right lung scarring and volume loss.)
Medical Tests (Nuc Med, Echo etc): Report Reviewed by me (Prior echocardiogram as above)
Labs: Labs Reviewed by me
Old Records: Requested
[2024-01-04] MEDS: ATIVAN 0.25 MG IV (09:51)
[2024-01-04] MEDS: NSS (PRESERVATIVE FREE) 0.125 ML IV (09:52)
[2024-01-04] MEDS: DESENEX/MITRAZOL/ZEASORB TOPICAL (09:53)
[2024-01-04] MEDS: LOPRESSOR 5 MG IV (10:01)
[2024-01-04] MEDS: LASIX 40 MG IV (10:02)
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
[2024-01-04] MEDS: MORPHINE SULFATE 1 MG IV (10:16)
[2024-01-04 10:17] LABS: B.E. -2.6 mmol/L; HCO3 29.2 mmol/L (21-28); O2 Saturation % 45.2 % (94-98)
[2024-01-04 10:20] LABS: PCO2 92 mmHg (35-48); PO2 39 mmHg (83-108); pH 7.11 (7.35-7.45)
[2024-01-04 10:31] LABS: % Basophils 0.5 % (0-2); % Eosinophils 0.8 % (0-6); % Immature Granulocytes 0.7 % (0-0.5); % Monocytes 9.4 % (1.7-9.3); % Neutrophils 67.6 % (42.2-75.2); Absolute Basophils 0.1 10^3/uL (0-0.2); Absolute Eosinophils 0.2 10^3/uL (0-0.7); Absolute Immature Granulocytes 0.1 10^3/uL (0-0.05); Absolute Lymphocytes 4.4 10^3/uL (1.2-3.4); Absolute Neutrophils 14.2 10^3/uL (1.4-6.5); Hematocrit 41.6 % (39.0-52.0); Hemoglobin 12.6 g/dL (13.0-18.0); Mean Corp Hgb Conc. 30.3 g/dL (33.0-37.0); Mean Corpuscular Hgb 29.5 pg (27.0-31.0); Mean Corpuscular Volume 97.4 fL (80.0-94.0); Mean Platelet Volume 9.8 fL (7.4-10.4); Nucleated Red Blood Cells % 0 % (-); Platelet Count 372 10^3/uL (130-400); Red Blood Cell Count 4.27 10^6/uL (4.70-6.10); Red Cell Dist. Width 14.8 % (11.5-14.5)
[2024-01-04 10:34] LABS: INR 2.12; PT 24.2 Sec (11.4-14.6)
[2024-01-04 10:35] LABS: APTT 49.5 Sec (23.4-35.0)
[2024-01-04 10:42] LABS: Troponin I < 0.012 ng/ml
--- NOTE | 2024-01-04 10:56 | RR ---
Addendum entered by Josee Griggs 01/04/24 14:12:
Pt occasionally awakens and becomes anxious, attempting to pull zambrano out and repeatedly pulling off bipap mask. Dr. Conklin notified, order received for IVP PRN Ativan, administered as ordered, see APR. Pt calm for a period of time, then again anxious
and pulling at tubes. Pulled off bipap mask again, per RT pt can be trialed on 4L NC. 4L NC placed. Sats maintaining at this time.
Original Note:
A Rapid Response was called on this patient, please see Rapid Response form.
Pt received from night warehouse manager. Aox1, anxious. Afib on tele monitor, rates controlled. Pt requesting 'something to chill me out'- per APR pt recently received PRN Dose of Ativan. Dr. Conklin notified via TT, order received for one time PO Ativan,
administered as ordered. Shortly after Dr. Conklin at bedside and pt in respiratory distress. Orders placed by Dr. Conklin for IV Lasix and IV Ativan, administered as ordered. Pt without improvement, remains tachycardic with rates up to 160's, tachypneic
with rates in the 30's, diaphoretic. D/w Dr. Conklin, rapid response called. Additional orders placed by provider. Pt incontinent of urine, migdalia care completed. Zambrano placed with zero output; confirmed 0ml with bladder scan. Family arrived at bedside,
updated by physicians. Awaiting further orders at this time.
[2024-01-04 11:23] LABS: Lactic Acid 1.8 mmol/L (0.7-2.0)
[2024-01-04 11:26] LABS: B.E. 3.3 mmol/L; HCO3 30.2 mmol/L (21-28); O2 Saturation % 91.2 % (94-98); PCO2 56 mmHg (35-48); PO2 66 mmHg (83-108); pH 7.34 (7.35-7.45)
[2024-01-04 11:26] LABS: ALT (SGPT) 26 U/L (0-50); AST (SGOT) 37 U/L (17-59); Albumin 3.7 g/dl (3.5-5.0); Alkaline Phosphatase 100 U/L (38-126); Blood Urea Nitrogen 25 mg/dl (9-20); Calcium 8.5 mg/dl (8.4-10.2); Carbon Dioxide 31 mmol/L (22-30); Chloride 99 mmol/L (98-107); Estimated Creatinine Clearance 48 ml/min; Glucose 242 mg/dl (70-99); Magnesium 1.9 mg/dl (1.6-2.3); Phosphorus 5.5 mg/dl (2.5-4.5); Potassium 4.5 mmol/L (3.5-5.1); Sodium 141 mmol/L (135-145); Total Bilirubin 0.8 mg/dl (0.2-1.3); eGFR 55.19
[2024-01-04] MEDS: ATIVAN 0.5 MG IV ×2 (12:40→23:22)
[2024-01-04] MEDS: NSS (PRESERVATIVE FREE) 0.25 ML IV (12:41)
[2024-01-04] MEDS: ZOLOFT PO ×2 (13:05)
--- NOTE | 2024-01-04 14:32 | CM ---
Patient with Hx metastatic lung CA with lobectomy, TBI with Dx Acute on Chronic Respiratory Failure, Afib RVR, HF, slipped/fell at home. Rapid response today for respiratory distress. O2/BiPAP. Receiving IV Lasix. Zambrano. NPO.
Met with patient, Huma, daughter Morro and son Mani;
Patient was somewhat confused, restless and repeatedly asking to get up to void despite being told by nurse & that zambrano was in place.
Per , the patient resides with his and son in a 1 story house with ramps porch to bedroom and porch to front door.
He is assisted with ADLs for bathing/dressing by his , and ambulates independently using his RW.
DME - RW, shower chair, w/c, lift chair, O2 concentrator HS through [employer]
VN - current with [facility]
Recent [facility]
PCP - Sameer Craft
Pharmacy - [facility]ley [facility]
says she would like the patient to go to [facility] again at d/c.
Spoke with Asmita, [facility]; the patient was there from 12/21 to 01/02/24. Will make referral once seen by PT/OT.
shares that she works at [facility] as the Director of Plating Inspector. She works there about 30 hrs/week. Other family members such as their son Mani and patient's brother assist as caregivers.
Patient will need PT/OT Evals once clinically stable.
Plan referral to [facility] once seen by PT/OT.
[2024-01-04 15:44] LABS: Glucose - Point of Care 88 mg/dl (70-99)
[2024-01-04] MEDS: LIPITOR PO (18:18)
[2024-01-04] MEDS: CLARITIN PO (18:18)
[2024-01-04] MEDS: COUMADIN PO (18:22)
[2024-01-04 18:53] LABS: Glucose - Point of Care 81 mg/dl (70-99)
--- NOTE | 2024-01-04 21:15 | PTCARENOTE ---
Received pt from day shift. Pt ox1 (to self); forgetful and anxious at times. afib on the monitor with occasional PVCs. Pt 96% on 4L NC. VSS. Pt has zambrano catheter that is draining clear yellow urine. Hygiene completed (see worklist). Pt resting in
bed with call sanz in reach.
[2024-01-05] VITALS (18 sets, daily range): BP systolic 91–129; BP diastolic 62–99; PULSE 3–136; O2SAT 97; BMI 30.6
[2024-01-05 00:26] LABS: Glucose - Point of Care 99 mg/dl (70-99)
[2024-01-05] MEDS: ROXICODONE 5 MG PO ×2 (03:37→21:14)
[2024-01-05] MEDS: SYNTHROID 88 MCG PO (05:23)
[2024-01-05 05:49] LABS: Glucose - Point of Care 117 mg/dl (70-99)
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
[2024-01-05] MEDS: ATIVAN 0.5 MG IV ×3 (08:38→22:15)
[2024-01-05] MEDS: NSS (PRESERVATIVE FREE) 0.25 ML IV ×3 (08:39→22:14)
[2024-01-05] MEDS: PROTONIX 40 MG PO (08:39)
[2024-01-05] MEDS: LIDOCAINE 4% PATCH 1 PATCH TOPICAL (08:40)
[2024-01-05] MEDS: COREG 3.125 MG PO (08:40)
[2024-01-05] MEDS: DEPAKOTE (12 HR RELEASE) 250 MG PO ×2 (08:40→19:21)
[2024-01-05] MEDS: DESENEX/MITRAZOL/ZEASORB 1 APPLIC TOPICAL ×2 (08:41→19:22)
[2024-01-05 08:55] LABS: Glycohemoglobin (HgbA1c) 5.9 % (4.0-5.6)
--- NOTE | 2024-01-05 09:20 | PTCARENOTE ---
Patient c/o zambrano- no clear indication to continue- removed will monitor.
[2024-01-05 09:24] LABS: Hematocrit 34.4 % (39.0-52.0); Mean Corpuscular Hgb 29.3 pg (27.0-31.0); Mean Corpuscular Volume 91.7 fL (80.0-94.0); Platelet Count 168 10^3/uL (130-400); Red Blood Cell Count 3.75 10^6/uL (4.70-6.10); Red Cell Dist. Width 14.7 % (11.5-14.5); White Blood Cell Count 9.3 10^3/uL (4.8-10.8)
--- NOTE | 2024-01-05 09:35 | W.PN.CD ---
Today's Communication / Plan
-
Switch carvedilol to metoprolol for better rate control and more blood pressure room to add back GDMT
Start p.o. Lasix 20 mg daily pending a.m. lab
Continue warfarin for anticoagulation
Impression / Plan
-
83M with HFrEF (type unknown), permanent atrial fibrillation (on warfarin), ICD, metastatic NSC lung cancer, TBI, and ambulatory dysfunction with frequent falls presented with a slip and fall at home, brought in by EMS due to tachycardia and
tachypnea. This admission has been complicated by flash pulmonary edema requiring BiPAP, now resolved.
Primary cover cutter machine: Dr. Maria Del Carmen Arauz
HFrEF, acute on chronic (EF 15-20%) - type unknown
-At home, furosemide is as needed, he will now need standing dose. Appears euvolemic; start p.o. Lasix 20 mg daily for maintenance pending a.m. labs.
-GDMT as tolerated
-KEVIN/ARB/ARNI: Sacubitril�valsartan (low dose at home); On hold due to hypotension
-Beta-fátima: Transition carvedilol to metoprolol to give more BP room
-SGLT2: Case management to lizarraga
-MRA: Would not initiate at this time given family's preference to prioritize comfort
-ICD: Implanted ([facility])
-Trend daily weight, I/O, and BMP with diuresis
-Heart failure education during his hospitalization (please educate , patient has TBI)
-Per goals of care discussion with his this admission, there will be no further escalation of care including RHC/LHC, inotropes, central line placement. Patient is DNR/DNI
Acute on chronic hypoxic respiratory failure, in the setting of acute on chronic HFrEF
Flash pulmonary edema, resolved
-Episode of hypoxia, tachypnea, and tachycardia with hypertension on 01/04/2024- acute requiring FILAMENT WOUND PARTS FABRICATOR and continuous BiPAP
-At home, he requires nocturnal oxygen at 1-2 LPM
Permanent atrial fibrillation
-Rates elevated, transition from carvedilol to metoprolol succinate
-Oral Anticoagulation: Warfarin, INR therapeutic
-[id number]: Score at least 4 (Heart failure, HTN, age 75 or more)
Hypertension, some agents are on hold to allow for diuresis
ICD, appears to be [place] on CXR
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
Status post abdominal aortic aneurysm repair (2009)
TBI (2014)
Ambulatory dysfunction with frequent falls
SUBJECTIVE:
Looking much better this morning and breathing feels improved. P.m. Lasix held last night due to low blood pressure. Telemetry notable for atrial fibrillation with heart rates in the 100s to 110s.
DATA:
Transthoracic echocardiogram, 12/18/2023:
Severely reduced left ventricular systolic function. Global hypokinesis, with
apical and inferoseptal akinesis.
LV ejection fraction is 15-20% by Miller's method of discs.
Aortic sclerosis without stenosis.
No prior study available for comparison.
Physical Exam
Vital Signs/Labs
Vital Signs
Temp Pulse Resp BP Pulse Ox
98.8 F 99 25 111/85 95
01/05/24 03:18 01/05/24 08:00 01/05/24 08:00 01/05/24 08:00 01/05/24 08:00
01/04/24 01/05/24 01/06/24
06:59 06:59 06:59
Actual Weight 91.4 kg 88.5 kg
01/05/24 05:49
PT 24.2 Sec (11.4-14.6) H 01/04/24 10:12
INR 2.12 01/04/24 10:12
APTT 49.5 Sec (23.4-35.0) H 01/04/24 10:12
Magnesium 1.9 mg/dl (1.6-2.3) 01/04/24 10:56
01/03/24 01/03/24
14:57 15:26
Bbz-L-Axpapwpxxng Pept Cancelled 3206
LAB Results
01/03/24 01/03/24 01/04/24
14:57 15:26 10:12
Troponin I Cancelled < 0.012 < 0.012
Physical Exam
Constitutional: No acute distress, Comfortable and Confusion
Cardiovascular: Pedal edema is absent, JVD pressure is normal, Rhythm/rate is irregular and Murmur/rub/gallop absent
Respiratory: Respiratory effort normal and Lungs clear to auscul.
Data Reviewed
-
Date of Service: January 05, 2024
Medical Decision Making: Reviewed Test Results, Independent Historian Assessment, Test Interpretation and Review of Case with other Provider
EKG: Tracing Personally Visualized and interpreted
Echo: Report Reviewed by me
Labs: Labs Reviewed by me
[2024-01-05 10:44] LABS: Blood Urea Nitrogen 28 mg/dl (9-20); Calcium 8.4 mg/dl (8.4-10.2); Carbon Dioxide 32 mmol/L (22-30); Chloride 97 mmol/L (98-107); Estimated Creatinine Clearance 47 ml/min; Glucose 69 mg/dl (70-99); Magnesium 1.9 mg/dl (1.6-2.3); Phosphorus 3.7 mg/dl (2.5-4.5); Potassium 4.3 mmol/L (3.5-5.1); Sodium 142 mmol/L (135-145); eGFR 55.19
--- NOTE | 2024-01-05 10:44 | PTOTSP ---
ST Acute Care Evaluation
Pt currently presents with clinical signs of mild oropharyngeal and esophageal dysphagia characterized by prolonged mastication and bolus formation and occasional brief throat clear s/p eructation indicative of possible airway invasion from possible
retrograde flow. Pt also with occasional inconsistent wet vocal/gurgly upper airway that is fleeting in nature.
Recommendations:
- DOWNGRADE to baseline diet of SOFT BITE SIZED SOLIDS and THIN LIQUIDS with meds whole in puree.
- Aspiration precautions: Fully awake, alert, and upright for all PO intake; small bites; single sips; alternate solids liquids; take breaks if experiencing difficulty breathing.
- AUTOMATIC SHIRRING MACHINE OPERATOR to f/u re: diet tolerance and to determine if pt would benefit from an updated instrumental swallow study.
[2024-01-05] MEDS: LASIX 20 MG PO (11:28)
[2024-01-05] MEDS: ZOLOFT 25 MG PO (11:28)
[2024-01-05] MEDS: ZOLOFT 100 MG PO (11:28)
[2024-01-05 12:05] LABS: INR 2.76; PT 29.1 Sec (11.4-14.6)
[2024-01-05] MEDS: XOPENEX 0.63 MG INHALANT SOLUTION INH ×2 (12:25→19:54)
[2024-01-05] MEDS: CLARITIN 10 MG PO (17:27)
[2024-01-05] MEDS: LIPITOR 80 MG PO (17:27)
[2024-01-05] MEDS: MAG-TAB SR 84 MG PO (17:34)
[2024-01-05] MEDS: COUMADIN 6 MG PO (17:34)
--- NOTE | 2024-01-05 19:07 | PTCARENOTE ---
OOB all day, stands to reposition with 2 heavy assist with walker. Oriented to self, anxious and calling out at times when family not present- reorients to best of his ability. IV Ativan given x2 this shift . STEPHANIE insp. wheeze and c/o short of
breath this afternoon- prn neb given by RT with relief. Constant misplacing NC- sao2 on RAIR is 86-88% with 3L 95%. Appetite fair, +BM this shift. A 3rd condom cath #25 now intact- 2 others fell off and had small-mod incontinence otherwise
300ml urine this shift since zambrano removed.
[2024-01-05] MEDS: TOPROL XL 25 MG PO (19:21)
--- NOTE | 2024-01-05 19:48 | PTCARENOTE ---
pt received from previous rn- aox2- able to answer most questions appropriately, follows commands and able to turn self in bed. bed alarm on and functioning, call sanz within reach, demonstrated proper use. afib on monitor, tachypneic at times,
remains on nasal cannula. pm care provided. bladder scanned for 0. all safety precautions in place.
--- NOTE | 2024-01-05 21:11 | PTCARENOTE ---
pt with increased tachypnea, however pt denies lydia- samah oxygen tank filler at bedside- cxr ordered.
[2024-01-05] MEDS: MELATONIN 5 MG PO (21:14)
--- NOTE | 2024-01-05 22:10 | PTCARENOTE ---
per BRUSHER Katrin- ordered to give prn ativan now.
[2024-01-06] VITALS (22 sets, daily range): BP systolic 81–129; BP diastolic 53–95; PULSE 3–102; BMI 30.1
[2024-01-06] MEDS: SYNTHROID 88 MCG PO (05:16)
[2024-01-06 05:39] LABS: Hemoglobin 10.3 g/dL (13.0-18.0); Mean Corp Hgb Conc. 32.2 g/dL (33.0-37.0); Mean Corpuscular Hgb 29.9 pg (27.0-31.0); Mean Platelet Volume 9.7 fL (7.4-10.4); Platelet Count 143 10^3/uL (130-400); Red Blood Cell Count 3.44 10^6/uL (4.70-6.10); Red Cell Dist. Width 14.7 % (11.5-14.5); White Blood Cell Count 6.4 10^3/uL (4.8-10.8)
--- NOTE | 2024-01-06 05:49 | PTCARENOTE ---
pt tolerated bipap for approx 4 hours over night. full bed bath and linen change provided.
[2024-01-06 05:51] LABS: INR 2.73; PT 28.9 Sec (11.4-14.6)
[2024-01-06 06:09] LABS: Blood Urea Nitrogen 34 mg/dl (9-20); Calcium 8.4 mg/dl (8.4-10.2); Carbon Dioxide 34 mmol/L (22-30); Chloride 99 mmol/L (98-107); Estimated Creatinine Clearance 47 ml/min; Glucose 113 mg/dl (70-99); Magnesium 1.9 mg/dl (1.6-2.3); Phosphorus 3.7 mg/dl (2.5-4.5); Sodium 140 mmol/L (135-145); eGFR 55.19
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
[2024-01-06] MEDS: PROTONIX 40 MG PO (08:48)
[2024-01-06] MEDS: LIDOCAINE 4% PATCH 1 PATCH TOPICAL (08:49)
[2024-01-06] MEDS: DEPAKOTE (12 HR RELEASE) 250 MG PO ×2 (08:49→20:31)
[2024-01-06] MEDS: LASIX 20 MG PO (08:49)
[2024-01-06] MEDS: DESENEX/MITRAZOL/ZEASORB 1 APPLIC TOPICAL ×2 (08:49→20:31)
[2024-01-06] MEDS: TOPROL XL 25 MG PO ×2 (08:49→11:14)
[2024-01-06] MEDS: SENOKOT-S 1 TABLET PO ×2 (09:23→20:31)
[2024-01-06] MEDS: ATIVAN 0.5 MG PO ×3 (09:23→21:51)
[2024-01-06] MEDS: MYLICON 80 MG PO (09:23)
--- NOTE | 2024-01-06 10:03 | W.PN.CD ---
Addendum entered and electronically signed by Manuel Riddle MD 01/06/24 12:08:
I saw and examined the patient.
The CANDY CATCHER's note was reviewed and I agree with the note.
Comment: Increase metoprolol
GDMT as able
Original Note:
Today's Communication / Plan
-
-increase metoprolol and monitor
-lizarraga SGLT2
Impression / Plan
-
83M with HFrEF (type unknown), permanent atrial fibrillation (on warfarin), ICD, metastatic NSC lung cancer, TBI, and ambulatory dysfunction with frequent falls presented with a slip and fall at home, brought in by EMS due to tachycardia and
tachypnea. This admission has been complicated by flash pulmonary edema requiring BiPAP, now resolved.
Primary potato seed cutter: Dr. Maria Del Carmen Arauz
HFrEF, acute on chronic (EF 15-20%) - type unknown
-At home, furosemide is as needed. He is now transitioned to lasix 20 mg PO daily.
-GDMT as tolerated
-KEVIN/ARB/ARNI: Sacubitril�valsartan (low dose at home); On hold due to hypotension
-Beta-fátima: Transitioned from carvedilol to metoprolol to give more BP room
-SGLT2: Case management to lizarraga- will place consult for this
-MRA: Would not initiate at this time given family's preference to prioritize comfort
-ICD: Implanted ([facility])
-Trend daily weight, I/O, and BMP with diuresis
-Heart failure education during his hospitalization (please educate , patient has TBI)
-Per goals of care discussion with his this admission, there will be no further escalation of care including RHC/LHC, inotropes, central line placement. Patient is DNR/DNI
Acute on chronic hypoxic respiratory failure, in the setting of acute on chronic HFrEF
Flash pulmonary edema, resolved
-Episode of hypoxia, tachypnea, and tachycardia with hypertension on 01/04/2024- acute requiring HADOOP ANALYST and continuous BiPAP
-At home, he requires nocturnal oxygen at 1-2 LPM
Permanent atrial fibrillation
-Rates elevated, transition from carvedilol to metoprolol succinate- will increase dosing
-Oral Anticoagulation: Warfarin, INR therapeutic
-[id number]: Score at least 4 (Heart failure, HTN, age 75 or more)
Hypertension, some agents are on hold to allow for diuresis
ICD, appears to be [place] on CXR
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
Status post abdominal aortic aneurysm repair (2009)
TBI (2014)
Ambulatory dysfunction with frequent falls
SUBJECTIVE:
No complaints- denies CP, palpitations, SOB
DATA:
Transthoracic echocardiogram, 12/18/2023:
Severely reduced left ventricular systolic function. Global hypokinesis, with
apical and inferoseptal akinesis.
LV ejection fraction is 15-20% by Miller's method of discs.
Aortic sclerosis without stenosis.
No prior study available for comparison.
Physical Exam
Vital Signs/Labs
Vital Signs
Temp Pulse Resp BP Pulse Ox
98.1 F 88 26 112/89 97
01/06/24 07:46 01/06/24 06:00 01/06/24 06:00 01/06/24 06:00 01/06/24 06:00
01/05/24 01/06/24 01/07/24
06:59 06:59 06:59
Actual Weight 88.5 kg 87 kg
01/06/24 05:13
01/06/24 05:13
PT 28.9 Sec (11.4-14.6) H 01/06/24 05:13
INR 2.73 01/06/24 05:13
APTT 49.5 Sec (23.4-35.0) H 01/04/24 10:12
Magnesium 1.9 mg/dl (1.6-2.3) 01/06/24 05:13
01/03/24 01/03/24
14:57 15:26
Ilr-C-Bfkwyukxfpb Pept Cancelled [id number]
LAB Results
01/03/24 01/03/24 01/04/24
14:57 15:26 10:12
Troponin I Cancelled < 0.012 < 0.012
Physical Exam
Constitutional: No acute distress
EENT: Anicteric
Cardiovascular: Rhythm/rate is irregular
Respiratory: Respiratory effort normal and Lungs clear to auscul.
Neuro/Psych: Alert
Data Reviewed
-
Date of Service: January 06, 2024
EKG: Other (AFIB elevated HR)
[2024-01-06] MEDS: ZOLOFT 25 MG PO (11:15)
[2024-01-06] MEDS: ZOLOFT 100 MG PO (11:15)
--- NOTE | 2024-01-06 12:24 | PTCARENOTE ---
AAO this am -yells out on occasion but will also ring call sanz at times. Complaining of bloating abdominal pain this am- senna and simethicone given- had 1 large soft loose bm after and 1 incontinence liquid in chair- one more time on bsc. L base
crackles with out resp distress. 3L NC 97%- desats when tubing misplaced or removed (88% on RAIR)--O2 tubing difficult to keep in place shaved and tape to secure. PRN Ativan given this am for anxiety. Extra dose Toprol given as ordered - AF on
tele rates 100- 120s after that dose. Report to Loly- transferred on tele to [phone].
--- NOTE | 2024-01-06 16:21 | CM ---
Patient with Hx metastatic lung CA with lobectomy, TBI, slipped/fell at home. O2 3L/BiPAP HS. Diet advanced. PT/OT recommend skilled rehab. Patient transferred from IMU to 3.
CM Consult: Newman check Jardiance and Farxiga 10mg
Per [facility] ambulatory orders: cost for each med is $130.27/month.
Spoke with patient's Huma;
relayed cost of meds and states she is okay with cost, however says patient was on Farxiga before and there was some issue with him taking it so it was discontinued. She wants to talk with Cardiology about the meds---> message sent to Maxine
Keren CARLISLE.
Message with Dr Conklin as to whether patient will need BiPAP ongoing at SNF---> He might not. has been weaning off BIPAP, not tolerating the full night. likely will need oxygen supplementation on discharge though. We'll see.
Spoke with Asmita, s Jer[facility] Sol[facility]; she will review the referral paperwork and likely accept. The ph for report [phone], fax [phone]. Asmita was apprised that patient may need BiPAP at [facility].
Plan follow up with Jerrica Solis re; acceptance.
Plan follow patient's O2/BiPAP needs for SNF.
--- NOTE | 2024-01-06 16:34 | W.PN.UPDATE ---
Update Note
Progress Note Update
I spoke with patient's who reported that patient had an issue with Farxiga in the past (she is not sure what) and it was discontinued. Therefore, we will not start Jardiance or Farxiga at this time. They have follow-up with patient's usual
anthropometrist in about 2 weeks and will review at that visit.
[2024-01-06] MEDS: COUMADIN 6 MG PO (17:59)
[2024-01-06] MEDS: CLARITIN 10 MG PO (18:00)
[2024-01-06] MEDS: LIPITOR 80 MG PO (18:00)
[2024-01-06] MEDS: TOPROL XL 50 MG PO (20:31)
[2024-01-07] VITALS (8 sets, daily range): BP systolic 116–142; BP diastolic 69–88; PULSE 106; O2SAT 97; BMI 30.4
[2024-01-07] MEDS: ATIVAN 0.5 MG PO ×3 (02:49→21:51)
[2024-01-07] MEDS: SYNTHROID 88 MCG PO (05:31)
[2024-01-07 06:24] LABS: Hematocrit 36.6 % (39.0-52.0); Hemoglobin 11.5 g/dL (13.0-18.0); Mean Corp Hgb Conc. 31.4 g/dL (33.0-37.0); Mean Corpuscular Hgb 29.3 pg (27.0-31.0); Mean Corpuscular Volume 93.4 fL (80.0-94.0); Platelet Count 161 10^3/uL (130-400); Red Blood Cell Count 3.92 10^6/uL (4.70-6.10); Red Cell Dist. Width 14.6 % (11.5-14.5)
[2024-01-07 06:34] LABS: INR 3.24; PT 33.4 Sec (11.4-14.6)
[2024-01-07 06:45] LABS: Blood Urea Nitrogen 30 mg/dl (9-20); Calcium 8.9 mg/dl (8.4-10.2); Carbon Dioxide 35 mmol/L (22-30); Chloride 99 mmol/L (98-107); Estimated Creatinine Clearance 47 ml/min; Glucose 150 mg/dl (70-99); Magnesium 1.9 mg/dl (1.6-2.3); Phosphorus 3.9 mg/dl (2.5-4.5); Potassium 3.7 mmol/L (3.5-5.1); Sodium 144 mmol/L (135-145); eGFR 55.19
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
[2024-01-07] MEDS: LIDOCAINE 4% PATCH 1 PATCH TOPICAL (08:51)
[2024-01-07] MEDS: DESENEX/MITRAZOL/ZEASORB 1 APPLIC TOPICAL ×2 (08:51→20:28)
[2024-01-07] MEDS: TOPROL XL 50 MG PO ×2 (08:51→20:29)
[2024-01-07] MEDS: LASIX 20 MG PO (08:51)
[2024-01-07] MEDS: SENOKOT-S 1 TABLET PO ×2 (08:51→20:29)
[2024-01-07] MEDS: PROTONIX 40 MG PO (08:51)
[2024-01-07] MEDS: DEPAKOTE (12 HR RELEASE) 250 MG PO ×2 (08:51→20:29)
--- NOTE | 2024-01-07 09:50 | W.PN.CD ---
Today's Communication / Plan
-
continue toprol and monitor rates ( dose increased yesterday)
entresto had been held for low BP. BP appears table. will give a litte valsartan and monitor BP and then can try to transition back to Entresto if BP tolerates
Impression / Plan
-
83M with HFrEF (type unknown), permanent atrial fibrillation (on warfarin), ICD, metastatic NSC lung cancer, TBI, and ambulatory dysfunction with frequent falls presented with a slip and fall at home, brought in by EMS due to tachycardia and
tachypnea. This admission has been complicated by flash pulmonary edema requiring BiPAP, now resolved.
Primary learning facilitator: Dr. Maria Del Carmen Arauz
HFrEF, acute on chronic (EF 15-20%) - type unknown
-At home, furosemide is as needed. He is now transitioned to lasix 20 mg PO daily.
-GDMT as tolerated
-KEVIN/ARB/ARNI: Sacubitril�valsartan (low dose at home); On hold due to hypotension on admit. BP improved. will add low dose valsartan and if tolerated would then transiti on back to Entresto
-Beta-fátima: Transitioned from carvedilol to metoprolol to give more BP room
-SGLT2: Case management to lizarraga- will place consult for this
-MRA: Would not initiate at this time given family's preference to prioritize comfort
-ICD: Implanted ([facility])
-Trend daily weight, I/O, and BMP with diuresis
-Heart failure education during his hospitalization (please educate , patient has TBI)
-Per goals of care discussion with his this admission, there will be no further escalation of care including RHC/LHC, inotropes, central line placement. Patient is DNR/DNI
Acute on chronic hypoxic respiratory failure, in the setting of acute on chronic HFrEF
Flash pulmonary edema, resolved
-Episode of hypoxia, tachypnea, and tachycardia with hypertension on 01/04/2024- acute requiring HAND STITCHER and continuous BiPAP
-At home, he requires nocturnal oxygen at 1-2 LPM
- monitor weight stable
Permanent atrial fibrillation
-Rates elevated, transition from carvedilol to metoprolol succinate- will increase dosing
-Oral Anticoagulation: Warfarin, INR therapeutic
-[id number]: Score at least 4 (Heart failure, HTN, age 75 or more)
ICD, appears to be [place] on CXR
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
Status post abdominal aortic aneurysm repair (2009)
TBI (2014)
Ambulatory dysfunction with frequent falls
SUBJECTIVE:
No complaints- denies CP, palpitations, on O2 . appears a littel sob after speeaking
DATA:
Transthoracic echocardiogram, 12/18/2023:
Severely reduced left ventricular systolic function. Global hypokinesis, with
apical and inferoseptal akinesis.
LV ejection fraction is 15-20% by Miller's method of discs.
Aortic sclerosis without stenosis.
No prior study available for comparison.
Physical Exam
Vital Signs/Labs
Vital Signs
Temp Pulse Resp BP Pulse Ox
97.7 F 105 18 118/77 98
01/07/24 07:40 01/07/24 08:51 01/07/24 07:40 01/07/24 08:51 01/07/24 07:40
01/06/24 01/07/24 01/08/24
06:59 06:59 06:59
Actual Weight 87 kg 88.082 kg
01/07/24 05:53
01/07/24 05:54
PT 33.4 Sec (11.4-14.6) H 01/07/24 05:54
INR 3.24 01/07/24 05:54
APTT 49.5 Sec (23.4-35.0) H 01/04/24 10:12
Magnesium 1.9 mg/dl (1.6-2.3) 01/07/24 05:54
01/03/24 01/03/24
14:57 15:26
Mqj-C-Iwsbpukbdej Pept Cancelled [id number]
LAB Results
01/04/24
10:12
Troponin I < 0.012
Physical Exam
Constitutional: No acute distress
Cardiovascular: Rhythm/rate is irregular
Respiratory: Other (decreased at bases. no wheeze)
GI: Soft and Non tender
Neuro/Psych: Alert
Data Reviewed
-
Date of Service: January 07, 2024
Medical Decision Making: Reviewed Test Results
Echo: Report Reviewed by me
Medical Tests (PFT, Pathology etc): Report Reviewed by me
Labs: Labs Reviewed by me
[2024-01-07] MEDS: ZOLOFT 25 MG PO (11:04)
[2024-01-07] MEDS: ZOLOFT 100 MG PO (11:04)
[2024-01-07] MEDS: DIOVAN 20 MG PO (11:04)
[2024-01-07] MEDS: XOPENEX 0.63 MG INHALANT SOLUTION INH (13:56)
--- NOTE | 2024-01-07 15:04 | CM ---
Plan: Discharge to [facility] when medically stable
Per SNF liaison, bed will be available on Thursday. Attending notified via text
[2024-01-07] MEDS: LIPITOR 80 MG PO (17:08)
[2024-01-07] MEDS: MAG-TAB SR 84 MG PO (17:08)
[2024-01-07] MEDS: CLARITIN 10 MG PO (17:13)
[2024-01-07] MEDS: ROXICODONE 5 MG PO (17:49)
[2024-01-07] MEDS: MYLICON 80 MG PO (20:29)
--- NOTE | 2024-01-07 20:59 | CON.ORS ---
Consultation - Oral Surgery
Subjective
83M with PMH afib on warfarin, HFrEF, metastatic lung cancer, TBI who was admitted after a slip and fall at home. Consult for a loose front tooth that is concerning for an aspiration risk. The patient's stated that he has had multiple dental
appointments to address the tooth which needed to be cancelled due to hospitalizations. The tooth makes eating difficult.
Past Medical History
Past Medical History: Arrhythmia, Cancer, CHF and Other (TBI)
Past Surgical History: Other (Lobectomy)
Alcohol: None
Tobacco: Non-smoker
Medications / Allergies
Allergies
Allergy/AdvReac Type Severity Reaction Status Date / Time
pollen extracts Allergy HAYFEVER-NASAL Verified 01/03/24 14:42
CONGESTION
Active Medications
Generic Name Dose Route Start Last Admin
Trade Name Freq PRN Reason Stop Dose Admin
Atorvastatin Calcium 80 mg 01/03/24 19:27 01/07/24 17:08
Atorvastatin (Lipitor) 80 Mg Tablet PO 01/31/24 19:26 80 mg
QPM RADHA Administration
Dextrose 12.5 grams 01/04/24 14:39
Dextrose 50% (0.5 Grams/Ml) 50 Ml Syringe IV 02/01/24 14:38
[id number] PRN
hypoglycemia
Protocol
Divalproex Sodium 250 mg 01/03/24 20:00 01/07/24 20:29
Divalproex 250 Mg Delayed Release (12 Hr) Tablet PO 01/31/24 19:59 250 mg
BID RADHA Administration
Furosemide 20 mg 01/05/24 11:00 01/07/24 08:51
Furosemide 20 Mg Tablet PO 02/02/24 10:59 20 mg
DAILY RADHA Administration
Glucagon 1 mg 01/04/24 14:39
Glucagon 1 Mg Vial IM 02/01/24 14:38
PRN PRN
hypoglycemia
Protocol
Levalbuterol HCl 0.63 mg 01/03/24 20:38 01/07/24 13:56
Levalbuterol 0.63 Mg/3 Ml Ampul INH 0.63 mg
R Q6HPRN PRN Administration
sob or wheezing
Protocol
Levothyroxine Sodium 88 mcg 01/04/24 06:00 01/07/24 05:31
Levothyroxine 88 Mcg Tablet PO 02/01/24 05:59 88 mcg
DAILY@0600 RADHA Administration
Lidocaine 1 patch 01/04/24 08:00 01/07/24 08:51
Lidocaine 4% Topical Patch TOPICAL 02/01/24 07:59 1 patch
DAILY RADHA Administration
Protocol
Loratadine 10 mg 01/03/24 20:00 01/07/24 17:13
Loratadine 10 Mg Tablet PO 01/31/24 19:59 10 mg
QPM RADHA Administration
Lorazepam 0.5 mg 01/06/24 08:50 01/07/24 17:50
Lorazepam 0.5 Mg Tablet PO 02/03/24 08:49 0.5 mg
TIDPRN PRN Administration
anxiety
Lorazepam 0.5 mg 01/06/24 08:50 01/06/24 21:51
Lorazepam 0.5 Mg Tablet PO 02/03/24 08:49 0.5 mg
HSPRN PRN Administration
sleep
Magnesium 84 mg 01/05/24 18:00 01/07/24 17:08
Magnesium Lactate 84 Mg Tablet PO 02/02/24 17:59 84 mg
Q48H RADHA Administration
Metoprolol Succinate 50 mg 01/06/24 20:00 01/07/24 20:29
Metoprolol 50 Mg Extended Release Tablet PO 02/03/24 19:59 50 mg
BID RADHA Administration
Miconazole Nitrate 0 applic 01/04/24 08:00 01/07/24 20:28
Miconazole Powder Bottle TOPICAL 02/01/24 07:59 1 applic
BID RADHA Administration
Miconazole Nitrate 0 applic 01/03/24 20:12 01/04/24 09:07
Miconazole Powder Bottle TOPICAL 01/31/24 20:11 1 applic
BIDPRN PRN Administration
RASH
Oxycodone HCl 5 mg 01/06/24 08:58 01/07/24 17:49
Oxycodone 5 Mg Regular Release Tablet PO 01/20/24 08:56 5 mg
HSPRN PRN Administration
moderate severe pain
Pantoprazole Sodium 40 mg 01/04/24 08:00 01/07/24 08:51
Pantoprazole 40 Mg Delayed Release Tablet PO 02/01/24 07:59 40 mg
DAILY RADHA Administration
Patch Removal 0 patch 01/04/24 20:00 01/07/24 20:28
Remove Lidocaine Patch REMOVE 02/01/24 19:59 1 patch
DAILY@2000 RADHA Administration
Senna/Docusate Sodium 1 tablet 01/06/24 09:00 01/07/24 20:29
Docusate W/Senna (Miladis-Colace) Tablet PO 02/03/24 08:59 1 tablet
BID RADHA Administration
Sertraline HCl 100 mg 01/04/24 12:00 01/07/24 11:04
Sertraline 100 Mg Tablet PO 02/01/24 11:59 100 mg
DAILY@1200 RADHA Administration
Sertraline HCl 25 mg 01/04/24 12:00 01/07/24 11:04
Sertraline 25 Mg Tablet PO 02/01/24 11:59 25 mg
DAILY@1200 RADHA Administration
Simethicone 80 mg 01/06/24 08:54 01/07/24 20:29
Simethicone 80 Mg Chewable Tablet PO 02/03/24 08:53 80 mg
QIDPRN PRN Administration
bloating/gas/discomfort
Sodium Chloride 0 flush 01/03/24 19:00
Sodium Chloride 0.9% (Flush) Syringe IV 01/31/24 18:59
PER PROTOCOL RADHA
Valsartan 20 mg 01/07/24 10:00 01/07/24 11:04
Valsartan 40 Mg Tablet PO 02/04/24 09:59 20 mg
DAILY RADHA Administration
Warfarin Sodium 4 mg 01/03/24 19:27 01/04/24 18:22
Warfarin 4 Mg Tablet PO 01/08/24 19:26 Not Given
SUMOTHFRSA@1900 RADHA
Warfarin Sodium 6 mg 01/05/24 19:00 01/06/24 17:59
Warfarin 3 Mg Tablet PO 01/10/24 18:59 6 mg
TUWE@1900 [facility] Administration
Review of Systems
Constitutional: Reports No Symptoms
ENT: Reports Tooth Pain
Vital Signs
Temp Pulse Resp BP Pulse Ox
36.8 C 134 20 116/69 96
01/07/24 19:34 01/07/24 20:29 01/07/24 19:34 01/07/24 20:29 01/07/24 19:34
Physical Exam
General: Awake, Alert, Oriented x 3 and Not in Acute Distress
Extra-oral Exam: Other (No E/O swelling or LAD. Normal TMJ ROM and MOHAN)
Intra-oral Exam: Other (Mobility of all anterior maxillary dentition. Grade 3 Mobility of tooth #9 with no surrounding bone and only soft tissue attachment)
Assessment / Plan
83M with PMH afib on warfarin (INR 3.24 today), HFrEF, lung cancer, TBI consulted for evaluation of tooth #9 for aspiration risk. The tooth is grossly mobile and is an aspiration risk. Consent was obtained from the patient and his and it was
removed with gauze. The site was packed with a collagen plug and closed with 3-0 CGS. Hemostasis was achieved with gauze pressure. The patient and his are aware of additional dental needs that will need to be addressed as an outpatient
- Continue regular oral hygiene
- Bite on gauze if bleeding recurs
- Follow-up with general dentist as an outpatient
Data Reviewed
Labs: Labs Reviewed by me
[2024-01-08] VITALS (7 sets, daily range): BP systolic 96–131; BP diastolic 59–94; PULSE 108; O2SAT 98; BMI 29.6
[2024-01-08] MEDS: ATIVAN 0.5 MG PO ×4 (01:15→22:29)
[2024-01-08] MEDS: MYLICON 80 MG PO ×2 (06:45→16:03)
[2024-01-08] MEDS: PROTONIX 40 MG PO (08:01)
[2024-01-08] MEDS: LIDOCAINE 4% PATCH 1 PATCH TOPICAL (08:01)
[2024-01-08] MEDS: SENOKOT-S 1 TABLET PO ×2 (08:02→20:32)
[2024-01-08] MEDS: DIOVAN 20 MG PO (08:02)
[2024-01-08] MEDS: LASIX 20 MG PO (08:02)
[2024-01-08] MEDS: TOPROL XL 50 MG PO ×2 (08:02→20:36)
[2024-01-08] MEDS: DEPAKOTE (12 HR RELEASE) 250 MG PO ×2 (08:02→20:35)
[2024-01-08] MEDS: DESENEX/MITRAZOL/ZEASORB 1 APPLIC TOPICAL ×2 (08:04→20:38)
[2024-01-08] MEDS: SYNTHROID 88 MCG PO (08:05)
[2024-01-08 08:21] LABS: INR 3.21; PT 32.7 Sec (11.4-14.6)
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
--- NOTE | 2024-01-08 09:05 | W.PN.CD ---
Today's Communication / Plan
-
-Continue lasix 20 mg PO daily.
-Sacubitril�valsartan discontinued secondary to hypotension; started on low-dose of valsartan 20 mg daily--continue.
-Continue Toprol-XL 50 mg twice daily.
-No further cardiac recommendations at this time; outpatient follow-up with his Primary Video Production Intern: Dr. Maria Del Carmen Arauz.
Impression / Plan
-
83M with HFrEF (type unknown), permanent atrial fibrillation (on warfarin), ICD, metastatic NSC lung cancer, TBI, and ambulatory dysfunction with frequent falls presented with a slip and fall at home, brought in by EMS due to tachycardia and
tachypnea. This admission has been complicated by flash pulmonary edema requiring BiPAP, now resolved.
Primary beverage inspection machine tender: Dr. Maria Del Carmen Arauz
HFrEF, acute on chronic (EF 15-20%) - type unknown
-Continue lasix 20 mg PO daily.
-GDMT as tolerated
-KEVIN/ARB/ARNI: Sacubitril�valsartan discontinued secondary to hypotension; started on low-dose of valsartan 20 mg daily--continue.
-Beta-fátima: Transitioned from carvedilol to metoprolol to give more BP room. Continue Toprol-XL 50 mg twice daily.
-SGLT2: Case management to [facility]- will place consult for this
-MRA: Would not initiate at this time given family's preference to prioritize comfort
-ICD: Implanted ([place])
-Poor candidate for aggressive cardiac measures; maintain conservative cardiac management overall. Patient is DNR/DNI
Acute on chronic hypoxic respiratory failure, in the setting of acute on chronic HFrEF
-Flash pulmonary edema, resolved
-Episode of hypoxia, tachypnea, and tachycardia with hypertension on 01/04/2024- acute requiring SERVER ADMINISTRATOR and continuous BiPAP
-At home, he requires nocturnal oxygen at 1-2 LPM
- monitor weight stable
Permanent atrial fibrillation
-Heart rates fairly controlled; continue Toprol-XL 50 mg twice daily.
-Oral Anticoagulation: Warfarin, INR therapeutic
-[id number]: Score at least 4 (Heart failure, HTN, age 75 or more)
ICD, appears to be [place] on CXR
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
Status post abdominal aortic aneurysm repair (2009)
TBI (2014)
Ambulatory dysfunction with frequent falls
SUBJECTIVE:
No major events overnight. No cardiac complaints this a.m.
DATA:
Transthoracic echocardiogram, 12/18/2023:
Severely reduced left ventricular systolic function. Global hypokinesis, with
apical and inferoseptal akinesis.
LV ejection fraction is 15-20% by Miller's method of discs.
Aortic sclerosis without stenosis.
No prior study available for comparison.
Physical Exam
Vital Signs/Labs
Vital Signs
Temp Pulse Resp BP Pulse Ox
98.7 F 89 19 121/74 98
01/08/24 07:35 01/08/24 08:02 01/08/24 07:35 01/08/24 08:02 01/08/24 07:35
01/07/24 01/08/24 01/09/24
06:59 06:59 06:59
Actual Weight 88.082 kg 85.757 kg
01/07/24 05:53
01/07/24 05:54
PT 32.7 Sec (11.4-14.6) H 01/08/24 07:09
INR 3.21 01/08/24 07:09
APTT 49.5 Sec (23.4-35.0) H 01/04/24 10:12
Magnesium 1.9 mg/dl (1.6-2.3) 01/07/24 05:54
01/03/24 01/03/24
14:57 15:26
[id number] Pept Cancelled [id number]
Physical Exam
Constitutional: No acute distress
EENT: Anicteric
Cardiovascular: Pedal edema is absent, Systolic murmur absent, Rhythm/rate is irregular and S1S2 is normal
Respiratory: Respiratory effort normal and Lungs clear to auscul.
GI: Soft
Neuro/Psych: Alert
Other: Skin (Warm)
Data Reviewed
-
Date of Service: January 08, 2024
EKG: Tracing Personally Visualized and interpreted (Telemetry: A-fib)
Labs: Labs Reviewed by me
[2024-01-08] MEDS: ZOLOFT 25 MG PO (13:32)
[2024-01-08] MEDS: ZOLOFT 100 MG PO (13:32)
--- NOTE | 2024-01-08 14:07 | CM ---
Addendum entered by Marie Henderson 01/08/24 14:50:
Spoke with patient and his
IMM benefit explained; form signed @ 1430
Original Note:
Plan: discharge to [facility] tomorrow
Report # [phone]
[2024-01-08] MEDS: BenGay-Like 1 APPLIC TOPICAL ×2 (16:03→20:37)
[2024-01-08] MEDS: LIPITOR 80 MG PO (17:22)
[2024-01-08] MEDS: CLARITIN 10 MG PO (17:22)
[2024-01-08] MEDS: COUMADIN 4 MG PO (20:33)
[2024-01-09] MEDS: XOPENEX 0.63 MG INHALANT SOLUTION INH
[2024-01-09 06:00] VITALS: BMI 29.9
[2024-01-09] MEDS: SYNTHROID 88 MCG PO (06:31)
[2024-01-09 06:43] LABS: INR 2.55; PT 27.4 Sec (11.4-14.6)
[2024-01-09 07:34] VITALS: BP 125/82
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
[2024-01-09] MEDS: DEPAKOTE (12 HR RELEASE) 250 MG PO (09:14)
[2024-01-09] MEDS: SENOKOT-S PO (09:16)
[2024-01-09] MEDS: PROTONIX 40 MG PO (09:17)
[2024-01-09] MEDS: DESENEX/MITRAZOL/ZEASORB 1 APPLIC TOPICAL (09:17)
[2024-01-09] MEDS: BenGay-Like 1 APPLIC TOPICAL (09:21)
[2024-01-09] MEDS: DIOVAN 20 MG PO (09:22)
[2024-01-09] MEDS: TOPROL XL 50 MG PO (09:22)
[2024-01-09] MEDS: LASIX 20 MG PO (09:23)
[2024-01-09] MEDS: LIDOCAINE 4% PATCH 1 PATCH TOPICAL (09:24)
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
[2024-01-09] MEDS: ZOLOFT 25 MG PO (12:24)
[2024-01-09] MEDS: ZOLOFT 100 MG PO (12:24)
[2024-01-09 15:14] VITALS: BP 102/71
--- NOTE | 2024-01-11 09:53 | W.HF.CON ---
Heart Failure
- LV Function
Left ventricular function study result: LV Ejection fraction </= 35% (ECHO 12/18/23)
Ejection Fraction Percentage: 15-20
- ARNI
Patient already on ARNI: No
Heart Failure ARNI Contraindication: Hypotension
- ACEI/ARB
Patient already on ACEI/ARB: Yes
- Beta Marcelino
Patient already on Evidence Based Beta Marcelino: Yes
- Mineralocorticord Receptor Antagonist
Patient already on MRA: No
Heart Failure MRA Contraindication: Hypotension
- SGLT-2 Inhibitor
Patient already on SGLT-2 Inhibitor: No
Heart Failure SGLT-2 Inhibitor Contraindication: Patient Refusal
- Afib Anticoagulation
Patient already on Anticoagulation for Afib: Yes
- NYHA CHF Classification
NYHA CHF Classification Level: Class III - Symptoms w/ min exertion, interferes w/ nml daily activity (NSC lung cancer)
- ACC/AHA Stage
ACC/AHA Stage: Stage D: Advanced Heart Failure
== END 2024-01-09 16:00 | DRG 291 ==
LOC: 3 WEST ACU 18:01
PROVIDERS: Nurse Practitioner Gerontology; Physician Assistant; ADMITTING PHYSICIAN Internal Medicine; ATTENDING PHYSICIAN Internal Medicine; CONSULT PHYSICIAN Dentist Oral and Maxillofacial Surgery; CONSULT PHYSICIAN Student in an Organized Health Care Education/Training Program; EMERGENCY PHYSICIAN Student in an Organized Health Care Education/Training Program; FAMILY PHYSICIAN Family Medicine
DX: I11.0 Hypertensive heart disease with heart failure (principal); I50.23 Acute on chronic systolic (congestive) heart failure; J96.21 Acute and chronic respiratory failure with hypoxia; C34.90 Malignant neoplasm of unspecified part of unspecified bronchus or lung; I48.21 Permanent atrial fibrillation; C79.51 Secondary malignant neoplasm of bone; F13.20 Sedative, hypnotic or anxiolytic dependence, uncomplicated; Z79.01 Long term (current) use of anticoagulants; Z51.5 Encounter for palliative care; F41.9 Anxiety disorder, unspecified; G47.00 Insomnia, unspecified; E03.9 Hypothyroidism, unspecified; M17.0 Bilateral primary osteoarthritis of knee; G89.3 Neoplasm related pain (acute) (chronic)
CPT/HCPCS: 36600; 51798; 71045; 71046; 80048; 80053; 82248; 82805; 82962; 83036; 83605; 83735; 83880; 84100; 84484; 85025; 85027; 85610; 85730; 87070; 87147; 92526; 92610; 93005; 94640; 94660; 96374; 97116; 97163; 97167; 97530; 97535; 99285